=== PATIENT | female | born 1945 | race Caucasian/White ===

== ENCOUNTER → 2017-05-02 | Outpatient (CLI) | payer BC ==
[2015-03-08 14:41] VITALS: BP 107/54
[~2017-05-02] MED LIST: ASCO500C PO; ASPI-630 PO; CALC-42 PO; CARV12.52 PO; CHOL200074 PO; CITA40TA5 PO; CLON1TAB3 PO; DILT60TA3 PO; DOCU100C28 PO; EZET10TA18 PO; FLUT1DIS3 IH; FURO40TA4 PO; HYDR-2758 PO; INSU100V13 SQ; INSU100V8 SQ; LEVO50TA5 PO; LORA5SOL70 PO; METF500T9 PO; OMEG1CAP65 PO; POLY17PO29 PO; POT25TAB PO; POTA20PA21 PO; PROAIR HFA8.5 GM IH; SIMV40TA3 PO; SPIR25TA3 PO
--- NOTE | 2017-05-02 15:57 | RAD ---
Examination: 2 views of the chest. History: History of COPD, sleep apnea. Comparison: 03/05/2015 Findings: Low lung volumes accentuates heart size and pulmonary vascularity. Left-sided cardiac pacer /AICD is identified. Mild cardiomegaly. Linear atelectasis identified in the left lower lobe of the lung. Kyphotic and scoliotic changes of the thoracolumbar spine limits evaluation. Impression: 1. No acute cardiopulmonary findings.
== END | disposition home or self-care (01) ==
LOC: RAD 14:56
PROVIDERS: ATTEND Internal Medicine Pulmonary Disease
DX: J44.9 Chronic obstructive pulmonary disease, unspecified (principal)
CPT/HCPCS: 71020

== ENCOUNTER → 2017-05-28 | Outpatient (CLI) | payer BC ==
[2015-03-08 14:41] VITALS: BP 107/54
--- NOTE | 2017-05-28 17:28 | CARD ---
APPROVED REPORT EXAM: Two-dimensional and M-mode echocardiogram with Doppler and color Doppler. Other Information Quality : Technically Limited Rhythm : PacemakerTechnically limited study due to body habitus and positioning. INDICATION Cardiomyopathy 2D DIMENSIONS RVDd2.6 (2.9-3.5cm)Left Atrium(2D)4.1 (1.6-4.0cm) IVSd1.3 (0.7-1.1cm)Aortic Root(2D)2.9 (2.0-3.7cm) LVDd5.7 (3.9-5.9cm)LVOT Diameter2.3 (1.8-2.4cm) PWd1.3 (0.7-1.1cm)LVDs3.5 (2.5-4.0cm) SV111.5 mlLVEF(%)38.6 (>50%) Aortic Valve AoV Peak Amador.143.0cm/sAoV VTI29.1cm AO Peak GR.8.2mmHgLVOT Peak Amador.103.9cm/s LVOT VTI 20.29cmAO Mean GR.5mmHg GRAHAM (VMAX)3.55ro0ADK (VTI)2.89cm2 Mitral Valve MV E Crfwbzlv79.4cm/sMV DECEL UBWQ486zw MV A Qequmolx429.9cm/sMV E Mean Gr.2mmHg MV TWN83ryU/A Ratio0.8 MV A Kweshptz785ifSQO (PHT)4.26cm2 TDI E/Lateral E'8.9E/Medial E'9.5 Pulmonary Valve PV Peak Llsjpulo94.9cm/sPV Peak Grad.3mmHg RVOT VTI15.4cm Tricuspid Valve TR P. Fpzrynro928pg/sRAP PYBBREKF8ogOr TR Peak Gr.75uvAfUVNS22cpEk Pulmonary Vein S1 Dadedkts16.6cm/sD2 Oiaeqjkt32.8cm/s LEFT VENTRICLE Technically difficult study. The left ventricle is normal size. There is borderline to mild concentri c left ventricular hypertrophy. Left ventricle systolic function is moderately impaired. The Ejection Fraction is 35-40%. There is mild global hypokinesis of the left ventricle. Anterior wall appears mo derately hypokinetic. Tissue Doppler imaging reveals moderate left ventricular diastolic dysfunction. There is no ventricular septal defect visualized. RIGHT VENTRICLE The right ventricle is normal size. The right ventricular systolic function is normal. There is a pac emaker/ICD lead in the right ventricle and atrium. ATRIA The left atrium is borderline dilated. The right atrium size is normal. The interatrial septum is int act with no evidence for an atrial septal defect or patent foramen ovale as noted on 2-D or Doppler i maging. AORTIC VALVE The aortic valve is mildly to moderately sclerotic. Doppler and Color Flow revealed no significant ao rtic regurgitation. There is no significant aortic valvular stenosis. MITRAL VALVE Mitral annular calcification is mild to moderate. The mitral valve leaflets are thickened and calcifi ed. There is no mitral valve stenosis. Doppler and Color Flow revealed trace to mild mitral regurgita tion. TRICUSPID VALVE The tricuspid valve is not well visualized. Doppler and Color Flow revealed trace to mild tricuspid r egurgitation. The PA pressure was estimated at 26 mmHg. There is no tricuspid valve stenosis. PULMONIC VALVE The pulmonic valve is not well visualized. Doppler and Color Flow revealed no pulmonic valvular regur gitation. There is no pulmonic valvular stenosis. GREAT VESSELS The aortic root is normal in size. Normal pulmonary venous flow (Doppler). Due to poor image quality, the IVC could not be assessed. PERICARDIAL EFFUSION There is no evidence of significant pericardial effusion. Critical Notification Critical Value: No <Conclusion> Technically difficult study. The left ventricle is normal size. Left ventricle systolic function is moderately impaired. The Ejection Fraction is 35-40%. There is borderline to mild concentric left ventricular hypertrophy. There is a pacemaker/ICD lead in the right ventricle and atrium. There is no significant aortic valvular stenosis. Doppler and Color Flow revealed no significant aortic regurgitation. Doppler and Color Flow revealed trace to mild mitral regurgitation. Doppler and Color Flow revealed trace to mild tricuspid regurgitation. The PA pressure was estimated at 26 mmHg.
== END | disposition home or self-care (01) ==
LOC: ECHO 13:05
PROVIDERS: ATTEND Internal Medicine Cardiovascular Disease
DX: I42.8 Other cardiomyopathies (principal); Z95.0 Presence of cardiac pacemaker
CPT/HCPCS: 93306

== ENCOUNTER → 2017-07-09 | Outpatient (CLI) | payer BC ==
[2015-03-08 14:41] VITALS: BP 107/54
== END | disposition home or self-care (01) ==
LOC: PMGWOUND 11:33
PROVIDERS: ATTEND Emergency Medicine Undersea and Hyperbaric Medicine
DX: I87.312 Chronic venous hypertension (idiopathic) with ulcer of left lower extremity (principal); E11.622 Type 2 diabetes mellitus with other skin ulcer; L97.222 Non-pressure chronic ulcer of left calf with fat layer exposed; E78.5 Hyperlipidemia, unspecified; E03.9 Hypothyroidism, unspecified; F32.9 Major depressive disorder, single episode, unspecified; F41.9 Anxiety disorder, unspecified; I11.0 Hypertensive heart disease with heart failure; I50.9 Heart failure, unspecified; M19.90 Unspecified osteoarthritis, unspecified site; J44.9 Chronic obstructive pulmonary disease, unspecified; E66.01 Morbid (severe) obesity due to excess calories; Z87.891 Personal history of nicotine dependence; Z95.0 Presence of cardiac pacemaker; Z68.43 Body mass index [BMI] 50.0-59.9, adult
CPT/HCPCS: 97597

== ENCOUNTER → 2017-07-16 | Outpatient (CLI) | payer BC ==
[2015-03-08 14:41] VITALS: BP 107/54
[~2017-07-16] MED LIST changes: +ASCO500T2 PO; +CHOL10003 PO; +LORA1TAB PO; +METO-239 PO
== END | disposition home or self-care (01) ==
LOC: PMGWOUND 12:29
PROVIDERS: ATTEND Emergency Medicine Undersea and Hyperbaric Medicine
DX: I87.312 Chronic venous hypertension (idiopathic) with ulcer of left lower extremity (principal); L97.222 Non-pressure chronic ulcer of left calf with fat layer exposed; F41.9 Anxiety disorder, unspecified; J44.9 Chronic obstructive pulmonary disease, unspecified; E78.5 Hyperlipidemia, unspecified; I11.0 Hypertensive heart disease with heart failure; I50.9 Heart failure, unspecified; F32.9 Major depressive disorder, single episode, unspecified; E66.01 Morbid (severe) obesity due to excess calories; E03.9 Hypothyroidism, unspecified; M19.90 Unspecified osteoarthritis, unspecified site; Z68.43 Body mass index [BMI] 50.0-59.9, adult; Z87.891 Personal history of nicotine dependence; Z95.0 Presence of cardiac pacemaker
CPT/HCPCS: 97597

== ENCOUNTER → 2017-07-23 | Outpatient (CLI) | payer BC ==
[2015-03-08 14:41] VITALS: BP 107/54
[~2017-07-23] MED LIST changes: -ASCO500T2 PO; -CHOL10003 PO; -LORA1TAB PO; -METO-239 PO
== END | disposition home or self-care (01) ==
LOC: PMGWOUND 12:08
PROVIDERS: ATTEND Emergency Medicine Undersea and Hyperbaric Medicine
DX: I87.312 Chronic venous hypertension (idiopathic) with ulcer of left lower extremity (principal); L97.222 Non-pressure chronic ulcer of left calf with fat layer exposed; E78.5 Hyperlipidemia, unspecified; E03.9 Hypothyroidism, unspecified; F32.9 Major depressive disorder, single episode, unspecified; F41.9 Anxiety disorder, unspecified; I11.0 Hypertensive heart disease with heart failure; I50.9 Heart failure, unspecified; E66.01 Morbid (severe) obesity due to excess calories; M19.90 Unspecified osteoarthritis, unspecified site; J44.9 Chronic obstructive pulmonary disease, unspecified; Z87.891 Personal history of nicotine dependence; Z68.43 Body mass index [BMI] 50.0-59.9, adult; Z95.0 Presence of cardiac pacemaker
CPT/HCPCS: 99214

== ENCOUNTER → 2017-07-30 | Outpatient (CLI) | payer BC ==
[2015-03-08 14:41] VITALS: BP 107/54
[~2017-07-30] MED LIST changes: +ASCO500T2 PO; +CHOL10003 PO; +LORA1TAB PO; +METO-239 PO
== END | disposition home or self-care (01) ==
LOC: PMGWOUND 08:29
PROVIDERS: ATTEND Emergency Medicine Undersea and Hyperbaric Medicine
DX: I87.312 Chronic venous hypertension (idiopathic) with ulcer of left lower extremity (principal); E11.622 Type 2 diabetes mellitus with other skin ulcer; L97.222 Non-pressure chronic ulcer of left calf with fat layer exposed; I11.0 Hypertensive heart disease with heart failure; I50.9 Heart failure, unspecified; E78.5 Hyperlipidemia, unspecified; E03.9 Hypothyroidism, unspecified; F41.9 Anxiety disorder, unspecified; M19.90 Unspecified osteoarthritis, unspecified site; F32.9 Major depressive disorder, single episode, unspecified; J44.9 Chronic obstructive pulmonary disease, unspecified; E66.01 Morbid (severe) obesity due to excess calories; Z68.43 Body mass index [BMI] 50.0-59.9, adult; Z87.891 Personal history of nicotine dependence
CPT/HCPCS: 99214

== ENCOUNTER → 2017-08-01 | Day surgery (SDC) | payer BC ==
[~2017-08-01] MED LIST changes: -ASCO500C PO; -ASCO500T2 PO; -ASPI-630 PO; -CALC-42 PO; -CARV12.52 PO; -CHOL10003 PO; -CHOL200074 PO; -CITA40TA5 PO; -CLON1TAB3 PO; -DILT60TA3 PO; -DOCU100C28 PO; -EZET10TA18 PO; -FLUT1DIS3 IH; -FURO40TA4 PO; -HYDR-2758 PO; +HYDROmorphone 2 MG/ML VIAL IV; -INSU100V13 SQ; -INSU100V8 SQ; -LEVO50TA5 PO; +LIDOCAINE 1% PF 2 ML VIAL. ID; +LIDOCAINE 2% PF Vial for OR 5 ML VIAL.; -LORA1TAB PO; -LORA5SOL70 PO; -METF500T9 PO; -METO-239 PO; +MORPHINE SULFATE 2 MG/ML DISP.SYRIN. IV; -OMEG1CAP65 PO; +ONDANSETRON PF 4 MG/2 ML VIAL. IV; -POLY17PO29 PO; -POT25TAB PO; -POTA20PA21 PO; -PROAIR HFA8.5 GM IH; +PROCHLORPERAZINE 10 MG/2 ML VIAL. IV; +PROPOFOL 20 ML IV; -SIMV40TA3 PO; -SPIR25TA3 PO; +fentaNYL PF VIAL 100 MCG/2 ML VIAL IV
[2017-08-01] MEDS: IV RINGERS,LACTATED 1000ML 1,000 ML IV (12:14)
[2017-08-01 12:22] LABS: POC GLUCOSE 120 mg/dL (70-99)
== END | disposition home or self-care (01) ==
LOC: ENDOS 10:00
DX: Z09 Encounter for follow-up examination after completed treatment for conditions other than malignant neoplasm (principal); Z86.010 Personal history of colon polyps; K64.0 First degree hemorrhoids; K57.30 Diverticulosis of large intestine without perforation or abscess without bleeding; I11.0 Hypertensive heart disease with heart failure; I50.9 Heart failure, unspecified; E11.9 Type 2 diabetes mellitus without complications; J44.9 Chronic obstructive pulmonary disease, unspecified; E66.9 Obesity, unspecified; M19.91 Primary osteoarthritis, unspecified site; E03.9 Hypothyroidism, unspecified; F41.9 Anxiety disorder, unspecified; F32.9 Major depressive disorder, single episode, unspecified; F17.200 Nicotine dependence, unspecified, uncomplicated; Z87.01 Personal history of pneumonia (recurrent); Z98.890 Other specified postprocedural states; Z86.39 Personal history of other endocrine, nutritional and metabolic disease; Z88.1 Allergy status to other antibiotic agents; Z88.0 Allergy status to penicillin; Z88.8 Allergy status to other drugs, medicaments and biological substances
CPT/HCPCS: 45378; 82962; J0690; J2704

== ENCOUNTER → 2017-11-07 | Outpatient (CLI) | payer BC | END | disposition home or self-care (01) | LOC: RAD 13:30 | DX: J98.11 Atelectasis (principal); I51.7 Cardiomegaly; M40.294 Other kyphosis, thoracic region; J98.6 Disorders of diaphragm | CPT/HCPCS: 71046 ==

== ENCOUNTER 2018-09-05 09:14 | Observation (INO) | payer OTHER ==
[~2018-09-05] VITALS: Ht 152.4 cm; Wt 135.8 kg
[~2018-09-05 09:14] MED LIST changes: +ALBU2.5V8 IH; +ASCO500C PO; +ASCO500T2 PO; +ASPI-630 PO; +CALC-42 PO; +CARV12.511 PO; +CHOL10003 PO; +CHOL200074 PO; +CITA40TA5 PO; +CLON1TAB11 PO; +DILT60TA3 PO; +DOCU100C28 PO; +EZET10TA18 PO; +FLUT1DIS3 IH; +FURO40TA4 PO; +HYDR-2761 PO; -HYDROmorphone 2 MG/ML VIAL IV; +HYDROmorphone 2 MG/ML VIAL IV PRN; +INSU100V13 SQ; +INSU100V8 SQ; +IV RINGERS,LACTATED 1000ML 1,000 ML IV SCH; +LEVO50TA5 PO; -LIDOCAINE 1% PF 2 ML VIAL. ID; +LIDOCAINE 1% PF 2 ML VIAL. ID PRN; -LIDOCAINE 2% PF Vial for OR 5 ML VIAL.; +LORA1TAB PO; +LORA5SOL70 PO; +METF500T9 PO; +METO-239 PO; -MORPHINE SULFATE 2 MG/ML DISP.SYRIN. IV; +MORPHINE SULFATE 4 MG/ML VIAL. IV PRN; +OMEG1CAP65 PO; -ONDANSETRON PF 4 MG/2 ML VIAL. IV; +ONDANSETRON PF 4 MG/2 ML VIAL. IV PRN; +POLY17PO29 PO; +POT25TAB PO; +POTA20PA21 PO; -PROCHLORPERAZINE 10 MG/2 ML VIAL. IV; +PROCHLORPERAZINE 10 MG/2 ML VIAL. IV PRN; -PROPOFOL 20 ML IV; +SIMV40TA3 PO; +SPIR25TA5 PO; -fentaNYL PF VIAL 100 MCG/2 ML VIAL IV; +fentaNYL PF VIAL 100 MCG/2 ML VIAL IV PRN
[2018-09-05 09:53] VITALS: BP 152/73
[2018-09-05 10:44] LABS: HEMATOCRIT 43.3 % (36.0-47.0); HEMOGLOBIN 15.1 g/dL (12.0-15.5); RED BLOOD COUNT 4.8 x10^6/uL (3.50-5.40); RED CELL DISTRIBUTION WIDTH 13.7 % (11.5-14.5); WHITE BLOOD COUNT 7.3 x10^3/uL (4.0-11.0)
[2018-09-05 10:56] LABS: CALCIUM 9.6 mg/dL (8.5-10.1); CREATININE 1.1 mg/dL (0.6-1.0); POTASSIUM 4.4 mmol/L (3.5-5.1)
[2018-09-05 10:58] LABS: PROTHROMBIN TIME PATIENT 13.7 SEC (11.7-14.0)
[2018-09-05] MEDS ORDERED: BACITRACIN 50,000 UNIT in IV NORMAL SALINE 250ML 250 ML IRR ONE (11:00)
[2018-09-05] MEDS ORDERED: VANCOMYCIN 1GM IVPB FOR OMNI 250 ML IV PRN (11:00)
[2018-09-05] MEDS ORDERED: PROPOFOL 20 ML IV ONE (11:13)
[2018-09-05] MEDS ORDERED: PROPOFOL 50 ML IV ONE (11:13)
[2018-09-05] MEDS ORDERED: MIDAZOLAM HCL/PF 2 MG/2 ML VIAL. ONE ×3 (11:13→12:14)
--- NOTE | 2018-09-05 11:43 | PDOC ---
MODERATE SEDATION ASSESSMENT RISKS/ALTERNATIVES Risks/Alternatives Risks and alternatives of this type of sedation and procedure discussed with: RISK/ALTERNATIVES: Patient H & P ON CHART H & P H & P on chart and reviewed for co-morbid conditions and appropriate labs. H&P ON CHART: Yes STATUS PREG STATUS ASSESSED: N/A MEDS/ALLERGIES REVIEWED Meds/Allergies Reviewed Medications and Allergies including time and route of recently administered narcotics and sedatives. MEDS/ALLERGIES REVIEWED: Yes ASA RATING ASA RATING: III AIRWAY ASSESSMENT Airway Assessment Airway patency, oral function limitations, presence of caps, crowns, dentures, partials, and ability to extend neck assessed. AIRWAY ASSESSMENT: Yes MALLAMPATI SCORE MALLAMPATI SCORE: II PRE-SEDATION ASSESSMENT PRE-SEDATION ASSESSMENT: Yes KIRK BRUSH MD Sep 05, 2018 11:43
[2018-09-05] MEDS ORDERED: VANCOMYCIN 1GM IVPB FOR OMNI 250 ML ONE (11:47)
[2018-09-05] MEDS ORDERED: LIDOCAINE 2%/EPI 1:100,000 20 ML VIAL. ONE (11:50)
[2018-09-05] MEDS ORDERED: LIDOCAINE 2%/EPI 1:100,000 20 ML VIAL. IJ ONE (12:00)
[2018-09-05 13:18] VITALS: BP 121/66
[2018-09-05] MEDS ORDERED: ONDANSETRON PF 4 MG/2 ML VIAL. ONE (13:28)
[2018-09-05] MEDS ORDERED: NO ANTICOAGULANT THERAPY. MC PRN (13:30)
--- NOTE | 2018-09-05 14:37 | CARD ---
MR#: [id number] Date of Study: 09/05/2018 Ordering Physician: KIRK STALLINGS, Referring Physician: KIRK STALLINGS, Tech: APPROVED REPORT EXAM Successful [employer] biventricular ICD/DIGITAL INTERN-D new right ventricular lead insertion with generator bradley nge Defibrillation threshold measurement of the time of implantation INDICATIONS Nonischemic cardiomyopathy and prolonged QRS interval s/p biventricular ICD/DIGITAL INTERN-D implantation in the past presenting with device malfunction from right ventricle lead fracture PROCEDURE After explaining the risks, benefits, and alternative options, informed consent was obtained from the patient. The patient was brought to the cardiac catheterization lab and the left chest and shoulder were prepp ed and draped in the usual fashion. 30 mL of 2% lidocaine was infiltrated into the skin and subcutaneous tissues for local anesthesia. An incision was made over the previous scar and using blunt dissection and cautery the pocket was opene d, capsule exposed and opened and the previously placed generator removed from the pocket. The fractu red right ventricular lead was detached and. Venous access was obtained in the left subclavian vein a nd [address] Croatian [address] A [employer] bipolar active fixation right ventricular lead model 7122Q/ 58, serial number [id number] was advanced under fluoroscopy guidance and the tip was positioned in the right ventricle apex. This lead along with the previously placed right atrial and left ventricular l michelle were attached to a new [employer] biventricular ICD/DIGITAL INTERN-D generator model [id number], serial num mariana [id number]. This was placed in the pocket was subsequently closed in 3 layers. Hemostasis was secure d. Ventricular fibrillation was then induced to check the defibrillation threshold. Patient successfully converted to sinus rhythm with 25 J shock therapy with a shock impedance of 102 ohms. The right vent ricle lead showed sensing amplitude of 13 mV, impedance of 850 ohms and threshold of 0.5 V. Patient t olerated the procedure well. There were no immediate complications. CONCLUSION Successful [employer] biventricular ICD/DIGITAL INTERN-D right ventricular lead insertion with generator change for device malfunction secondary to right ventricle lead fracture. Signed by : Kirk Stallings, Electronically Approved : 09/05/2018 14:35:35
--- NOTE | 2018-09-05 15:16 | RAD ---
Portable chest, 09/05/2018: HISTORY: Check pacemaker placement Comparison is made to a study from 11/07/2017. A left-sided transvenous pacing device is in place there are 2 leads extending into the right ventricle. An additional lead overlying the left side of the heart presumably lies in a cardiac vein. The heart is enlarged. There is calcific plaquing the aorta. The right hemidiaphragm remains moderately elevated. There is mild linear scarring in the left midlung. No acute infiltrate is seen. There is no evidence of pneumothorax or pleural fluid. IMPRESSION: 1. Chronic elevation of the right hemidiaphragm. 2. Left midlung scarring. 3. Cardiomegaly and aortic atherosclerosis. Electronically signed by: Julito Hyatt MD (09/05/2018 3:12 PM) [facility]
[2018-09-05 15:35] VITALS: BP 129/63
[2018-09-05] MEDS: ALBUTEROL SULFATE 2.5 MG/3 ML NEBU. NEB SCH ×2 (17:07→20:26)
[2018-09-05] MEDS: metFORMIN 500 MG TABLET PO SCH (18:37)
[2018-09-05] MEDS: HYDROcodone/APAP 5/325MG 1 TAB TABLET PO PRN (18:38)
[2018-09-05] MEDS: LORazepam 1 MG TABLET PO SCH ×2 (18:41→23:23)
[2018-09-05 19:35] VITALS: BP 124/63
[2018-09-05] MEDS: BUDESONIDE 0.5 MG/2 ML NEBU. NEB SCH (20:26)
[2018-09-05] MEDS ORDERED: NON FORMULARY ITEM (Fluticasone/Salmeterol (Advair 250-50 Diskus) 1 PUFF) IH SCH (21:00)
[2018-09-05] MEDS: DOCUSATE SODIUM 100 MG CAPSULE. PO SCH (21:22)
[2018-09-05] MEDS: SPIRONOLACTONE 25 MG TABLET PO SCH (21:23)
[2018-09-05] MEDS: SIMVASTATIN 40 MG TABLET. PO SCH (21:23)
[2018-09-05] MEDS: INSULIN GLARGINE 300 UNITS/3 ML INSULN.PEN. SQ SCH (21:32)
[2018-09-05 23:00] VITALS: BP 126/52
[2018-09-05] MEDS ORDERED: VANCOMYCIN 1 GM in IV DEXTROSE 5% 250 ML IV ONE (23:30)
[2018-09-06 03:00] VITALS: BP 129/56
[2018-09-06] MEDS: HYDROcodone/APAP 5/325MG 1 TAB TABLET PO PRN ×3 (06:13→22:06)
[2018-09-06] MEDS: LEVOTHYROXINE 50 MCG TABLET PO SCH (06:13)
[2018-09-06 07:00] VITALS: BP 153/74
[2018-09-06] MEDS: METOPROLOL SUCC 24HR ER 50 MG TAB.ER.24H. PO SCH (08:55)
[2018-09-06] MEDS: DOCUSATE SODIUM 100 MG CAPSULE. PO SCH ×2 (08:55→22:06)
[2018-09-06] MEDS: CITALOPRAM 20 MG TABLET. PO SCH (08:55)
[2018-09-06] MEDS: SPIRONOLACTONE 25 MG TABLET PO SCH ×2 (08:55→22:06)
[2018-09-06] MEDS: EZETIMIBE 10 MG TABLET. PO SCH (08:55)
[2018-09-06] MEDS: metFORMIN 500 MG TABLET PO SCH ×2 (08:55→17:54)
[2018-09-06] MEDS: CETIRIZINE HCL 10 MG TABLET. PO SCH (08:56)
[2018-09-06] MEDS: FUROSEMIDE 40 MG TABLET. PO SCH (08:56)
[2018-09-06] MEDS: ASPIRIN CHEWABLE 81 MG TABLET. PO SCH (08:56)
[2018-09-06] MEDS: LORazepam 1 MG TABLET PO SCH ×3 (09:00→22:05)
[2018-09-06] MEDS: BUDESONIDE 0.5 MG/2 ML NEBU. NEB SCH ×2 (09:49→19:57)
[2018-09-06] MEDS: ALBUTEROL SULFATE 2.5 MG/3 ML NEBU. NEB SCH ×4 (09:49→19:58)
[2018-09-06] MEDS: INSULIN GLARGINE 300 UNITS/3 ML INSULN.PEN. SQ SCH ×2 (10:05→22:22)
[2018-09-06 11:00] VITALS: BP 155/70
[2018-09-06 15:00] VITALS: BP 168/72
[2018-09-06] MEDS: NYSTATIN TOPICAL POWDER 15GM BOTTLE. TP SCH ×2 (15:02→22:05)
--- NOTE | 2018-09-06 15:04 | RAD ---
Exam performed one view chest HISTORY: One day post pacemaker placement DATE OF SERVICE: 09/06/2018. COMPARISON: One view chest from 09/05/2018. Single AP upright portable view chest findings: Study somewhat limited due to poor respiratory effort. Heart size and mediastinal silhouette is stable. Pulmonary vascularity is mildly congested. There is a bipolar pacemaker in place. No pneumothorax. Mild linear left basilar opacities probably atelectasis. IMPRESSION: Stable mild cardiomegaly. Left-sided bipolar pacemaker. No pneumothorax seen. Electronically signed by: Jazz Albert MD (09/06/2018 3:00 PM) [facility]
[2018-09-06] MEDS ORDERED: MORPHINE SULFATE 4 MG/ML VIAL. IM ONE (17:30)
[2018-09-06] MEDS ORDERED: MORPHINE SULFATE 4 MG/ML VIAL. IV ONE (18:30)
[2018-09-06 19:47] VITALS: BP 162/56
[2018-09-06] MEDS: SIMVASTATIN 40 MG TABLET. PO SCH (22:06)
[2018-09-06 23:12] VITALS: BP 167/62
[2018-09-07] MEDS: HYDROcodone/APAP 5/325MG 1 TAB TABLET PO PRN ×3 (02:23→17:03)
[2018-09-07 03:07] VITALS: BP 160/70
[2018-09-07] MEDS: LEVOTHYROXINE 50 MCG TABLET PO SCH (06:00)
[2018-09-07 07:00] VITALS: BP 143/63
[2018-09-07] MEDS: BUDESONIDE 0.5 MG/2 ML NEBU. NEB SCH ×2 (08:06→19:18)
[2018-09-07] MEDS: ALBUTEROL SULFATE 2.5 MG/3 ML NEBU. NEB SCH ×4 (08:06→19:19)
[2018-09-07] MEDS: EZETIMIBE 10 MG TABLET. PO SCH (08:36)
[2018-09-07] MEDS: DOCUSATE SODIUM 100 MG CAPSULE. PO SCH ×2 (08:36→21:19)
[2018-09-07] MEDS: SPIRONOLACTONE 25 MG TABLET PO SCH ×2 (08:37→21:20)
[2018-09-07] MEDS: METOPROLOL SUCC 24HR ER 50 MG TAB.ER.24H. PO SCH (08:37)
[2018-09-07] MEDS: CITALOPRAM 20 MG TABLET. PO SCH (08:37)
[2018-09-07] MEDS: metFORMIN 500 MG TABLET PO SCH ×2 (08:37→17:01)
[2018-09-07] MEDS: FUROSEMIDE 40 MG TABLET. PO SCH (08:37)
[2018-09-07] MEDS: CETIRIZINE HCL 10 MG TABLET. PO SCH (08:37)
[2018-09-07] MEDS: ASPIRIN CHEWABLE 81 MG TABLET. PO SCH (08:37)
[2018-09-07] MEDS: NYSTATIN TOPICAL POWDER 15GM BOTTLE. TP SCH ×2 (08:41→21:20)
[2018-09-07] MEDS: INSULIN GLARGINE 300 UNITS/3 ML INSULN.PEN. SQ SCH ×2 (08:41→21:26)
[2018-09-07] MEDS: LORazepam 1 MG TABLET PO SCH ×3 (08:42→21:19)
[2018-09-07 11:00] VITALS: BP 140/61
--- NOTE | 2018-09-07 12:55 | PDOC ---
CARDIOLOGY PROGRESS NOTE SUBJECTIVE: Continued left arm pain from procedure. Doing better today. Denies any dyspnea, chest pain She is very debilitated and even unable to get up discussed/seen with RN at bedside. OBJECTIVE: Vital SIgns: Vital Signs Date Time Temp Pulse Resp B/P (MAP) Pulse Ox O2 Delivery O2 Flow Rate FiO2 09/07/18 12:08 94 Nasal Cannula 2.0 09/07/18 11:00 98.2 84 18 140/61 (87) 98.2 I & O Intake and Output 09/07/18 07:01 Intake Total 950 ml Output Total 910 ml Balance 40 ml Intake Oral 950 ml Output Urine Total 910 ml Objective: Morbidly obese. L pacer site is c/d/i. No edema of the LUE. Trace bilat lower ext edema. Normal heart tones. CURRENT MEDICATIONS: Current Medications Medications (Trade) Dose Ordered Sig/Rubina Start Time Stop Time Status Last Admin Dose Admin Acetaminophen/ Hydrocodone Bitart (Lortab 5/325) 1 tab PRN Q4HRS PRN 09/06/18 18:00 09/07/18 08:37 1 TAB Albuterol Sulfate (Ventolin Neb Soln) 2.5 mg RTQID 09/05/18 16:00 09/07/18 12:08 2.5 MG Aspirin (Children'S Aspirin) 81 mg DAILY 09/06/18 09:00 09/07/18 08:37 81 MG Bacitracin 27280 unit/Sodium Chloride 250 ml @ 250 mls/hr 1X ONCE 09/05/18 11:00 09/05/18 11:59 DC 09/05/18 11:00 250 MLS/HR Budesonide (Pulmicort) 0.5 mg RTBID 09/05/18 20:00 09/07/18 08:06 0.5 MG Cetirizine HCl (ZyrTEC) 10 mg DAILY 09/06/18 09:00 09/07/18 08:37 10 MG Citalopram Hydrobromide (CeleXA) 40 mg DAILY 09/06/18 09:00 09/07/18 08:37 40 MG Docusate Sodium (Colace) 100 mg BID 09/05/18 21:00 09/07/18 08:36 100 MG EZETIMIBE (Zetia) 10 mg DAILY 09/06/18 09:00 09/07/18 08:36 10 MG Fentanyl Citrate (Fentanyl 2ml Vial) 50 mcg PRN Q5MIN PRN 09/05/18 07:00 09/06/18 06:59 DC Furosemide (Lasix) 40 mg DAILY 09/06/18 09:00 09/07/18 08:37 40 MG Hydromorphone HCl (Dilaudid) 0.5 mg PRN Q10MIN PRN 09/05/18 07:00 09/06/18 06:59 DC Info (No Anticoagulant Therapy) 1 ea CONT PRN PRN 09/05/18 13:30 Insulin Glargine (Lantus) 40 units BID 09/05/18 21:00 09/07/18 08:41 40 UNITS Levothyroxine Sodium (Synthroid) 50 mcg DAILY06 09/06/18 06:00 09/07/18 06:00 50 MCG Lidocaine HCl (Xylocaine-Mpf 1% 2ml Vial) 2 ml PRN 1X PRN 09/05/18 07:00 09/06/18 06:59 DC Lidocaine/ Epinephrine (LIDOCAINE 2%-EPI 1:100,000 multi-dose) 30 ml 1X ONCE 09/05/18 12:00 09/05/18 12:01 DC 09/05/18 12:00 30 ML Lorazepam (Ativan) 1 mg TID 09/05/18 16:00 09/06/18 22:05 1 MG Metformin HCl (Glucophage) 500 mg BIDWMEALS 09/05/18 17:00 09/07/18 08:37 500 MG Metoprolol Succinate (Toprol Xl) 50 mg DAILY 09/06/18 09:00 09/07/18 08:37 50 MG Midazolam HCl (Versed) 2 mg STK-MED ONCE 09/05/18 12:14 09/05/18 12:16 DC Morphine Sulfate (Morphine Sulfate) 2 mg 1X ONCE 09/06/18 18:30 09/06/18 18:31 DC 09/06/18 18:14 2 MG Non-Formulary Medication (Fluticasone/ Salmeterol (Advair 250-50 Diskus)) 1 puff BID 09/05/18 21:00 UNV Nystatin (Nystop) 1 tello BID 09/06/18 14:31 09/07/18 08:41 1 TELLO Ondansetron HCl (Zofran) 4 mg STK-MED ONCE 09/05/18 13:28 09/05/18 13:30 DC Prochlorperazine Edisylate (Compazine) 5 mg PACU PRN PRN 09/05/18 07:00 09/06/18 06:59 DC Propofol 50 ml @ As Directed STK-MED ONCE 09/05/18 11:13 09/05/18 11:15 DC Ringer's Solution 1,000 ml @ 30 mls/hr Q24H 09/05/18 07:00 09/05/18 18:43 DC Simvastatin (Zocor) 40 mg QHS 09/05/18 21:00 09/06/18 22:06 40 MG Spironolactone (Aldactone) 25 mg BID 09/05/18 21:00 09/07/18 08:37 25 MG Vancomycin HCl 250 ml @ As Directed STK-MED ONCE 09/05/18 11:47 09/05/18 11:49 DC Vancomycin HCl 1 gm/Dextrose 250 ml @ 250 mls/hr 1X ONCE 09/05/18 23:30 09/06/18 00:29 DC 09/05/18 23:22 250 MLS/HR ASSESSMENT: 1. Debility 2. s/p BiV ICD 3. HTN 4. NICM PLAN: 1 Plan for DC to rehab when bed available. 2. Continue present meds. Consider outpt entresto. DAYAMI NIX MD Sep 07, 2018 12:55
[2018-09-07 15:00] VITALS: BP 120/63
[2018-09-07 19:57] VITALS: BP 107/59
[2018-09-07] MEDS: SIMVASTATIN 40 MG TABLET. PO SCH (21:19)
[2018-09-07 23:26] VITALS: BP 129/72
[2018-09-08] MEDS ORDERED: ACETAMINOPHEN 325 MG TABLET. PO ONE (02:00)
[2018-09-08 02:03] VITALS: BP 154/56
[2018-09-08] MEDS: LEVOTHYROXINE 50 MCG TABLET PO SCH (06:19)
[2018-09-08 07:00] VITALS: BP 134/64
[2018-09-08] MEDS: BUDESONIDE 0.5 MG/2 ML NEBU. NEB SCH (07:49)
[2018-09-08] MEDS: ALBUTEROL SULFATE 2.5 MG/3 ML NEBU. NEB SCH ×3 (07:49→16:35)
[2018-09-08] MEDS ORDERED: HYDROcodone/APAP 5/325MG 1 TAB TABLET PO PRN ×2 (08:45→12:30)
[2018-09-08] MEDS: NYSTATIN TOPICAL POWDER 15GM BOTTLE. TP SCH (09:18)
[2018-09-08] MEDS: CETIRIZINE HCL 10 MG TABLET. PO SCH (09:18)
[2018-09-08] MEDS: EZETIMIBE 10 MG TABLET. PO SCH (09:24)
[2018-09-08] MEDS: LORazepam 1 MG TABLET PO SCH ×2 (09:24→13:25)
[2018-09-08] MEDS: CITALOPRAM 20 MG TABLET. PO SCH (09:24)
[2018-09-08] MEDS: metFORMIN 500 MG TABLET PO SCH (09:25)
[2018-09-08] MEDS: ASPIRIN CHEWABLE 81 MG TABLET. PO SCH (09:26)
[2018-09-08] MEDS: DOCUSATE SODIUM 100 MG CAPSULE. PO SCH (09:26)
[2018-09-08] MEDS: SPIRONOLACTONE 25 MG TABLET PO SCH (09:26)
[2018-09-08] MEDS: FUROSEMIDE 40 MG TABLET. PO SCH (09:26)
[2018-09-08] MEDS: METOPROLOL SUCC 24HR ER 50 MG TAB.ER.24H. PO SCH (09:26)
[2018-09-08] MEDS: INSULIN GLARGINE 300 UNITS/3 ML INSULN.PEN. SQ SCH (09:32)
--- NOTE | 2018-09-08 10:04 | PDOC ---
MILTON HENRY [employer] 09/08/18 1004: CARDIO Progress Notes Date and Time Date of Service 09/08/18 Time of Evaluation 0950 Subjective Subjective: No Chest Pain, No shortness of breath, Other (c/o right lower back pain) Vitals Vitals Vital Signs Date Time Temp Pulse Resp B/P (MAP) Pulse Ox O2 Delivery O2 Flow Rate FiO2 09/08/18 09:26 75 134/64 09/08/18 09:24 18 Room Air 09/08/18 07:49 94 2.0 09/08/18 07:00 98.8 98.8 Weight Weight [ ] Input and Output Intake and Output Intake and Output 09/08/18 07:01 Intake Total 720 ml Output Total 2275 ml Balance -1555 ml Intake Oral 720 ml Output Urine Total 2275 ml Laboratory Labs Laboratory Tests Test 09/07/18 11:11 09/07/18 17:13 09/07/18 21:03 09/08/18 07:41 Glucose (Fingerstick) 203 mg/dL (70-99) 177 mg/dL (70-99) 218 mg/dL (70-99) 166 mg/dL (70-99) Physical Exam HEENT: Neck Supple W Full Motion Chest: Symmetric LUNGS: Clear to Auscultation, Other (left pectoral PPM insertion site; incision well-approximated. No hematoma, erythema) Heart: S1S2, RRR Abdomen: Soft N/T Extremities: No Edema Neurology: alert, oriented, follow commands Assessment Assessment 1. Debility; PT/OT recommend rehab. Awaiting insurance approval/facility acceptance 2. Chronic systolic HF; compensated 3. NICM s/p BiV AICD ([employer]). s/p RV lead insertion with generator change for device malfunction secondary to lead fracture. 4. Hypertension 5. Diabetes,II 6. COPD, MIRIAM Recommendations Ongoing PT/OT Encouraged ambulation Resume home Lortab for pain control Transfer to rehab facility when accepted. SIM SHAW MD 09/08/18 2981: CARDIO Progress Notes Plan Plan Patient seen and examined Feeling better but still weak. Chronic systolic heart failure. Compensated. Continuing present medications. Nonischemic cardiomyopathy. Status post right ventricular lead revision and generator placement. Normal functioning. Continue present treatment. Hypertension. Controlled on present medications. Debility. Patient is unable to care for herself. Awaiting transfer to rehabilitation. MILTON HENRY APRN Sep 08, 2018 10:04 SIM SHAW MD Sep 08, 2018 17:48
[2018-09-08 11:20] VITALS: BP 146/62
[2018-09-08 15:06] VITALS: BP 148/72
== END 2018-09-08 16:45 ==
LOC: CCL 09:14 → 2 NORTH 09:50 → INTOOBSV 09:50
PROVIDERS: ADMIT Internal Medicine Cardiovascular Disease; ATTEND Internal Medicine Cardiovascular Disease
DX: I50.22 Chronic systolic (congestive) heart failure (principal); E78.5 Hyperlipidemia, unspecified; Z95.810 Presence of automatic (implantable) cardiac defibrillator; I11.0 Hypertensive heart disease with heart failure; E11.9 Type 2 diabetes mellitus without complications; F41.9 Anxiety disorder, unspecified; F32.9 Major depressive disorder, single episode, unspecified; C81.70 Other Hodgkin lymphoma, unspecified site; G83.9 Paralytic syndrome, unspecified; K76.0 Fatty (change of) liver, not elsewhere classified; M19.90 Unspecified osteoarthritis, unspecified site; G47.33 Obstructive sleep apnea (adult) (pediatric); M79.7 Fibromyalgia; I11.9 Hypertensive heart disease without heart failure; I43 Cardiomyopathy in diseases classified elsewhere; J44.9 Chronic obstructive pulmonary disease, unspecified; J45.909 Unspecified asthma, uncomplicated; M25.569 Pain in unspecified knee; I27.20 Pulmonary hypertension, unspecified; I25.10 Atherosclerotic heart disease of native coronary artery without angina pectoris; M71.50 Other bursitis, not elsewhere classified, unspecified site; K57.90 Diverticulosis of intestine, part unspecified, without perforation or abscess without bleeding; M25.00 Hemarthrosis, unspecified joint; Z98.890 Other specified postprocedural states
CPT/HCPCS: 33264; 36415; 71045; 80048; 82962; 85027; 85610; 93641; 94640; 94760; 96365; 96372; 96375; 97162; 97166; C1882; C1895; G0378; G0379; G8987; G8988; G8989; J1815; J2250; J2270; J2704; J3010; J3370; J3490; J7050; J7613; J7626; 33249; J7030

== ENCOUNTER 2018-09-22 23:42 | Inpatient (IN) | payer OTHER ==
[~2018-09-22] VITALS: Ht 160 cm; Wt 139.7 kg
[~2018-09-22 23:42] MED LIST changes: -HYDROmorphone 2 MG/ML VIAL IV PRN; -IV RINGERS,LACTATED 1000ML 1,000 ML IV SCH; -LIDOCAINE 1% PF 2 ML VIAL. ID PRN; -MORPHINE SULFATE 4 MG/ML VIAL. IV PRN; -ONDANSETRON PF 4 MG/2 ML VIAL. IV PRN; -PROCHLORPERAZINE 10 MG/2 ML VIAL. IV PRN; -fentaNYL PF VIAL 100 MCG/2 ML VIAL IV PRN
[2018-09-23 01:06] LABS: BILIRUBIN,URINE NEGATIVE (NEG); CLARITY,URINE CLEAR; COLOR,URINE YELLOW; NITRITE,URINE NEGATIVE (NEG); PROTEIN,URINE NEGATIVE (NEG-TRACE); UROBILINOGEN,URINE 0.2 mg/dL (0.2 mg/dL)
[2018-09-23 01:17] LABS: AMORPHOUS SEDIMENT,UR PRESENT /HPF; BACTERIA,URINE FEW /HPF (0-FEW); RBC,URINE 0 /HPF (0-2); SQUAMOUS EPITHELIAL CELL,UR MANY /LPF
--- NOTE | 2018-09-23 01:25 | PHYS DOC ---
Past Medical History Past Medical History: CHF, COPD, Diabetes-Type II, Fibromyalgia, High Cholesterol, Hypertension, Other Additional Past Medical Histor: OSTEOARTHRITIS Past Surgical History: Appendectomy, Pacemaker, Tonsillectomy Alcohol Use: None Drug Use: None Adult General Chief Complaint Chief Complaint: POST-OP PROBLEM HPI HPI Patient is a 72 year old [f__sex] who presents with [] Review of Systems Review of Systems Constitutional: Denies fever or chills [] Eyes: Denies change in visual acuity, redness, or eye pain [] HENT: Denies nasal congestion or sore throat [] Respiratory: Denies cough or shortness of breath [] Cardiovascular: No additional information not addressed in HPI [] GI: Denies abdominal pain, nausea, vomiting, bloody stools or diarrhea [] : Denies dysuria or hematuria [] Musculoskeletal: Denies back pain or joint pain [] Integument: Denies rash or skin lesions [] Neurologic: Denies headache, focal weakness or sensory changes [] Endocrine: Denies polyuria or polydipsia [] All other systems were reviewed and found to be within normal limits, except as documented in this note. Current Medications Current Medications Current Medications Medications (Trade) Dose Ordered Sig/Rubina Start Time Stop Time Status Last Admin Dose Admin Clindamycin Phosphate 50 ml @ 100 mls/hr 1X ONCE 09/23/18 03:00 09/23/18 03:29 Dextrose (Dextrose 50%-Water Syringe) 12.5 gm PRN Q15MIN PRN 09/23/18 02:45 Fentanyl Citrate (Fentanyl 2ml Vial) 25 mcg PRN Q2HRS PRN 09/23/18 02:45 Insulin Human Lispro (HumaLOG) 0-5 UNITS TIDWMEALS 09/23/18 08:00 Magnesium Sulfate 50 ml @ 25 mls/hr 1X ONCE 09/23/18 03:00 09/23/18 04:59 Ondansetron HCl (Zofran) 4 mg PRN Q8HRS PRN 09/23/18 02:45 09/24/18 02:44 Allergies Allergies Allergies Coded Allergies Type Severity Reaction Last Updated Verified YURY Inhibitors Allergy Intermediate 08/01/17 Yes Penicillins Allergy Intermediate 08/01/17 Yes droperidol Allergy Intermediate 08/01/17 Yes nitrofurantoin Allergy Intermediate 08/01/17 Yes Physical Exam Physical Exam Constitutional: Well developed, well nourished, no acute distress, non-toxic appearance. [] HENT: Normocephalic, atraumatic, bilateral external ears normal, oropharynx moist, no oral exudates, nose normal. [] Eyes: PERRLA, EOMI, conjunctiva normal, no discharge. [] Neck: Normal range of motion, no tenderness, supple, no stridor. [] Cardiovascular:Heart rate regular rhythm, no murmur [] Lungs & Thorax: Bilateral breath sounds clear to auscultation [] Abdomen: Bowel sounds normal, soft, no tenderness, no masses, no pulsatile masses. [] Skin: Warm, dry, no erythema, no rash. [] Back: No tenderness, no CVA tenderness. [] Extremities: No tenderness, no cyanosis, no clubbing, ROM intact, no edema. [] Neurologic: Alert and oriented X 3, normal motor function, normal sensory function, no focal deficits noted. [] Psychologic: Affect normal, judgement normal, mood normal. [] Current Patient Data Vital Signs Vital Signs Date Time Temp Pulse Resp B/P (MAP) Pulse Ox O2 Delivery O2 Flow Rate FiO2 09/23/18 01:35 13 95 Room Air 09/23/18 00:05 98.7 56 168/72 (104) 98.7 Lab Values Laboratory Tests Test 09/23/18 00:55 09/23/18 01:15 Urine Collection Type U cath Urine Color Yellow Urine Clarity Clear Urine pH 6.0 Urine Specific Everett 1.010 Urine Protein Negative mg/dL (NEG-TRACE) Urine Glucose (UA) Negative mg/dL (NEG) Urine Ketones (Stick) Negative mg/dL (NEG) Urine Blood Negative (NEG) Urine Nitrite Negative (NEG) Urine Bilirubin Negative (NEG) Urine Urobilinogen Dipstick 0.2 mg/dL (0.2 mg/dL) Urine Leukocyte Esterase Moderate (NEG) Urine RBC 0 /HPF (0-2) Urine WBC 5-10 /HPF (0-4) Urine Squamous Epithelial Cells Many /LPF Urine Transitional Epithelial Cells Occ /LPF Urine Amorphous Sediment Present /HPF Urine Bacteria Few /HPF (0-FEW) Urine Mucus Slight /LPF White Blood Count 9.8 x10^3/uL (4.0-11.0) Red Blood Count 4.34 x10^6/uL (3.50-5.40) Hemoglobin 12.7 g/dL (12.0-15.5) Hematocrit 38.8 % (36.0-47.0) Mean Corpuscular Volume 89 fL (79-100) Mean Corpuscular Hemoglobin 29 pg (25-35) Mean Corpuscular Hemoglobin Concent 33 g/dL (31-37) Red Cell Distribution Width 13.5 % (11.5-14.5) Platelet Count 195 x10^3/uL (140-400) Neutrophils (%) (Auto) 63 % (31-73) Lymphocytes (%) (Auto) 21 % (24-48) L Monocytes (%) (Auto) 13 % (0-9) H Eosinophils (%) (Auto) 2 % (0-3) Basophils (%) (Auto) 1 % (0-3) Neutrophils # (Auto) 6.2 x10^3uL (1.8-7.7) Lymphocytes # (Auto) 2.1 x10^3/uL (1.0-4.8) Monocytes # (Auto) 1.3 x10^3/uL (0.0-1.1) H Eosinophils # (Auto) 0.2 x10^3/uL (0.0-0.7) Basophils # (Auto) 0.1 x10^3/uL (0.0-0.2) Sodium Level 139 mmol/L (136-145) Potassium Level 3.9 mmol/L (3.5-5.1) Chloride Level 99 mmol/L (98-107) Carbon Dioxide Level 31 mmol/L (21-32) Anion Gap 9 (6-14) Blood Urea Nitrogen 17 mg/dL (7-20) Creatinine 0.9 mg/dL (0.6-1.0) Estimated GFR (Cockcroft-Gault) 61.7 BUN/Creatinine Ratio 19 (6-20) Glucose Level 131 mg/dL (70-99) H Lactic Acid Level 1.4 mmol/L (0.4-2.0) Calcium Level 9.7 mg/dL (8.5-10.1) Magnesium Level 1.2 mg/dL (1.8-2.4) L Total Bilirubin 0.5 mg/dL (0.2-1.0) Aspartate Amino Transferase (AST) 17 U/L (15-37) Alanine Aminotransferase (ALT) 29 U/L (14-59) Alkaline Phosphatase 59 U/L (46-116) Creatine Kinase 117 U/L (26-192) Creatine Kinase MB (Mass) 0.9 ng/mL (0.0-3.6) Creatine Kinase MB Relative Index 0.8 % (0-4) Troponin I Quantitative < 0.017 ng/mL (0.000-0.055) GP-Ppu-K-Type Natriuretic Peptide 253 pg/mL (0-124) H Total Protein 6.8 g/dL (6.4-8.2) Albumin 3.2 g/dL (3.4-5.0) L Albumin/Globulin Ratio 0.9 (1.0-1.7) L Laboratory Tests 09/23/18 01:15 Laboratory Tests 09/23/18 01:15 EKG EKG [] Radiology/Procedures Radiology/Procedures Portable CXR (preliminary interpretation by ED physician): Low lung volumes, possible bilateral pleural effusions vs poor effort Course & Med Decision Making Course & Med Decision Making Pertinent Labs and Imaging studies reviewed. (See chart for details) [] Dragon Disclaimer Dragon Disclaimer This electronic medical record was generated, in whole or in part, using a voice recognition dictation system. Departure Departure Impression: Primary Impression: Chest wall pain Additional Impressions: Erythema Hypomagnesemia History of cardiac pacemaker Disposition: ADMITTED INPATIENT Admitting Physician: Other (Dr. Sexton) Condition: STABLE Referrals: GRANT CANCINO MD (PCP) Problem Qualifiers LOS RON DO Sep 23, 2018 01:25
[2018-09-23] MEDS ORDERED: fentaNYL PF VIAL 100 MCG/2 ML VIAL IV ONE (01:30)
[2018-09-23 01:34] LABS: BASO # 0.1 x10^3/uL (0.0-0.2); BASO % 1 % (0-3); EOS # 0.2 x10^3/uL (0.0-0.7); EOS % 2 % (0-3); HEMATOCRIT 38.8 % (36.0-47.0); HEMOGLOBIN 12.7 g/dL (12.0-15.5); LYMPH # 2.1 x10^3/uL (1.0-4.8); LYMPH % 21 % (24-48); MEAN CORPUSCULAR HEMOGLOBIN 29 pg (25-35); MEAN CORPUSCULAR HGB CONC 33 g/dL (31-37); MEAN CORPUSCULAR VOLUME 89 fL (79-100); MONO # 1.3 x10^3/uL (0.0-1.1); MONO % 13 % (0-9); NEUT # 6.2 x10^3uL (1.8-7.7); NEUT % 63 % (31-73); PLATELET COUNT 195 x10^3/uL (140-400); RED BLOOD COUNT 4.34 x10^6/uL (3.50-5.40); RED CELL DISTRIBUTION WIDTH 13.5 % (11.5-14.5); WHITE BLOOD COUNT 9.8 x10^3/uL (4.0-11.0)
[2018-09-23 01:48] LABS: CALCIUM 9.7 mg/dL (8.5-10.1); CREATININE 0.9 mg/dL (0.6-1.0); GFR 61.7; POTASSIUM 3.9 mmol/L (3.5-5.1)
[2018-09-23 01:54] LABS: ALBUMIN 3.2 g/dL (3.4-5.0); ALBUMIN/GLOBULIN RATIO 0.9 (1.0-1.7); MAGNESIUM 1.2 mg/dL (1.8-2.4); TOTAL BILIRUBIN 0.5 mg/dL (0.2-1.0); TOTAL PROTEIN 6.8 g/dL (6.4-8.2)
[2018-09-23] MEDS ORDERED: ONDANSETRON PF 4 MG/2 ML VIAL. IV PRN ×2 (02:45→11:15)
[2018-09-23] MEDS ORDERED: DEXTROSE 50% 25 GM / 50ML DISP.SYRIN. IV PRN (02:45)
[2018-09-23] MEDS ORDERED: fentaNYL PF VIAL 100 MCG/2 ML VIAL IV PRN (02:45)
[2018-09-23] MEDS ORDERED: MAGNESIUM SULFATE 2GM 50 ML IV ONE ×2 (03:00→12:00)
[2018-09-23] MEDS ORDERED: CLINDAMYCIN 600MG PREMIX 50 ML IV ONE (03:00)
[2018-09-23 03:46] VITALS: BP 130/62
--- NOTE | 2018-09-23 04:42 | NUR ---
Received report from Cecille HO in the emergency department. Patient arrived to unit via bed. No family present during admission and patient claimed that no one is involved with her care. She stated she had a son but he has not visited her since she was in the hospital at [facility], and during her stay the last couple of weeks at [facility]. Patient had one green bag of belongings that were secured in the left side of her closet. Patient reports her pain is a 2 out of 10 and located on her left upper anterior chest wall around the surgical incision site of her pacemaker. Patient has been orientated to the unit with her call light placed in reach. Her bed has been set at the lowest position and locked. Will continue to monitor the patient.
[2018-09-23] MEDS ORDERED: CETI10TA16 PO (05:43)
[2018-09-23] MEDS ORDERED: BISA10SU55 RC (05:43)
[2018-09-23] MEDS ORDERED: SALI44.3 MM (05:43)
[2018-09-23] MEDS ORDERED: BUDE0.5A IH (05:43)
[2018-09-23] MEDS ORDERED: GUAI600T79 PO (05:43)
[2018-09-23] MEDS ORDERED: FLUC100T4 PO (05:43)
[2018-09-23] MEDS ORDERED: BENZ200C47 PO (05:43)
[2018-09-23] MEDS ORDERED: AMMO225L8 TP (05:43)
[2018-09-23] MEDS ORDERED: NYST1POW2 PO (05:43)
[2018-09-23 07:00] VITALS: BP 169/78
[2018-09-23] MEDS: INSULIN LISPRO 300 UNITS/3 ML INSULN.PEN. SQ SCH ×3 (08:00→16:57)
--- NOTE | 2018-09-23 08:06 | RAD ---
Examination: CHEST AP ONLY History: difficulty breathing Comparison/Correlation: 09/06/2018 portable upright chest x-ray exam Findings: Portable upright frontal view chest was obtained. Multiple lead left-sided ICD noted. Heart size is within normal limits. Limited pulmonary inflation is present. Elevation right hemidiaphragm is similar to prior exam. No new pleural effusion. Evaluation of the retrocardiac region is limited due to underpenetrated technique and patient body habitus. Left hemidiaphragm is not delineated as on the prior exam. This may represent underlying atelectasis or effusion. Impression: Retrocardiac left basilar aspect is not well delineated. Left hemidiaphragm is not delineated. Correlate for underlying effusion or atelectasis. Consider lateral view for more complete assessment if indicated. Electronically signed by: Handy Childers MD (09/23/2018 8:01 AM) [facility]
--- NOTE | 2018-09-23 10:52 | PDOC2 ---
CARDIAC CONSULT DATE OF CONSULT Date of Consult DATE: 09/23/18 TIME: 10:43 REASON FOR CONSULT Reason for Consult: Chest wall pain, erythema, recent pacer REFERRING PHYSICIAN Referring Physician: [place] SOURCE Source: Chart review, Patient HISTORY OF PRESENT ILLNESS HISTORY OF PRESENT ILLNESS This is a pleasant 72 yo female admitted for complains of chest pain. Reports that she has been having left chest pain in the last few days. This was around her FRONT DESK CLERK-D site. It hurts when pressed around the region and also when she moves her arm. Reports no fever or chills. The incision appears to be approximated with steristrips and no oozing to site and no erythema except around region with mild pink erythema circumscribed around. No hard lesions around site with no significant induration but tender to touch. She verablized that it feels puffy. No nausea. Reports that her legs have been more swollen as well and no significant SOA with her rehab. She does take lasix and has been seen by lymphedema specialist. PAST MEDICAL HISTORY Past Medical History Cardiovascular: CAD (mild non-obstructive on cath 01/2014), CHF (chronic systolic; LVEF 25% by echo 11/2014), HTN, Hyperlipidemia, MR Pulmonary: COPD, Other (MIRIAM with CPAP) GI: GERD, Other (obesity) Psych: Anxiety Musculoskeletal: Osteoarthritis Rheumatologic: Fibromyalgia Endocrine: Diabetes Dermatology: No pertinent hx PAST SURGICAL HISTORY Past Surgical History FRONT DESK CLERK-D with recent Gen change and RV lead replacement due to fracture on 2018, Appendectomy, Tonsillectomy SOCIAL HISTORY Smoke: No ALCOHOL: none Drugs: None Lives: [facility] CURRENT MEDICATIONS CURRENT MEDICATIONS Current Medications Medications (Trade) Dose Ordered Sig/Rubina Route PRN Reason Start Time Stop Time Status Last Admin Dose Admin Fentanyl Citrate (Fentanyl 2ml Vial) 50 mcg 1X ONCE IV 09/23/18 01:30 09/23/18 01:31 DC 09/23/18 01:35 Magnesium Sulfate 50 ml @ 25 mls/hr 1X ONCE IV 09/23/18 03:00 09/23/18 04:59 DC 09/23/18 06:27 Clindamycin Phosphate 50 ml @ 100 mls/hr 1X ONCE IV 09/23/18 03:00 09/23/18 03:29 DC 09/23/18 03:10 ALLERGIES ALLERGIES: Coded Allergies: YURY Inhibitors (Verified Allergy, Intermediate, 08/01/17) Penicillins (Verified Allergy, Intermediate, 08/01/17) droperidol (Verified Allergy, Intermediate, 08/01/17) nitrofurantoin (Verified Allergy, Intermediate, 08/01/17) ROS Review of System 14 point ROS evaluated with pertinent positives noted per HPI PHYSICAL EXAM General: Alert, Oriented X3, Cooperative, No acute distress HEENT: Atraumatic, Mucous membr. moist/pink Lungs: Other (faint upper wheeze, basilar crackles) Heart: Regular rate, Other (distant heart sounds) Abdomen: Soft, Other (obese) Extremities: Other (chronic lymphedema) Skin: No breakdown, No significant lesion, Other (left chest incision appears to be approximated with steristrips and no oozing to site and no erythema except around region with mild pink erythema circumscribed around) Neuro: Normal speech, Sensation intact Psych/Mental Status: Mental status NL, Mood NL MUSCULOSKELETAL: Osteoarthritic changes both hands VITALS VITALS Vital Signs Date Time Temp Pulse Resp B/P (MAP) Pulse Ox O2 Delivery O2 Flow Rate FiO2 09/23/18 07:00 97.6 82 18 169/78 (108) 98 Nasal Cannula 2.0 97.6 LABS Lab: Laboratory Tests Test 09/23/18 00:55 09/23/18 01:15 09/23/18 07:15 Urine Collection Type U cath Urine Color Yellow Urine Clarity Clear Urine pH 6.0 Urine Specific [place] 1.010 Urine Protein Negative mg/dL (NEG-TRACE) Urine Glucose (UA) Negative mg/dL (NEG) Urine Ketones (Stick) Negative mg/dL (NEG) Urine Blood Negative (NEG) Urine Nitrite Negative (NEG) Urine Bilirubin Negative (NEG) Urine Urobilinogen Dipstick 0.2 mg/dL (0.2 mg/dL) Urine Leukocyte Esterase Moderate (NEG) Urine RBC 0 /HPF (0-2) Urine WBC 5-10 /HPF (0-4) Urine Squamous Epithelial Cells Many /LPF Urine Transitional Epithelial Cells Occ /LPF Urine Amorphous Sediment Present /HPF Urine Bacteria Few /HPF (0-FEW) Urine Mucus Slight /LPF White Blood Count 9.8 x10^3/uL (4.0-11.0) Red Blood Count 4.34 x10^6/uL (3.50-5.40) Hemoglobin 12.7 g/dL (12.0-15.5) Hematocrit 38.8 % (36.0-47.0) Mean Corpuscular Volume 89 fL (79-100) Mean Corpuscular Hemoglobin 29 pg (25-35) Mean Corpuscular Hemoglobin Concent 33 g/dL (31-37) Red Cell Distribution Width 13.5 % (11.5-14.5) Platelet Count 195 x10^3/uL (140-400) Neutrophils (%) (Auto) 63 % (31-73) Lymphocytes (%) (Auto) 21 % (24-48) Monocytes (%) (Auto) 13 % (0-9) Eosinophils (%) (Auto) 2 % (0-3) Basophils (%) (Auto) 1 % (0-3) Neutrophils # (Auto) 6.2 x10^3uL (1.8-7.7) Lymphocytes # (Auto) 2.1 x10^3/uL (1.0-4.8) Monocytes # (Auto) 1.3 x10^3/uL (0.0-1.1) Eosinophils # (Auto) 0.2 x10^3/uL (0.0-0.7) Basophils # (Auto) 0.1 x10^3/uL (0.0-0.2) Sodium Level 139 mmol/L (136-145) Potassium Level 3.9 mmol/L (3.5-5.1) Chloride Level 99 mmol/L (98-107) Carbon Dioxide Level 31 mmol/L (21-32) Anion Gap 9 (6-14) Blood Urea Nitrogen 17 mg/dL (7-20) Creatinine 0.9 mg/dL (0.6-1.0) Estimated GFR (Cockcroft-Gault) 61.7 BUN/Creatinine Ratio 19 (6-20) Glucose Level 131 mg/dL (70-99) Lactic Acid Level 1.4 mmol/L (0.4-2.0) Calcium Level 9.7 mg/dL (8.5-10.1) Magnesium Level 1.2 mg/dL (1.8-2.4) Total Bilirubin 0.5 mg/dL (0.2-1.0) Aspartate Amino Transf (AST/SGOT) 17 U/L (15-37) Alanine Aminotransferase (ALT/SGPT) 29 U/L (14-59) Alkaline Phosphatase 59 U/L (46-116) Creatine Kinase 117 U/L (26-192) Creatine Kinase MB (Mass) 0.9 ng/mL (0.0-3.6) Creatine Kinase MB Relative Index 0.8 % (0-4) Troponin I Quantitative < 0.017 ng/mL (0.000-0.055) TG-Qfv-E-Type Natriuretic Peptide 253 pg/mL (0-124) Total Protein 6.8 g/dL (6.4-8.2) Albumin 3.2 g/dL (3.4-5.0) Albumin/Globulin Ratio 0.9 (1.0-1.7) Glucose (Fingerstick) 131 mg/dL (70-99) ECHOCARDIOGRAM ECHOCARDIOGRAM <Conclusion> Technically difficult study. The left ventricle is normal size. Left ventricle systolic function is moderately impaired. The Ejection Fraction is 35-40%. There is borderline to mild concentric left ventricular hypertrophy. There is a pacemaker/ICD lead in the right ventricle and atrium. There is no significant aortic valvular stenosis. Doppler and Color Flow revealed no significant aortic regurgitation. Doppler and Color Flow revealed trace to mild mitral regurgitation. Doppler and Color Flow revealed trace to mild tricuspid regurgitation. The PA pressure was estimated at 26 mmHg. DATE: 05/28/17 1728 HEART CATH HEART CATH CONCLUSION Successful [employer] biventricular ICD/FRONT DESK CLERK-D right ventricular lead insertion with generator change for device malfunction secondary to right ventricle lead fracture. DATE: 09/05/18 1435 ASSESSMENT/PLAN ASSESSMENT/PLAN 1. Atypical chest pain: noted to with FRONT DESK CLERK-D site.No fever/drain/leukocytosis. Noncardiac. 2. NICM/ acute on chronic systolic CHF: last known EF at 35%. NYHA 2 3. Chronic LE lymphedema: no erythema 4. CAD: nonobstructive CAD [facility] in 2013 5. COPD/MIRIAM with CPAP 6. Morbid obesity 7. DM2/HLP 8. HTN: labile episodes 9. FRONT DESK CLERK-D in situ: [facility]. 09/05/2018 gen change and RV lead replacement due to fractured lead. . Recommendations 1. Continue with secondary prevention 2. Clindamycin has been started per PCP. 3. US to device site and rule out any abscess or hematoma. Possible inflammatory irritation intradermally with mobility. Cold/hot pack a consideration depending on sono findings. 4. TTE and reeval EF and MR. EKG 5. Lasix IV therapy, lymphedema consult. Replace Mg. 6. Restart BB, ASA, statin. Pt is allergic to ACEi. Will add norvasc if BP remains elevated. JEANETTE DANIELSON APRN Sep 23, 2018 10:52
[2018-09-23 11:00] VITALS: BP 152/69
[2018-09-23] MEDS ORDERED: MAGNESIUM HYDROXIDE 2,400 MG/30 ML ORAL.SUSP. PO PRN (11:15)
[2018-09-23] MEDS ORDERED: CALCIUM CARBONATE 500 MG TAB.CHEW PO PRN (11:15)
[2018-09-23] MEDS ORDERED: ZOLPIDEM 5 MG TABLET. PO PRN (11:15)
[2018-09-23] MEDS ORDERED: CETIRIZINE HCL 10 MG TABLET. PO PRN (11:15)
[2018-09-23] MEDS ORDERED: ELECTROLYTE (NON-ICU) PROTOCOL MC PRN (11:15)
[2018-09-23] MEDS ORDERED: BISACODYL 10 MG SUPP.RECT. RC PRN (11:15)
[2018-09-23] MEDS ORDERED: PERFLUTREN PROTEIN-A MICROSPHR 0.22 MG/ML 3 ML VIAL. IV ONE ×2 (11:32→12:00)
[2018-09-23] MEDS ORDERED: FUROSEMIDE 40 MG TABLET. PO SCH (12:00)
[2018-09-23] MEDS: DOCUSATE SODIUM 100 MG CAPSULE. PO SCH ×2 (12:00→21:15)
[2018-09-23] MEDS ORDERED: PERFLUTREN PROTEIN-A MICROSPHR 0.22 MG/ML 3 ML VIAL. IV PRN (12:00)
[2018-09-23] MEDS: ALBUTEROL SULFATE 2.5 MG/3 ML NEBU. NEB SCH ×3 (12:00→20:26)
[2018-09-23] MEDS ORDERED: POTASSIUM CHLORIDE 20 MEQ TABLET.ER. PO SCH (12:00)
[2018-09-23] MEDS: POLYETHYLENE GLYCOL 3350 17 GM PACKET. PO SCH (12:00)
[2018-09-23] MEDS: SENNOSIDES/DOCUSATE 8.6/50MG TABLET. PO SCH ×2 (12:00→21:16)
[2018-09-23] MEDS: CITALOPRAM 20 MG TABLET. PO SCH (12:14)
[2018-09-23] MEDS: OMEGA-3 FATTY ACIDS/FISH OIL 1,000 MG CAPSULE. PO SCH (12:14)
[2018-09-23] MEDS: SPIRONOLACTONE 25 MG TABLET PO SCH ×2 (12:15→21:15)
[2018-09-23] MEDS: LEVOTHYROXINE 50 MCG TABLET PO SCH (12:15)
--- NOTE | 2018-09-23 12:15 | EKG ---
[facility] [address] [place] [address] Test Date: 2018-09-23 Test Time: 12:03:28 Pat Name: JO-ANN MORELAND Department: Room: 428 1 Gender: F Work Study Student: [facility] : 1945 Requested By: JEANETTE DANIELSON Order Number: [id number] Reading MD: Akin Hughes MD Measurements Intervals [place] Rate: 79 P: NM: QRS: -156 QRSD: 164 T: -2 QT: 460 QTc: 529 Interpretive Statements SR V-PACED Electronically Signed On 09-23-2018 12:53:37 MINI BAR ATTENDANT by Akin Hughes MD
[2018-09-23] MEDS: ASPIRIN CHEWABLE 81 MG TABLET. PO SCH (12:16)
[2018-09-23] MEDS: METOPROLOL SUCC 24HR ER 50 MG TAB.ER.24H. PO SCH (12:17)
[2018-09-23] MEDS: EZETIMIBE 10 MG TABLET. PO SCH (12:17)
[2018-09-23] MEDS: FUROSEMIDE 40 MG/4 ML VIAL. IVP SCH (12:21)
--- NOTE | 2018-09-23 12:21 | PDOC1 ---
History and Physical Date of Admission Date of Admission DATE: 09/23/18 TIME: 12:09 Identification/Chief Complaint Chief Complaint chest wall pain, tenderness at pacer site Source Source: Patient History of Present Illness History of Present Illness 72 yo female with chest pain around her KNIT TUBING DYER-D site, tender to palpation, no associated fever or chills. incision site looks clean with steristrips, no erythema,. patient has no other complaints. denies chest pain sob, fever nausea vomiting diarrhea Past Medical History Cardiovascular: CAD, CHF, HTN, Hyperlipidemia Pulmonary: COPD, Other GI: GERD, Other Psych: Anxiety Musculoskeletal: Osteoarthritis Rheumatologic: Fibromyalgia Endocrine: Diabetes Past Surgical History Past Surgical History: Appendectomy, Tonsillectomy Family History Family History: Family History Unknown Social History Smoke: No ALCOHOL: none Drugs: None Current Problem List Problem List Problems Medical Problems: (1) History of cardiac pacemaker Status: Acute Current Medications Current Medications Current Medications Fentanyl Citrate (Fentanyl 2ml Vial) 50 mcg 1X ONCE IV Last administered on 09/23/18at 01:35; Start 09/23/18 at 01:30; Stop 09/23/18 at 01:31; Status DC Magnesium Sulfate 50 ml @ 25 mls/hr 1X ONCE IV Last administered on 09/23/18at 06:27; Start 09/23/18 at 03:00; Stop 09/23/18 at 04:59; Status DC Ondansetron HCl (Zofran) 4 mg PRN Q8HRS PRN IV NAUSEA/VOMITING 1ST CHOICE; Start 09/23/18 at 02:45; Stop 09/24/18 at 02:44 Fentanyl Citrate (Fentanyl 2ml Vial) 25 mcg PRN Q2HRS PRN IV SEVERE PAIN; Start 09/23/18 at 02:45 Insulin Human Lispro (HumaLOG) 0-5 UNITS TIDWMEALS SQ ; Start 09/23/18 at 08:00 Dextrose (Dextrose 50%-Water Syringe) 12.5 gm PRN Q15MIN PRN IV SEE COMMENTS; Start 09/23/18 at 02:45 Clindamycin Phosphate 50 ml @ 100 mls/hr 1X ONCE IV Last administered on at 03:10; Start 09/23/18 at 03:00; Stop 09/23/18 at 03:29; Status DC Aspirin (Children'S Aspirin) 81 mg DAILY PO ; Start 09/23/18 at 12:00 Bisacodyl (Dulcolax Supp) 10 mg PRN DAILY PRN RC CONSTIPATION; Start 09/23/18 at 11:15 Budesonide (Pulmicort) 0.5 mg RTBID NEB ; Start 09/23/18 at 12:00 Cetirizine HCl (ZyrTEC) 10 mg PRN DAILY PRN PO ALLERGIES; Start 09/23/18 at 11: 15 Docusate Sodium (Colace) 100 mg BID PO ; Start 09/23/18 at 12:00 EZETIMIBE (Zetia) 10 mg DAILY PO ; Start 09/23/18 at 12:00 Furosemide (Lasix) 40 mg DAILY PO ; Start 09/23/18 at 12:00 Guaifenesin (Mucinex) 600 mg PRN BID PRN PO COUGH; Start 09/23/18 at 11:15 Lorazepam (Ativan) 1 mg TID PO ; Start 09/23/18 at 14:00 Metoprolol Succinate (Toprol Xl) 50 mg DAILY PO ; Start 09/23/18 at 12:00 Benzonatate (Tessalon Perle) 100 mg PRN TID PRN PO COUGH 2ND CHOICE; Start 09/23 at 14:00 Citalopram Hydrobromide (CeleXA) 40 mg DAILY PO ; Start 09/23/18 at 12:00 Non-Formulary Medication (Fluticasone/ Salmeterol (Advair 250-50 Diskus)) 1 puff BID IH ; Start 09/23/18 at 21:00; Status UNV Insulin Glargine (Lantus) 40 units BID SQ ; Start 09/23/18 at 12:00 Levothyroxine Sodium (Synthroid) 50 mcg DAILY06 PO ; Start 09/23/18 at 12:00 Fish Oil (Fish Oil) 1,000 mg DAILY PO ; Start 09/23/18 at 12:00 Polyethylene Glycol (miraLAX PACKET) 17 gm DAILY PO ; Start 09/23/18 at 12:00 Potassium Chloride (Klor-Con) 20 meq DAILYWBKFT PO ; Start 09/23/18 at 12:00 Simvastatin (Zocor) 40 mg QHS PO ; Start 09/23/18 at 21:00 Spironolactone (Aldactone) 25 mg BID PO ; Start 09/23/18 at 12:00 Ondansetron HCl (Zofran) 4 mg PRN Q6HRS PRN IV NAUSEA/VOMITING; Start 09/23/18 at 11:15 Calcium Carbonate/ Glycine (Tums) 500 mg PRN Q3HRS PRN PO UPSET STOMACH; Start 09/23/18 at 11:15 Zolpidem Tartrate (Ambien) 5 mg PRN QHS PRN PO INSOMNIA, MAY REPEAT IN 1HR; Start 09/23/18 at 11:15 Info (Non-Icu Electrolyte Protocol) 1 ea PRN DAILY PRN MC SEE COMMENTS; Start 09/23/18 at 11:15 Senna/Docusate Sodium (Senna Plus) 1 tab BID PO ; Start 09/23/18 at 12:00 Magnesium Hydroxide (Milk Of Magnesia) 2,400 mg PRN Q12HR PRN PO CONSTIPATION; Start 09/23/18 at 11:15 Heparin Sodium (Porcine) (Heparin Sodium) 5,000 unit Q8HRS SQ ; Start 09/23/18 at 14:00 Clindamycin Phosphate 50 ml @ 100 mls/hr Q8HRS IV ; Start 09/23/18 at 14:00 Furosemide (Lasix) 40 mg DAILY IVP ; Start 09/23/18 at 12:00 Magnesium Sulfate 50 ml @ 25 mls/hr 1X ONCE IV ; Start 09/23/18 at 12:00; Stop 09/23/18 at 13:59 Albuterol Sulfate (Ventolin Neb Soln) 2.5 mg RTQID NEB ; Start 09/23/18 at 12:00 Perflutren Protein Type A Microsphe (Optison) 0.66 mg STK-MED ONCE IV ; Start at 11:32; Stop 09/23/18 at 11:34; Status DC Perflutren Protein Type A Microsphe (Optison) 0.66 mg PRN 1X PRN IV SEE COMMENTS; Start 09/23/18 at 12:00; Stop 09/24/18 at 11:59 Active Scripts Active Reported Nystatin 1 Each Powder.ea. 1 Each PO BID PRN Guaifenesin 600 Mg Tablet.er 600 Mg PO BID PRN Fluconazole 100 Mg Tablet 1 Tab PO DAILY PRN Dulcolax (Bisacodyl) 10 Mg Supp.rect 10 Mg RC PRN DAILY PRN Cetirizine Hcl 10 Mg Tablet 1 Tab PO DAILY PRN Budesonide 0.5 Mg/2 Ml Ampul.neb 0.5 Mg IH BID Biotene Moisturizing Mouth (Saliva Stimulant Agents Comb.3) 44.3 Ml [place] 15 Ml MM BID PRN Benzonatate 200 Mg Capsule 1 Cap PO TID PRN Skin Treatment (Ammonium Lactate) 225 Gm Lotion 12 % TP DAILY PRN Metoprolol Succinate ( Xl ) (Metoprolol Succinate) 25 Mg Tab.er.24h 50 Mg PO DAILY Vitamin C (Ascorbic Acid) 500 Mg Tablet 500 Mg PO Vitamin D3 (Cholecalciferol (Vitamin D3)) 1,000 Unit Tablet 1,000 Unit PO Lorazepam 1 Mg Tablet 1 Mg PO TID Zetia (Ezetimibe) 10 Mg Tablet 10 Mg PO DAILY Simvastatin 40 Mg Tablet 40 Mg PO HS Potassium Chloride Packet (Potassium Chloride) 20 Meq Packet 20 Meq PO DAILY Miralax (Polyethylene Glycol 3350) 17 Gm Powd.pack 1 Pkt PO DAILY Loratadine 5 Mg/5 Ml Solution 10 Mg PO DAILY Levothyroxine Sodium 50 Mcg Tablet 50 Mcg PO DAILYAC Levemir (Insulin Detemir) 100 Unit/1 Ml Vial 40 Unit SQ BID Hydrocodone-Apap 5-325 (Hydrocodone Bit/Acetaminophen) 1 Each Tablet 1 Tab PO PRN Q6HRS PRN Fish Oil Ec 1,200 Mg Softgel ([place]-3S/Dha/Epa/Fish Oil) 1 Each Capsule.dr 1 Each PO DAILY Docusate Sodium 100 Mg Capsule 100 Mg PO BID Metformin Hcl Er (Metformin Hcl) 500 Mg Tab.er.24h 1 Tab PO BID Advair 250-50 Diskus (Fluticasone/Salmeterol) 1 Each Disk.w.dev 1 Puff IH BID Proair Hfa Inhaler (Albuterol Sulfate) 8.5 Gm Hfa.aer.ad 2 Puff IH PRN Q4-6HRS Aspirin 81 Mg Tab.chew 81 Mg PO Citalopram Hbr (Citalopram Hydrobromide) 40 Mg Tablet 40 Mg PO DAILY Furosemide 40 Mg Tablet 40 Mg PO DAILY Spironolactone 25 Mg Tablet 25 Mg PO BID Allergies Allergies: Coded Allergies: YURY Inhibitors (Verified Allergy, Intermediate, 08/01/17) Penicillins (Verified Allergy, Intermediate, 08/01/17) droperidol (Verified Allergy, Intermediate, 08/01/17) nitrofurantoin (Verified Allergy, Intermediate, 08/01/17) ROS Review of System CONSTITUTIONAL: No fever or chills EYES: No recent changes SKIN: No rash or itching CARDIOVASCULAR: No chest pain, syncope, palpitations, or edema RESPIRATORY: No SOB or cough GASTROINTESTINAL: No nausea, vomiting or abdominal pain NEUROLOGICAL: No headaches or weakness ENDOCRINE: No cold or heat intolerance GENITOURINARY: No urgency or frequency of urination MUSCULOSKELETAL: No back pain or joint pain LYMPHATICS: No enlarged lymph nodes PSYCHIATRIC: No anxiety or depression Physical Exam Physical Exam GENERAL: No apparent distress. Alert and oriented. HEENT: Head normocephalic, atraumatic. NECK: Supple LUNGS: Clear to auscultation. HEART: RRR, S1, S2 present, pulses intact, PP in place with steristrips. no erythema or tenderness noted ABDOMEN: Soft, positive bowel sounds. EXTREMITIES: No cyanosis or edema. NEUROLOGIC: Normal speech, normal tone PSYCHIATRIC: Normal affect, normal mood. SKIN: No ulceration. Vitals Vitals Vital Signs Date Time Temp Pulse Resp B/P (MAP) Pulse Ox O2 Delivery O2 Flow Rate FiO2 09/23/18 11:00 97.7 77 16 152/69 (96) 92 Nasal Cannula 2.0 97.7 Labs Labs Laboratory Tests Test 09/23/18 00:55 09/23/18 01:15 09/23/18 07:15 Urine Collection Type U cath Urine Color Yellow Urine Clarity Clear Urine pH 6.0 Urine Specific [place] 1.010 Urine Protein Negative mg/dL (NEG-TRACE) Urine Glucose (UA) Negative mg/dL (NEG) Urine Ketones (Stick) Negative mg/dL (NEG) Urine Blood Negative (NEG) Urine Nitrite Negative (NEG) Urine Bilirubin Negative (NEG) Urine Urobilinogen Dipstick 0.2 mg/dL (0.2 mg/dL) Urine Leukocyte Esterase Moderate (NEG) Urine RBC 0 /HPF (0-2) Urine WBC 5-10 /HPF (0-4) Urine Squamous Epithelial Cells Many /LPF Urine Transitional Epithelial Cells Occ /LPF Urine Amorphous Sediment Present /HPF Urine Bacteria Few /HPF (0-FEW) Urine Mucus Slight /LPF White Blood Count 9.8 x10^3/uL (4.0-11.0) Red Blood Count 4.34 x10^6/uL (3.50-5.40) Hemoglobin 12.7 g/dL (12.0-15.5) Hematocrit 38.8 % (36.0-47.0) Mean Corpuscular Volume 89 fL (79-100) Mean Corpuscular Hemoglobin 29 pg (25-35) Mean Corpuscular Hemoglobin Concent 33 g/dL (31-37) Red Cell Distribution Width 13.5 % (11.5-14.5) Platelet Count 195 x10^3/uL (140-400) Neutrophils (%) (Auto) 63 % (31-73) Lymphocytes (%) (Auto) 21 % (24-48) Monocytes (%) (Auto) 13 % (0-9) Eosinophils (%) (Auto) 2 % (0-3) Basophils (%) (Auto) 1 % (0-3) Neutrophils # (Auto) 6.2 x10^3uL (1.8-7.7) Lymphocytes # (Auto) 2.1 x10^3/uL (1.0-4.8) Monocytes # (Auto) 1.3 x10^3/uL (0.0-1.1) Eosinophils # (Auto) 0.2 x10^3/uL (0.0-0.7) Basophils # (Auto) 0.1 x10^3/uL (0.0-0.2) Sodium Level 139 mmol/L (136-145) Potassium Level 3.9 mmol/L (3.5-5.1) Chloride Level 99 mmol/L (98-107) Carbon Dioxide Level 31 mmol/L (21-32) Anion Gap 9 (6-14) Blood Urea Nitrogen 17 mg/dL (7-20) Creatinine 0.9 mg/dL (0.6-1.0) Estimated GFR (Cockcroft-Gault) 61.7 BUN/Creatinine Ratio 19 (6-20) Glucose Level 131 mg/dL (70-99) Lactic Acid Level 1.4 mmol/L (0.4-2.0) Calcium Level 9.7 mg/dL (8.5-10.1) Magnesium Level 1.2 mg/dL (1.8-2.4) Total Bilirubin 0.5 mg/dL (0.2-1.0) Aspartate Amino Transf (AST/SGOT) 17 U/L (15-37) Alanine Aminotransferase (ALT/SGPT) 29 U/L (14-59) Alkaline Phosphatase 59 U/L (46-116) Creatine Kinase 117 U/L (26-192) Creatine Kinase MB (Mass) 0.9 ng/mL (0.0-3.6) Creatine Kinase MB Relative Index 0.8 % (0-4) Troponin I Quantitative < 0.017 ng/mL (0.000-0.055) YS-Wjg-U-Type Natriuretic Peptide 253 pg/mL (0-124) Total Protein 6.8 g/dL (6.4-8.2) Albumin 3.2 g/dL (3.4-5.0) Albumin/Globulin Ratio 0.9 (1.0-1.7) Glucose (Fingerstick) 131 mg/dL (70-99) Laboratory Tests Test 09/23/18 00:55 09/23/18 01:15 09/23/18 07:15 Urine Collection Type U cath Urine Color Yellow Urine Clarity Clear Urine pH 6.0 Urine Specific [place] 1.010 Urine Protein Negative mg/dL (NEG-TRACE) Urine Glucose (UA) Negative mg/dL (NEG) Urine Ketones (Stick) Negative mg/dL (NEG) Urine Blood Negative (NEG) Urine Nitrite Negative (NEG) Urine Bilirubin Negative (NEG) Urine Urobilinogen Dipstick 0.2 mg/dL (0.2 mg/dL) Urine Leukocyte Esterase Moderate (NEG) Urine RBC 0 /HPF (0-2) Urine WBC 5-10 /HPF (0-4) Urine Squamous Epithelial Cells Many /LPF Urine Transitional Epithelial Cells Occ /LPF Urine Amorphous Sediment Present /HPF Urine Bacteria Few /HPF (0-FEW) Urine Mucus Slight /LPF White Blood Count 9.8 x10^3/uL (4.0-11.0) Red Blood Count 4.34 x10^6/uL (3.50-5.40) Hemoglobin 12.7 g/dL (12.0-15.5) Hematocrit 38.8 % (36.0-47.0) Mean Corpuscular Volume 89 fL (79-100) Mean Corpuscular Hemoglobin 29 pg (25-35) Mean Corpuscular Hemoglobin Concent 33 g/dL (31-37) Red Cell Distribution Width 13.5 % (11.5-14.5) Platelet Count 195 x10^3/uL (140-400) Neutrophils (%) (Auto) 63 % (31-73) Lymphocytes (%) (Auto) 21 % (24-48) Monocytes (%) (Auto) 13 % (0-9) Eosinophils (%) (Auto) 2 % (0-3) Basophils (%) (Auto) 1 % (0-3) Neutrophils # (Auto) 6.2 x10^3uL (1.8-7.7) Lymphocytes # (Auto) 2.1 x10^3/uL (1.0-4.8) Monocytes # (Auto) 1.3 x10^3/uL (0.0-1.1) Eosinophils # (Auto) 0.2 x10^3/uL (0.0-0.7) Basophils # (Auto) 0.1 x10^3/uL (0.0-0.2) Sodium Level 139 mmol/L (136-145) Potassium Level 3.9 mmol/L (3.5-5.1) Chloride Level 99 mmol/L (98-107) Carbon Dioxide Level 31 mmol/L (21-32) Anion Gap 9 (6-14) Blood Urea Nitrogen 17 mg/dL (7-20) Creatinine 0.9 mg/dL (0.6-1.0) Estimated GFR (Cockcroft-Gault) 61.7 BUN/Creatinine Ratio 19 (6-20) Glucose Level 131 mg/dL (70-99) Lactic Acid Level 1.4 mmol/L (0.4-2.0) Calcium Level 9.7 mg/dL (8.5-10.1) Magnesium Level 1.2 mg/dL (1.8-2.4) Total Bilirubin 0.5 mg/dL (0.2-1.0) Aspartate Amino Transf (AST/SGOT) 17 U/L (15-37) Alanine Aminotransferase (ALT/SGPT) 29 U/L (14-59) Alkaline Phosphatase 59 U/L (46-116) Creatine Kinase 117 U/L (26-192) Creatine Kinase MB (Mass) 0.9 ng/mL (0.0-3.6) Creatine Kinase MB Relative Index 0.8 % (0-4) Troponin I Quantitative < 0.017 ng/mL (0.000-0.055) EO-Rpj-D-Type Natriuretic Peptide 253 pg/mL (0-124) Total Protein 6.8 g/dL (6.4-8.2) Albumin 3.2 g/dL (3.4-5.0) Albumin/Globulin Ratio 0.9 (1.0-1.7) Glucose (Fingerstick) 131 mg/dL (70-99) VTE Prophylaxis Ordered VTE Prophylaxis Devices: Yes VTE Pharmacological Prophylaxi: Yes Assessment/Plan Assessment/Plan A/P 1. Non-cardiac chest pain: 2. NICM, not in exacerbation 3 LE edema 4 COPD/MIRIAM with CPAP 5. DM2 5. HTN: 9. Hx of KNIT TUBING DYER-D. cards following Plan: suspect chest pain related to KNIT TUBING DYER-D site. does not appear infected. will cover with clinda for now. check US recheck TTE IV lasix for edema continue home cardiac meds including statin, asa, BB continue home insulin therapy med rec completed SUSHIL GRANADO MD Sep 23, 2018 12:21
[2018-09-23] MEDS: INSULIN GLARGINE 300 UNITS/3 ML INSULN.PEN. SQ SCH ×2 (12:25→21:27)
--- NOTE | 2018-09-23 12:57 | NUR ---
RAMÍREZ following for discharge planning. Discussed with RN. RAMÍREZ contacted Margarita at [facility] to determine if pt was still there for SNU. Margarita confirmed pt would have been discharging from [facility] this weekend due to reaching copay days. Pt has 5 more SNU days covered at 100% under insurance before pt would have to pay $167.50 a day. Insurance will need to approve for pt to return to SNU. RN notified. RAMÍREZ will continue to follow.
[2018-09-23] MEDS ORDERED: BENZONATATE 100 MG CAPSULE. PO PRN (14:00)
--- NOTE | 2018-09-23 14:47 | RAD ---
Examination: US CHEST History: swelling/redness at icd site/recent icd implant Comparison/Correlation: None Findings: Limited ultrasound imaging of the left upper chest was performed at the site of the patient's known AICD. Superficial to the AICD within the chest, there is a mildly complex fluid collection measuring 5 cm x 5 cm x 0.9 cm thickness. Fluid is noted to extend along the undersurface of the AICD at one of its margins. Impression: Mildly complex fluid collection superficial to the ICD which also extends along the undersurface of the device. Infectious involvement is not excluded on basis of this exam. Electronically signed by: Handy Childers MD (09/23/2018 2:43 PM) [facility]
[2018-09-23] MEDS: BUDESONIDE 0.5 MG/2 ML NEBU. NEB SCH ×2 (14:51→20:26)
[2018-09-23 15:16] VITALS: BP 146/68
[2018-09-23] MEDS: LORazepam 1 MG TABLET PO SCH ×2 (15:16→21:15)
[2018-09-23] MEDS: CLINDAMYCIN 600MG PREMIX 50 ML IV SCH ×2 (15:16→21:19)
[2018-09-23] MEDS: HEPARIN for SUB-Q USE 5,000 UNIT/ML VIAL. SQ SCH ×2 (15:22→22:02)
--- NOTE | 2018-09-23 16:23 | CARD ---
MR#: [id number] Date of Study: 09/23/2018 Ordering Physician: JEANETTE DANIELSON, Referring Physician: ANGELA ROCHE, Tech: Claudette Clements APPROVED REPORT EXAM: Two-dimensional and M-mode echocardiogram with Doppler and color Doppler. Other Information Quality : FairHR: [id number] Technically limited study due to body habitus and COPD INDICATION Congestive Heart Failure Echo Enhancing Agent Indication: Endocardial border delineation Agent/Amount Used: Optison 8mL Surgery/Intervention Pacemaker: RISK FACTORS Hypertension Hyperlipidemia Diabetes 2D DIMENSIONS RVDd4.6 (2.9-3.5cm)Left Atrium(2D)4.8 (1.6-4.0cm) IVSd3.6 (0.7-1.1cm)Aortic Root(2D)3.1 (2.0-3.7cm) LVDd2.9 (3.9-5.9cm)LVOT Diameter2.3 (1.8-2.4cm) PWd1.1 (0.7-1.1cm)LVDs3.7 (2.5-4.0cm) Aortic Valve AoV Peak Amador.150.8cm/sAoV VTI29.9cm AO Peak GR.9.1mmHgLVOT VTI 16.79cm AO Mean GR.6mmHg Mitral Valve MV E Lhvdknqk771.0cm/sMV DECEL QLYB642sc MV A Vxwajwuu208.0cm/sE/A Ratio1.2 TDI Lateral E' P. V7.98cm/sMedial E' P. V8.37cm/s E/Lateral E'15.5E/Medial E'14.8 Tricuspid Valve TR P. Cziqhwtj622vh/sRAP KGQTHOXL8lvMi TR Peak Gr.86qxRjDIVM17phGl Pulmonary Vein S1 Lbefxhbg84.0cm/sS2 Nvaywpkn52.19cm/s D2 Qsyexcop77.2cm/s LEFT VENTRICLE The left ventricle is normal size. There is mild to moderate concentric left ventricular hypertrophy. The left ventricular systolic function is mildly reduced. EF 45-50%. Technically very difficult stud y. Wall motion not well visualized despite contrast use. Grossly normal wall motion. Transmitral Dopp ler flow pattern is Grade II-pseudonormal filling dynamics. RIGHT VENTRICLE The right ventricle is borderline dilated. There is normal right ventricular wall thickness. The righ t ventricular systolic function is normal. There is a pacemaker lead in the right ventricle. ATRIA Not well visualized. AORTIC VALVE The aortic valve is not well visualized. Doppler and Color Flow revealed no significant aortic regurg itation. There is no significant aortic valvular stenosis. MITRAL VALVE The mitral valve is calcified. There is no evidence of mitral valve prolapse. There is no mitral valv e stenosis. Doppler and Color-flow revealed trace mitral regurgitation. TRICUSPID VALVE The tricuspid valve is not well visualized. Doppler and Color Flow revealed trace tricuspid regurgita tion. There is no tricuspid valve stenosis. PULMONIC VALVE The pulmonic valve is not well visualized. Doppler and Color Flow revealed no pulmonic valvular regur gitation. GREAT VESSELS The aortic root is normal in size. The IVC was not visualized. PERICARDIAL EFFUSION There is no evidence of significant pericardial effusion. Critical Notification Critical Value: No <Conclusion> The left ventricular systolic function is mildly reduced. EF 40-45%. Technically very difficult study . Wall motion not well visualized despite contrast use. Grossly normal wall motion. There is a pacemaker lead in the right ventricle. Signed by : Akin Hughes, Electronically Approved : 09/23/2018 16:21:01
[2018-09-23] MEDS: POTASSIUM CHLORIDE 20 MEQ/15 ML ORAL LIQUID. PO SCH (16:58)
[2018-09-23 19:00] VITALS: BP 157/74
[2018-09-23] MEDS ORDERED: NON FORMULARY ITEM (Fluticasone/Salmeterol (Advair 250-50 Diskus) 1 PUFF) IH SCH (21:00)
[2018-09-23] MEDS: SIMVASTATIN 40 MG TABLET. PO SCH (21:15)
[2018-09-23] MEDS: LACTOBACILLUS RHAMNOSUS GG 1 CAPSULE. PO SCH (21:15)
[2018-09-23 23:00] VITALS: BP 134/62
[2018-09-24 03:00] VITALS: BP 154/72
[2018-09-24] MEDS: HEPARIN for SUB-Q USE 5,000 UNIT/ML VIAL. SQ SCH ×3 (06:00→21:21)
[2018-09-24] MEDS: LEVOTHYROXINE 50 MCG TABLET PO SCH (06:27)
[2018-09-24] MEDS: CLINDAMYCIN 600MG PREMIX 50 ML IV SCH (06:27)
[2018-09-24 07:00] VITALS: BP 123/69
[2018-09-24] MEDS: BUDESONIDE 0.5 MG/2 ML NEBU. NEB SCH ×2 (07:02→19:50)
[2018-09-24] MEDS: ALBUTEROL SULFATE 2.5 MG/3 ML NEBU. NEB SCH ×4 (07:02→19:50)
[2018-09-24 08:05] LABS: BASO # 0.1 x10^3/uL (0.0-0.2); BASO % 1 % (0-3); EOS # 0.2 x10^3/uL (0.0-0.7); EOS % 3 % (0-3); HEMATOCRIT 37.2 % (36.0-47.0); HEMOGLOBIN 12.5 g/dL (12.0-15.5); LYMPH # 1.6 x10^3/uL (1.0-4.8); LYMPH % 22 % (24-48); MEAN CORPUSCULAR HEMOGLOBIN 30 pg (25-35); MEAN CORPUSCULAR HGB CONC 34 g/dL (31-37); MEAN CORPUSCULAR VOLUME 89 fL (79-100); MONO # 0.9 x10^3/uL (0.0-1.1); MONO % 13 % (0-9); NEUT # 4.3 x10^3uL (1.8-7.7); NEUT % 61 % (31-73); PLATELET COUNT 195 x10^3/uL (140-400); RED BLOOD COUNT 4.19 x10^6/uL (3.50-5.40); RED CELL DISTRIBUTION WIDTH 13.5 % (11.5-14.5); WHITE BLOOD COUNT 6.9 x10^3/uL (4.0-11.0)
[2018-09-24 08:08] LABS: CREATININE 0.8 mg/dL (0.6-1.0); GFR 70.7; POTASSIUM 3.9 mmol/L (3.5-5.1)
[2018-09-24] MEDS: POLYETHYLENE GLYCOL 3350 17 GM PACKET. PO SCH ×2 (09:00→09:02)
[2018-09-24] MEDS: OMEGA-3 FATTY ACIDS/FISH OIL 1,000 MG CAPSULE. PO SCH (09:01)
[2018-09-24] MEDS: METOPROLOL SUCC 24HR ER 50 MG TAB.ER.24H. PO SCH (09:01)
[2018-09-24] MEDS: SPIRONOLACTONE 25 MG TABLET PO SCH ×2 (09:01→21:17)
[2018-09-24] MEDS: LORazepam 1 MG TABLET PO SCH ×3 (09:01→21:18)
[2018-09-24] MEDS: SENNOSIDES/DOCUSATE 8.6/50MG TABLET. PO SCH ×2 (09:01→21:17)
[2018-09-24] MEDS: EZETIMIBE 10 MG TABLET. PO SCH (09:01)
[2018-09-24] MEDS: DOCUSATE SODIUM 100 MG CAPSULE. PO SCH ×2 (09:01→21:17)
[2018-09-24] MEDS: LACTOBACILLUS RHAMNOSUS GG 1 CAPSULE. PO SCH ×2 (09:01→21:17)
[2018-09-24] MEDS: ASPIRIN CHEWABLE 81 MG TABLET. PO SCH (09:02)
[2018-09-24] MEDS: POTASSIUM CHLORIDE 20 MEQ/15 ML ORAL LIQUID. PO SCH (09:02)
[2018-09-24] MEDS: CITALOPRAM 20 MG TABLET. PO SCH (09:02)
[2018-09-24] MEDS: INSULIN GLARGINE 300 UNITS/3 ML INSULN.PEN. SQ SCH ×2 (09:07→21:22)
[2018-09-24] MEDS: INSULIN LISPRO 300 UNITS/3 ML INSULN.PEN. SQ SCH ×3 (09:08→17:00)
--- NOTE | 2018-09-24 09:30 | NUR ---
This nurse attempted to call patient's son Carlos, at [phone], left a message for a return call. This nurse will continue to monitor.
--- NOTE | 2018-09-24 10:35 | PDOC ---
Infectious Disease Note Vital Sign Vital Signs Vital Signs Date Time Temp Pulse Resp B/P (MAP) Pulse Ox O2 Delivery O2 Flow Rate FiO2 09/24/18 09:01 73 123/69 09/24/18 07:03 91 BiPAP/CPAP 2.0 09/24/18 07:00 98.5 18 98.5 Labs Lab Laboratory Tests Test 09/23/18 11:46 09/23/18 16:47 09/23/18 21:14 09/24/18 07:40 Glucose (Fingerstick) 182 mg/dL (70-99) 206 mg/dL (70-99) 195 mg/dL (70-99) White Blood Count 6.9 x10^3/uL (4.0-11.0) Red Blood Count 4.19 x10^6/uL (3.50-5.40) Hemoglobin 12.5 g/dL (12.0-15.5) Hematocrit 37.2 % (36.0-47.0) Mean Corpuscular Volume 89 fL (79-100) Mean Corpuscular Hemoglobin 30 pg (25-35) Mean Corpuscular Hemoglobin Concent 34 g/dL (31-37) Red Cell Distribution Width 13.5 % (11.5-14.5) Platelet Count 195 x10^3/uL (140-400) Neutrophils (%) (Auto) 61 % (31-73) Lymphocytes (%) (Auto) 22 % (24-48) Monocytes (%) (Auto) 13 % (0-9) Eosinophils (%) (Auto) 3 % (0-3) Basophils (%) (Auto) 1 % (0-3) Neutrophils # (Auto) 4.3 x10^3uL (1.8-7.7) Lymphocytes # (Auto) 1.6 x10^3/uL (1.0-4.8) Monocytes # (Auto) 0.9 x10^3/uL (0.0-1.1) Eosinophils # (Auto) 0.2 x10^3/uL (0.0-0.7) Basophils # (Auto) 0.1 x10^3/uL (0.0-0.2) Sodium Level 139 mmol/L (136-145) Potassium Level 3.9 mmol/L (3.5-5.1) Chloride Level 99 mmol/L (98-107) Carbon Dioxide Level 31 mmol/L (21-32) Anion Gap 9 (6-14) Blood Urea Nitrogen 14 mg/dL (7-20) Creatinine 0.8 mg/dL (0.6-1.0) Estimated GFR (Cockcroft-Gault) 70.7 Glucose Level 159 mg/dL (70-99) Calcium Level 9.0 mg/dL (8.5-10.1) Magnesium Level 1.8 mg/dL (1.8-2.4) Test 09/24/18 07:44 Glucose (Fingerstick) 196 mg/dL (70-99) Micro Microbiology 09/23/18 Blood Culture - Preliminary, Resulted NO GROWTH AFTER 1 DAY Objective Assessment Pacemaker site swelling, redness and pain, rule out infection/hematoma DM HTN CAD Plan Plan of Care d/w Dr Briseno, aspiration of fluid for culture and cell count bc neg so far d/c clindamycin vanc and cefepime KUSUM EL MD Sep 24, 2018 10:35
[2018-09-24 11:00] VITALS: BP 144/70
[2018-09-24] MEDS: VANCOMYCIN PER PHARMACY MC PRN (11:03)
[2018-09-24] MEDS: FUROSEMIDE 40 MG/4 ML VIAL. IVP SCH (12:13)
[2018-09-24] MEDS: VANCOMYCIN 2 GM in IV NORMAL SALINE 500ML BAG 500 ML IV SCH (12:14)
[2018-09-24] MEDS: CEFEPIME HCL IV Push 2 GM VIAL. IVP SCH ×2 (12:15→21:17)
[2018-09-24] MEDS: HYDROcodone/APAP 5/325MG 1 TAB TABLET PO PRN ×2 (12:48→21:18)
--- NOTE | 2018-09-24 13:05 | NUR ---
Pharmacy Vancomycin Dosing Note S:Consulted to monitor and dose vancomycin started 09/24/18. O:JO-ANN MORELAND is a 72 year old F with HCAP . Height: 5 feet, 3 inches Weight: 138.418388 kg Simms Body Weight: 52.40 Adjusted Body Weight: 87.04 Dosing Weight: Actual Other Antibiotics: CEFEPIME LABS: Last BUN: 14 Last Creatinine: 0.8 Creatinine Clearance: 70 mL/min Last WBC: 6.9 Last Procalcitonin: Tmax (past 24 hours): 99.5 Microbiology: BC NG1D I/O: 950/950 Drug Levels: Last level: on at Last dose given 09/24/18 at 1200 Vancomycin Dosing: Loading Dose: 2000 mg x1 Dosing Weight: Actual Target Trough: 15-20 A: Based on: WEIGHT AND RENAL FUNCTION, 2GM VANCOMYCIN IVBOLUS GIVEN. P: 1. Begin Vancomycin 2000 mg IV q12h TONIGHT 2. Follow up Trough level on 09/25/18 at 2330 3. Pharmacy will continue to monitor, follow and adjust therapy as needed. HILARIO ALVARADO [facility] [place], 09/24/18 [id number]
--- NOTE | 2018-09-24 13:45 | NUR ---
SW attempted to call son as well at [phone] with no answer, this nurse will continue to monitor.
--- NOTE | 2018-09-24 13:51 | NUR ---
This nurse called Arley Diaz for a special chair for this patient, conf. # [phone] received. This nurse will continue to monitor.
--- NOTE | 2018-09-24 14:24 | NUR ---
This nurse called [facility] [phone] to attempt to find another number to contact patient's family. Patient is concerned about cat at home, wanted to let family know about being in hospital, and to check on cat. Patient verified ok to access phone and gave code of [phone] to get Linda MCLEAN number from cell phone at [facility]. This nurse will continue to monitor.
[2018-09-24 15:00] VITALS: BP 146/76
--- NOTE | 2018-09-24 15:39 | PDOC ---
PROGRESS NOTES Chief Complaint Chief Complaint no acute issues overnight. pacer site swelling History of Present Illness History of Present Illness Assessment Pacemaker site swelling concern for infection Non-cardiac chest pain NICM, not in exacerbation LE edema COPD/MIRIAM with CPAP DM2 HTN: Hx of [employer]-D. cards following Plan: suspect chest pain related to [employer]-D site. does not appear infected. will cover with clinda for now. check US rechecking TTE IV lasix for edema continue home cardiac meds including statin, asa, BB continue home insulin therapy aspiration of fluid for culture and cell count bc neg so far d/c clindamycin on 09/24, changed to vanc and cefepime on 09/24 per ID Vitals Vitals Vital Signs Date Time Temp Pulse Resp B/P (MAP) Pulse Ox O2 Delivery O2 Flow Rate FiO2 09/24/18 13:48 Nasal Cannula 2.0 09/24/18 11:00 98.2 78 18 144/70 (94) 96 98.2 Physical Exam General: Alert, Oriented X3, Cooperative, No acute distress Heart: Regular rate, Other (distant heart sounds) Lungs: Other Abdomen: Soft, Other (obese) Extremities: Other (chronic lymphedema) Skin: No breakdown, No significant lesion, Other (left chest incision appears to be approximated with steristrips and no oozing to site and no erythema except around region with mild pink erythema circumscribed around) Labs LABS Laboratory Tests Test 09/23/18 16:47 09/23/18 21:14 09/24/18 07:40 09/24/18 07:44 Glucose (Fingerstick) 206 mg/dL (70-99) 195 mg/dL (70-99) 196 mg/dL (70-99) White Blood Count 6.9 x10^3/uL (4.0-11.0) Red Blood Count 4.19 x10^6/uL (3.50-5.40) Hemoglobin 12.5 g/dL (12.0-15.5) Hematocrit 37.2 % (36.0-47.0) Mean Corpuscular Volume 89 fL (79-100) Mean Corpuscular Hemoglobin 30 pg (25-35) Mean Corpuscular Hemoglobin Concent 34 g/dL (31-37) Red Cell Distribution Width 13.5 % (11.5-14.5) Platelet Count 195 x10^3/uL (140-400) Neutrophils (%) (Auto) 61 % (31-73) Lymphocytes (%) (Auto) 22 % (24-48) Monocytes (%) (Auto) 13 % (0-9) Eosinophils (%) (Auto) 3 % (0-3) Basophils (%) (Auto) 1 % (0-3) Neutrophils # (Auto) 4.3 x10^3uL (1.8-7.7) Lymphocytes # (Auto) 1.6 x10^3/uL (1.0-4.8) Monocytes # (Auto) 0.9 x10^3/uL (0.0-1.1) Eosinophils # (Auto) 0.2 x10^3/uL (0.0-0.7) Basophils # (Auto) 0.1 x10^3/uL (0.0-0.2) Sodium Level 139 mmol/L (136-145) Potassium Level 3.9 mmol/L (3.5-5.1) Chloride Level 99 mmol/L (98-107) Carbon Dioxide Level 31 mmol/L (21-32) Anion Gap 9 (6-14) Blood Urea Nitrogen 14 mg/dL (7-20) Creatinine 0.8 mg/dL (0.6-1.0) Estimated GFR (Cockcroft-Gault) 70.7 Glucose Level 159 mg/dL (70-99) Calcium Level 9.0 mg/dL (8.5-10.1) Magnesium Level 1.8 mg/dL (1.8-2.4) Test 09/24/18 12:02 Glucose (Fingerstick) 173 mg/dL (70-99) Assessment and Plan Assessmemt and Plan Problems Medical Problems: (1) History of cardiac pacemaker Status: Acute Comment Review of Relevant I have reviewed the following items clau (where applicable) has been applied. Labs Laboratory Tests Test 09/23/18 00:55 09/23/18 01:15 09/23/18 07:15 09/23/18 11:46 Urine Collection Type U cath Urine Color Yellow Urine Clarity Clear Urine pH 6.0 Urine Specific [place] 1.010 Urine Protein Negative mg/dL (NEG-TRACE) Urine Glucose (UA) Negative mg/dL (NEG) Urine Ketones (Stick) Negative mg/dL (NEG) Urine Blood Negative (NEG) Urine Nitrite Negative (NEG) Urine Bilirubin Negative (NEG) Urine Urobilinogen Dipstick 0.2 mg/dL (0.2 mg/dL) Urine Leukocyte Esterase Moderate (NEG) Urine RBC 0 /HPF (0-2) Urine WBC 5-10 /HPF (0-4) Urine Squamous Epithelial Cells Many /LPF Urine Transitional Epithelial Cells Occ /LPF Urine Amorphous Sediment Present /HPF Urine Bacteria Few /HPF (0-FEW) Urine Mucus Slight /LPF White Blood Count 9.8 x10^3/uL (4.0-11.0) Red Blood Count 4.34 x10^6/uL (3.50-5.40) Hemoglobin 12.7 g/dL (12.0-15.5) Hematocrit 38.8 % (36.0-47.0) Mean Corpuscular Volume 89 fL (79-100) Mean Corpuscular Hemoglobin 29 pg (25-35) Mean Corpuscular Hemoglobin Concent 33 g/dL (31-37) Red Cell Distribution Width 13.5 % (11.5-14.5) Platelet Count 195 x10^3/uL (140-400) Neutrophils (%) (Auto) 63 % (31-73) Lymphocytes (%) (Auto) 21 % (24-48) Monocytes (%) (Auto) 13 % (0-9) Eosinophils (%) (Auto) 2 % (0-3) Basophils (%) (Auto) 1 % (0-3) Neutrophils # (Auto) 6.2 x10^3uL (1.8-7.7) Lymphocytes # (Auto) 2.1 x10^3/uL (1.0-4.8) Monocytes # (Auto) 1.3 x10^3/uL (0.0-1.1) Eosinophils # (Auto) 0.2 x10^3/uL (0.0-0.7) Basophils # (Auto) 0.1 x10^3/uL (0.0-0.2) Sodium Level 139 mmol/L (136-145) Potassium Level 3.9 mmol/L (3.5-5.1) Chloride Level 99 mmol/L (98-107) Carbon Dioxide Level 31 mmol/L (21-32) Anion Gap 9 (6-14) Blood Urea Nitrogen 17 mg/dL (7-20) Creatinine 0.9 mg/dL (0.6-1.0) Estimated GFR (Cockcroft-Gault) 61.7 BUN/Creatinine Ratio 19 (6-20) Glucose Level 131 mg/dL (70-99) Lactic Acid Level 1.4 mmol/L (0.4-2.0) Calcium Level 9.7 mg/dL (8.5-10.1) Magnesium Level 1.2 mg/dL (1.8-2.4) Total Bilirubin 0.5 mg/dL (0.2-1.0) Aspartate Amino Transf (AST/SGOT) 17 U/L (15-37) Alanine Aminotransferase (ALT/SGPT) 29 U/L (14-59) Alkaline Phosphatase 59 U/L (46-116) Creatine Kinase 117 U/L (26-192) Creatine Kinase MB (Mass) 0.9 ng/mL (0.0-3.6) Creatine Kinase MB Relative Index 0.8 % (0-4) Troponin I Quantitative < 0.017 ng/mL (0.000-0.055) NG-Jto-H-Type Natriuretic Peptide 253 pg/mL (0-124) Total Protein 6.8 g/dL (6.4-8.2) Albumin 3.2 g/dL (3.4-5.0) Albumin/Globulin Ratio 0.9 (1.0-1.7) Glucose (Fingerstick) 131 mg/dL (70-99) 182 mg/dL (70-99) Test 09/23/18 16:47 09/23/18 21:14 09/24/18 07:40 09/24/18 07:44 Glucose (Fingerstick) 206 mg/dL (70-99) 195 mg/dL (70-99) 196 mg/dL (70-99) White Blood Count 6.9 x10^3/uL (4.0-11.0) Red Blood Count 4.19 x10^6/uL (3.50-5.40) Hemoglobin 12.5 g/dL (12.0-15.5) Hematocrit 37.2 % (36.0-47.0) Mean Corpuscular Volume 89 fL (79-100) Mean Corpuscular Hemoglobin 30 pg (25-35) Mean Corpuscular Hemoglobin Concent 34 g/dL (31-37) Red Cell Distribution Width 13.5 % (11.5-14.5) Platelet Count 195 x10^3/uL (140-400) Neutrophils (%) (Auto) 61 % (31-73) Lymphocytes (%) (Auto) 22 % (24-48) Monocytes (%) (Auto) 13 % (0-9) Eosinophils (%) (Auto) 3 % (0-3) Basophils (%) (Auto) 1 % (0-3) Neutrophils # (Auto) 4.3 x10^3uL (1.8-7.7) Lymphocytes # (Auto) 1.6 x10^3/uL (1.0-4.8) Monocytes # (Auto) 0.9 x10^3/uL (0.0-1.1) Eosinophils # (Auto) 0.2 x10^3/uL (0.0-0.7) Basophils # (Auto) 0.1 x10^3/uL (0.0-0.2) Sodium Level 139 mmol/L (136-145) Potassium Level 3.9 mmol/L (3.5-5.1) Chloride Level 99 mmol/L (98-107) Carbon Dioxide Level 31 mmol/L (21-32) Anion Gap 9 (6-14) Blood Urea Nitrogen 14 mg/dL (7-20) Creatinine 0.8 mg/dL (0.6-1.0) Estimated GFR (Cockcroft-Gault) 70.7 Glucose Level 159 mg/dL (70-99) Calcium Level 9.0 mg/dL (8.5-10.1) Magnesium Level 1.8 mg/dL (1.8-2.4) Test 09/24/18 12:02 Glucose (Fingerstick) 173 mg/dL (70-99) Laboratory Tests Test 09/23/18 16:47 09/23/18 21:14 09/24/18 07:40 09/24/18 07:44 Glucose (Fingerstick) 206 mg/dL (70-99) 195 mg/dL (70-99) 196 mg/dL (70-99) White Blood Count 6.9 x10^3/uL (4.0-11.0) Red Blood Count 4.19 x10^6/uL (3.50-5.40) Hemoglobin 12.5 g/dL (12.0-15.5) Hematocrit 37.2 % (36.0-47.0) Mean Corpuscular Volume 89 fL (79-100) Mean Corpuscular Hemoglobin 30 pg (25-35) Mean Corpuscular Hemoglobin Concent 34 g/dL (31-37) Red Cell Distribution Width 13.5 % (11.5-14.5) Platelet Count 195 x10^3/uL (140-400) Neutrophils (%) (Auto) 61 % (31-73) Lymphocytes (%) (Auto) 22 % (24-48) Monocytes (%) (Auto) 13 % (0-9) Eosinophils (%) (Auto) 3 % (0-3) Basophils (%) (Auto) 1 % (0-3) Neutrophils # (Auto) 4.3 x10^3uL (1.8-7.7) Lymphocytes # (Auto) 1.6 x10^3/uL (1.0-4.8) Monocytes # (Auto) 0.9 x10^3/uL (0.0-1.1) Eosinophils # (Auto) 0.2 x10^3/uL (0.0-0.7) Basophils # (Auto) 0.1 x10^3/uL (0.0-0.2) Sodium Level 139 mmol/L (136-145) Potassium Level 3.9 mmol/L (3.5-5.1) Chloride Level 99 mmol/L (98-107) Carbon Dioxide Level 31 mmol/L (21-32) Anion Gap 9 (6-14) Blood Urea Nitrogen 14 mg/dL (7-20) Creatinine 0.8 mg/dL (0.6-1.0) Estimated GFR (Cockcroft-Gault) 70.7 Glucose Level 159 mg/dL (70-99) Calcium Level 9.0 mg/dL (8.5-10.1) Magnesium Level 1.8 mg/dL (1.8-2.4) Test 09/24/18 12:02 Glucose (Fingerstick) 173 mg/dL (70-99) Microbiology 09/23/18 Blood Culture - Preliminary, Resulted NO GROWTH AFTER 1 DAY Medications Current Medications Fentanyl Citrate (Fentanyl 2ml Vial) 50 mcg 1X ONCE IV Last administered on 09/23/18at 01:35; Start 09/23/18 at 01:30; Stop 09/23/18 at 01:31; Status DC Magnesium Sulfate 50 ml @ 25 mls/hr 1X ONCE IV Last administered on 09/23/18at 06:27; Start 09/23/18 at 03:00; Stop 09/23/18 at 04:59; Status DC Ondansetron HCl (Zofran) 4 mg PRN Q8HRS PRN IV NAUSEA/VOMITING 1ST CHOICE; Start 09/23/18 at 02:45; Stop 09/24/18 at 02:44; Status DC Fentanyl Citrate (Fentanyl 2ml Vial) 25 mcg PRN Q2HRS PRN IV SEVERE PAIN; Start 09/23/18 at 02:45 Insulin Human Lispro (HumaLOG) 0-5 UNITS TIDWMEALS SQ Last administered on at 12:51; Start 09/23/18 at 08:00 Dextrose (Dextrose 50%-Water Syringe) 12.5 gm PRN Q15MIN PRN IV SEE COMMENTS; Start 09/23/18 at 02:45 Clindamycin Phosphate 50 ml @ 100 mls/hr 1X ONCE IV Last administered on at 03:10; Start 09/23/18 at 03:00; Stop 09/23/18 at 03:29; Status DC Aspirin (Children'S Aspirin) 81 mg DAILY PO Last administered on 09/24/18 09:02 ; Start 09/23/18 at 12:00 Bisacodyl (Dulcolax Supp) 10 mg PRN DAILY PRN RC CONSTIPATION; Start 09/23/18 at 11:15 Budesonide (Pulmicort) 0.5 mg RTBID NEB Last administered on 09/24/18 07:02; Start 09/23/18 at 12:00 Cetirizine HCl (ZyrTEC) 10 mg PRN DAILY PRN PO ALLERGIES; Start 09/23/18 at 11: 15 Docusate Sodium (Colace) 100 mg BID PO Last administered on 09/24/18at 09:01; Start 09/23/18 at 12:00 EZETIMIBE (Zetia) 10 mg DAILY PO Last administered on 09/24/18 09:01; Start 09/23/18 at 12:00 Furosemide (Lasix) 40 mg DAILY PO Last administered on 09/23/18at 12:00; Start at 12:00; Stop 09/24/18 at 07:25; Status DC Guaifenesin (Mucinex) 600 mg PRN BID PRN PO COUGH; Start 09/23/18 at 11:15 Lorazepam (Ativan) 1 mg TID PO Last administered on 09/24/18 09:01; Start at 14:00 Metoprolol Succinate (Toprol Xl) 50 mg DAILY PO Last administered on 09/24/18 09:01; Start 09/23/18 at 12:00 Benzonatate (Tessalon Perle) 100 mg PRN TID PRN PO COUGH 2ND CHOICE; Start 09/23 at 14:00 Citalopram Hydrobromide (CeleXA) 40 mg DAILY PO Last administered on 09/24/18 09:02; Start 09/23/18 at 12:00 Non-Formulary Medication (Fluticasone/ Salmeterol (Advair 250-50 Diskus)) 1 puff BID IH ; Start 09/23/18 at 21:00; Status UNV Insulin Glargine (Lantus) 40 units BID SQ Last administered on 09/24/18 09:07; Start 09/23/18 at 12:00 Levothyroxine Sodium (Synthroid) 50 mcg DAILY06 PO Last administered on 06:27; Start 09/23/18 at 12:00 Fish Oil (Fish Oil) 1,000 mg DAILY PO Last administered on 09/24/18 09:01; Start 09/23/18 at 12:00 Polyethylene Glycol (miraLAX PACKET) 17 gm DAILY PO Last administered on 09:02; Start 09/23/18 at 12:00 Potassium Chloride (Klor-Con) 20 meq DAILYWBKFT PO ; Start 09/23/18 at 12:00; Stop 09/23/18 at 16:21; Status DC Simvastatin (Zocor) 40 mg QHS PO Last administered on 09/23/18 21:15; Start 09/23/18 at 21:00 Spironolactone (Aldactone) 25 mg BID PO Last administered on 2/6/19at 09:01; Start 09/23/18 at 12:00 Ondansetron HCl (Zofran) 4 mg PRN Q6HRS PRN IV NAUSEA/VOMITING; Start 09/23/18 at 11:15 Calcium Carbonate/ Glycine (Tums) 500 mg PRN Q3HRS PRN PO UPSET STOMACH; Start 09/23/18 at 11:15 Zolpidem Tartrate (Ambien) 5 mg PRN QHS PRN PO INSOMNIA, MAY REPEAT IN 1HR; Start 09/23/18 at 11:15 Info (Non-Icu Electrolyte Protocol) 1 ea PRN DAILY PRN MC SEE COMMENTS; Start 09/23/18 at 11:15 Senna/Docusate Sodium (Senna Plus) 1 tab BID PO Last administered on 09/24/18at 09:01; Start 09/23/18 at 12:00 Magnesium Hydroxide (Milk Of Magnesia) 2,400 mg PRN Q12HR PRN PO CONSTIPATION; Start 09/23/18 at 11:15 Heparin Sodium (Porcine) (Heparin Sodium) 5,000 unit Q8HRS SQ Last administered on 09/24/18at 06:00; Start 09/23/18 at 14:00 Clindamycin Phosphate 50 ml @ 100 mls/hr Q8HRS IV Last administered on at 06:27; Start 09/23/18 at 14:00; Stop 09/24/18 at 10:42; Status DC Furosemide (Lasix) 40 mg DAILY IVP Last administered on 09/24/18at 12:13; Start 09/23/18 at 12:00 Magnesium Sulfate 50 ml @ 25 mls/hr 1X ONCE IV Last administered on 09/23/18at 12:19; Start 09/23/18 at 12:00; Stop 09/23/18 at 13:59; Status DC Albuterol Sulfate (Ventolin Neb Soln) 2.5 mg RTQID NEB Last administered on 09/24at 10:41; Start 09/23/18 at 12:00 Perflutren Protein Type A Microsphe (Optison) 0.66 mg STK-MED ONCE IV ; Start at 11:32; Stop 09/23/18 at 11:34; Status DC Perflutren Protein Type A Microsphe (Optison) 0.66 mg PRN 1X PRN IV SEE COMMENTS; Start 09/23/18 at 12:00; Stop 09/24/18 at 11:59; Status DC Lactobacillus Rhamnosus (Culturelle) 1 cap BID PO Last administered on at 09:01; Start 09/23/18 at 21:00 Potassium Chloride (KCl Oral Soln) 20 meq DAILYWBKFT PO Last administered on 09/24/18at 09:02; Start 09/23/18 at 16:30 Perflutren Protein Type A Microsphe (Optison) 0.66 mg STK-MED ONCE IV ; Start at 12:00; Stop 09/24/18 at 08:48; Status DC Vancomycin HCl (Vanco Per Pharmacy) 1 each PRN DAILY PRN MC SEE COMMENTS Last administered on 09/24/18at 11:03; Start 09/24/18 at 10:45 Cefepime HCl (Maxipime) 2 gm Q12HR IVP Last administered on 09/24/18at 12:15; Start 09/24/18 at 11:00 Vancomycin HCl 2 gm/Sodium Chloride 500 ml @ 250 mls/hr Q12H IV Last administered on 09/24/18at 12:14; Start 09/24/18 at 12:00 Vancomycin HCl (Vancomycin Trough Level) 1 each 1X ONCE MC ; Start 09/25/18 at 23:30; Stop 09/25/18 at 23:31 Acetaminophen/ Hydrocodone Bitart (Lortab 5/325) 1 tab PRN Q4HRS PRN PO PAIN Last administered on 09/24/18at 12:48; Start 09/24/18 at 12:30 Active Scripts Active Reported Nystatin 1 Each Powder.ea. 1 Each PO BID PRN Guaifenesin 600 Mg Tablet.er 600 Mg PO BID PRN Fluconazole 100 Mg Tablet 1 Tab PO DAILY PRN Dulcolax (Bisacodyl) 10 Mg Supp.rect 10 Mg RC PRN DAILY PRN Cetirizine Hcl 10 Mg Tablet 1 Tab PO DAILY PRN Budesonide 0.5 Mg/2 Ml Ampul.neb 0.5 Mg IH BID Biotene Moisturizing Mouth (Saliva Stimulant Agents Comb.3) 44.3 Ml [place] 15 Ml MM BID PRN Benzonatate 200 Mg Capsule 1 Cap PO TID PRN Skin Treatment (Ammonium Lactate) 225 Gm Lotion 12 % TP DAILY PRN Metoprolol Succinate ( Xl ) (Metoprolol Succinate) 25 Mg Tab.er.24h 50 Mg PO DAILY Vitamin C (Ascorbic Acid) 500 Mg Tablet 500 Mg PO Vitamin D3 (Cholecalciferol (Vitamin D3)) 1,000 Unit Tablet 1,000 Unit PO Lorazepam 1 Mg Tablet 1 Mg PO TID Zetia (Ezetimibe) 10 Mg Tablet 10 Mg PO DAILY Simvastatin 40 Mg Tablet 40 Mg PO HS Potassium Chloride Packet (Potassium Chloride) 20 Meq Packet 20 Meq PO DAILY Miralax (Polyethylene Glycol 3350) 17 Gm Powd.pack 1 Pkt PO DAILY Loratadine 5 Mg/5 Ml Solution 10 Mg PO DAILY Levothyroxine Sodium 50 Mcg Tablet 50 Mcg PO DAILYAC Levemir (Insulin Detemir) 100 Unit/1 Ml Vial 40 Unit SQ BID Hydrocodone-Apap 5-325 (Hydrocodone Bit/Acetaminophen) 1 Each Tablet 1 Tab PO PRN Q6HRS PRN Fish Oil Ec 1,200 Mg Softgel ([place]-3S/Dha/Epa/Fish Oil) 1 Each Capsule.dr 1 Each PO DAILY Docusate Sodium 100 Mg Capsule 100 Mg PO BID Metformin Hcl Er (Metformin Hcl) 500 Mg Tab.er.24h 1 Tab PO BID Advair 250-50 Diskus (Fluticasone/Salmeterol) 1 Each Disk.w.dev 1 Puff IH BID Proair Hfa Inhaler (Albuterol Sulfate) 8.5 Gm Hfa.aer.ad 2 Puff IH PRN Q4-6HRS Aspirin 81 Mg Tab.chew 81 Mg PO Citalopram Hbr (Citalopram Hydrobromide) 40 Mg Tablet 40 Mg PO DAILY Furosemide 40 Mg Tablet 40 Mg PO DAILY Spironolactone 25 Mg Tablet 25 Mg PO BID Vitals/I & O Vital Sign - Last 24 Hours 09/23/18 09/23/18 09/23/18 09/23/18 19:00 20:00 20:26 23:00 Temp 99.5 99.0 99.5 99.0 Pulse 81 74 Resp 18 18 B/P (MAP) 157/74 (101) 134/62 (86) Pulse Ox 93 94 91 O2 Delivery Nasal Cannula Nasal Cannula Nasal Cannula BiPAP/CPAP O2 Flow Rate 2.0 2.0 2.0 26/19 2/6/19 2/6/19 2/6/19 03:00 07:00 07:03 09:01 Temp 98.0 98.5 98.0 98.5 Pulse 75 73 73 Resp 18 18 B/P (MAP) 154/72 (99) 123/69 (87) 123/69 Pulse Ox 90 92 91 O2 Delivery BiPAP/CPAP Nasal Cannula BiPAP/CPAP O2 Flow Rate 2.0 2.0 09/24/18 09/24/18 09/24/18 09/24/18 10:41 11:00 12:48 13:48 Temp 98.2 98.2 Pulse 78 Resp 18 B/P (MAP) 144/70 (94) Pulse Ox 96 O2 Delivery Nasal Cannula Nasal Cannula Nasal Cannula Nasal Cannula O2 Flow Rate 2.0 2.0 2.0 2.0 Intake and Output 09/23/18 09/23/18 09/24/18 15:01 23:01 07:01 Intake Total 700 ml 250 ml Output Total 950 ml Balance 700 ml -700 ml SUSHIL GRANADO MD Sep 24, 2018 15:39
[2018-09-24] MEDS ORDERED: LIDOCAINE 2% PF Vial for OR 5 ML VIAL. IJ ONE (16:00)
--- NOTE | 2018-09-24 16:00 | NUR ---
Edward performed a sterile fluid aspiration at the bedside for this patient, and used the lidocaine at this time. This nurse sent the fluid specimen down to lab, and will continue to monitor.
--- NOTE | 2018-09-24 16:21 | PDOC ---
CARDIO Progress Notes Date and Time Date of Service 09/24/2018 Time of Evaluation 1530 Subjective Subjective: No Chest Pain, No shortness of breath, No Palpitations, Other ( still has tenderness to left chest AICD region) Vitals Vitals Vital Signs Date Time Temp Pulse Resp B/P (MAP) Pulse Ox O2 Delivery O2 Flow Rate FiO2 09/24/18 13:48 Nasal Cannula 2.0 09/24/18 11:00 98.2 78 18 144/70 (94) 96 98.2 Weight Weight [ ] Input and Output Intake and Output Intake and Output 09/24/18 07:01 Intake Total 950 ml Output Total 950 ml Balance 0 ml Intake Oral 950 ml Output Urine Total 950 ml # Voids 3 Laboratory Labs Laboratory Tests Test 09/23/18 16:47 09/23/18 21:14 09/24/18 07:40 09/24/18 07:44 Glucose (Fingerstick) 206 mg/dL (70-99) 195 mg/dL (70-99) 196 mg/dL (70-99) White Blood Count 6.9 x10^3/uL (4.0-11.0) Red Blood Count 4.19 x10^6/uL (3.50-5.40) Hemoglobin 12.5 g/dL (12.0-15.5) Hematocrit 37.2 % (36.0-47.0) Mean Corpuscular Volume 89 fL (79-100) Mean Corpuscular Hemoglobin 30 pg (25-35) Mean Corpuscular Hemoglobin Concent 34 g/dL (31-37) Red Cell Distribution Width 13.5 % (11.5-14.5) Platelet Count 195 x10^3/uL (140-400) Neutrophils (%) (Auto) 61 % (31-73) Lymphocytes (%) (Auto) 22 % (24-48) Monocytes (%) (Auto) 13 % (0-9) Eosinophils (%) (Auto) 3 % (0-3) Basophils (%) (Auto) 1 % (0-3) Neutrophils # (Auto) 4.3 x10^3uL (1.8-7.7) Lymphocytes # (Auto) 1.6 x10^3/uL (1.0-4.8) Monocytes # (Auto) 0.9 x10^3/uL (0.0-1.1) Eosinophils # (Auto) 0.2 x10^3/uL (0.0-0.7) Basophils # (Auto) 0.1 x10^3/uL (0.0-0.2) Sodium Level 139 mmol/L (136-145) Potassium Level 3.9 mmol/L (3.5-5.1) Chloride Level 99 mmol/L (98-107) Carbon Dioxide Level 31 mmol/L (21-32) Anion Gap 9 (6-14) Blood Urea Nitrogen 14 mg/dL (7-20) Creatinine 0.8 mg/dL (0.6-1.0) Estimated GFR (Cockcroft-Gault) 70.7 Glucose Level 159 mg/dL (70-99) Calcium Level 9.0 mg/dL (8.5-10.1) Magnesium Level 1.8 mg/dL (1.8-2.4) Test 09/24/18 12:02 Glucose (Fingerstick) 173 mg/dL (70-99) Microbiology Micro Microbiology 09/23/18 Blood Culture - Preliminary, Resulted NO GROWTH AFTER 1 DAY Physical Exam HEENT: Neck Supple W Full Motion Chest: Symmetric LUNGS: Other (diminished bases) Heart: RRR Abdomen: Soft N/T, Other (obese) Extremities: No Calf Tenderness, Other (LE lymphedema, no erythema, leg wraps on) Neurology: alert, oriented, follow commands Other Exams Left chest incision well approximated with steristrips. No oozing, [place] erythema but no redness. head still operator to touch but no notable induration around borders. Assessment Assessment 1. Atypical chest pain: noted to with GRAPHICS ARTIST-D site.No fever/drain/leukocytosis. Noncardiac. 2. NICM/ acute on chronic systolic CHF: EF at 45%. NYHA 2, compensated. 3. Chronic LE lymphedema: no erythema 4. CAD: nonobstructive CAD [facility] in 2013 5. COPD/MIRIAM with CPAP 6. Morbid obesity 7. DM2/HLP 8. HTN: controlled 9. GRAPHICS ARTIST-D in situ: [employer]. 09/05/2018 gen change and RV lead replacement due to fractured lead. . Recommendations 1. Continue with secondary prevention 2. Antibiotics per ID. AICD site fluid aspiration due today with noted complex fluid accumulation superficial to AICD. Wait cultures. 3. Lasix therapy, lymphedema specialist following. 4. Continue BB, ASA, statin. Pt is allergic to ACEi. Will add norvasc if BP remains elevated. JEANETTE DANIELSON APRN Sep 24, 2018 16:21
[2018-09-24 19:00] VITALS: BP 154/81
[2018-09-24 19:54] LABS: BF CLARITY TURBID; BF COLOR RED; BF MON % 4 %; BF PMN % 96 %; BF RBC COUNT 55000 /cmm (Not Established)
[2018-09-24 19:55] LABS: BF WBC COUNT 4000 /cmm (Not Established)
--- NOTE | 2018-09-24 20:47 | CONS ---
DATE OF CONSULTATION: 09/24/2018 REQUESTING PHYSICIAN: Dr. Guadarrama REASON FOR CONSULTATION: Possible pacemaker infection. HISTORY OF PRESENT ILLNESS: This is a 72-year-old female who was transferred from [facility]. The patient had defibrillator placement done on 09/05 and the patient had been then sent to [facility] where she started noticing pain, redness and swelling of the pacemaker site. Hence, the patient was transferred to the hospital. The patient denied any fever, denied any nausea, vomiting, diarrhea, chest pain, she did have shortness of breath, abdominal pain, urinary symptoms or bowel symptoms. PAST MEDICAL HISTORY: Positive for CHF, COPD, diabetes, fibromyalgia, hyperlipidemia, hypertension, osteoarthritis and has AICD placement done on 09/05. Also has had appendicectomy. SOCIAL HISTORY: Negative for smoking, alcohol or illicit drug use. ALLERGIES: LISTED ALLERGIC TO PENICILLIN AND NITROFURANTOIN. REVIEW OF SYSTEMS: As per the HPI, all other systems reviewed and are negative. CURRENT MEDICATIONS: The patient is on clindamycin. PHYSICAL EXAMINATION: GENERAL: Alert, oriented female, not in distress. VITAL SIGNS: Stable with a T-max of 99.5. HEENT: NAD. NECK: Supple, no JVP, no lymphadenopathy. LUNGS: Clear. HEART: S1 and S2 regular. ABDOMEN: Benign. EXTREMITIES: No edema or cyanosis. SKIN: Unremarkable except the left upper chest where the AICD is in place. The incision is intact with the Steri-Strip in place. There is no open wound or drainage. The patient does have swelling of the surrounding area with fluid consistency as well as erythema and tenderness. NEUROLOGIC: The patient neurologically alert, awake and appropriate. No focal neurologic deficit. LABORATORY DATA: White count is 6.9, hemoglobin 12.5 and platelets are normal. BUN and creatinine is normal. Lactic acid is normal. Urinalysis is unremarkable. Blood culture is so far negative. Ultrasound of the area done, AICD area where it is showing complex fluid collection around the ICD. The chest x-ray was no acute change. IMPRESSION: 1. Left upper chest AICD site swelling, redness and pain, rule out infection, hematoma is another possibility. 2. Congestive heart failure. 3. Chronic obstructive pulmonary disease. 4. Diabetes. 5. Hyperlipidemia. 6. Hypertension. 7. Obesity. 8. Fibromyalgia. RECOMMENDATIONS: I would discontinue clindamycin. I did discuss with Dr. Stallings. He is going to put a needle to get fluid for culture as well as cell count and we will initiate vancomycin and cefepime. Supportive care and we will continue to follow. Thank you very much, Dr. Guadarrama for giving me the opportunity to participate in this patient's care. KUSUM EL MD DR: ARON/mili JOB#: [id number] / [id number]
[2018-09-24] MEDS: SIMVASTATIN 40 MG TABLET. PO SCH (21:17)
[2018-09-24 23:00] VITALS: BP 174/75
[2018-09-25] MEDS: VANCOMYCIN 2 GM in IV NORMAL SALINE 500ML BAG 500 ML IV SCH ×2 (00:07→12:12)
[2018-09-25 03:00] VITALS: BP 149/84
[2018-09-25] MEDS: LEVOTHYROXINE 50 MCG TABLET PO SCH (05:46)
[2018-09-25] MEDS: HEPARIN for SUB-Q USE 5,000 UNIT/ML VIAL. SQ SCH ×3 (05:51→21:43)
[2018-09-25 07:00] VITALS: BP 132/52
[2018-09-25] MEDS: BUDESONIDE 0.5 MG/2 ML NEBU. NEB SCH ×2 (07:27→19:51)
[2018-09-25] MEDS: ALBUTEROL SULFATE 2.5 MG/3 ML NEBU. NEB SCH ×4 (07:28→19:51)
[2018-09-25] MEDS: HYDROcodone/APAP 5/325MG 1 TAB TABLET PO PRN ×3 (08:31→21:41)
[2018-09-25] MEDS: EZETIMIBE 10 MG TABLET. PO SCH (08:32)
[2018-09-25] MEDS: LACTOBACILLUS RHAMNOSUS GG 1 CAPSULE. PO SCH ×2 (08:32→21:39)
[2018-09-25] MEDS: DOCUSATE SODIUM 100 MG CAPSULE. PO SCH ×2 (08:32→21:40)
[2018-09-25] MEDS: ASPIRIN CHEWABLE 81 MG TABLET. PO SCH (08:32)
[2018-09-25] MEDS: SPIRONOLACTONE 25 MG TABLET PO SCH ×2 (08:32→21:39)
[2018-09-25] MEDS: FUROSEMIDE 40 MG/4 ML VIAL. IVP SCH (08:32)
[2018-09-25] MEDS: METOPROLOL SUCC 24HR ER 50 MG TAB.ER.24H. PO SCH (08:33)
[2018-09-25] MEDS: CITALOPRAM 20 MG TABLET. PO SCH (08:33)
[2018-09-25] MEDS: OMEGA-3 FATTY ACIDS/FISH OIL 1,000 MG CAPSULE. PO SCH (08:33)
[2018-09-25] MEDS: LORazepam 1 MG TABLET PO SCH ×3 (08:33→21:40)
[2018-09-25] MEDS: POTASSIUM CHLORIDE 20 MEQ/15 ML ORAL LIQUID. PO SCH (08:33)
[2018-09-25] MEDS: SENNOSIDES/DOCUSATE 8.6/50MG TABLET. PO SCH ×2 (08:33→21:39)
[2018-09-25] MEDS: INSULIN GLARGINE 300 UNITS/3 ML INSULN.PEN. SQ SCH ×2 (08:37→21:43)
[2018-09-25] MEDS: INSULIN LISPRO 300 UNITS/3 ML INSULN.PEN. SQ SCH ×3 (08:40→17:51)
[2018-09-25] MEDS: CEFEPIME HCL IV Push 2 GM VIAL. IVP SCH ×2 (08:44→21:41)
--- NOTE | 2018-09-25 09:25 | NUR ---
RAMÍREZ following. Discussed with RN. RAMÍREZ met with pt, pt would like to go back to [facility]. RAMÍREZ faxed referral. SW left voicemail for pt's son, Carlos ([phone]). RN notified.
--- NOTE | 2018-09-25 09:42 | PDOC ---
Infectious Disease Note Subjective Subjective pt is feeling ok ROS ROS no n/v/d/sob Vital Sign Vital Signs Vital Signs Date Time Temp Pulse Resp B/P (MAP) Pulse Ox O2 Delivery O2 Flow Rate FiO2 09/25/18 08:33 70 132/52 09/25/18 08:31 Nasal Cannula 2.0 09/25/18 07:28 94 09/25/18 07:00 97.9 18 97.9 Physical Exam PHYSICAL EXAM GENERAL: Alert, oriented female, not in distress. VITAL SIGNS: Stable HEENT: NAD. NECK: Supple, no JVP, no lymphadenopathy. LUNGS: Clear. HEART: S1 and S2 regular. ABDOMEN: Benign. EXTREMITIES: No edema or cyanosis. SKIN: Unremarkable except the left upper chest where the AICD is in place. The incision is intact with the Steri-Strip in place. There is no open wound or drainage. The patient does have swelling of the surrounding area with fluid consistency as well as erythema and tenderness. NEUROLOGIC: The patient neurologically alert, awake and appropriate. No focal neurologic deficit. Labs Lab Laboratory Tests Test 09/24/18 12:02 09/24/18 16:00 09/24/18 16:51 09/24/18 20:44 Glucose (Fingerstick) 173 mg/dL (70-99) 194 mg/dL (70-99) 222 mg/dL (70-99) Body Fluid Source Thoracentesis Body Fluid Color Red Body Fluid Clarity Turbid Body Fluid Nucleated Cells 4000 /cmm (Not Established) Body Fluid Mononuclear WBCs (%) 4 % Body Fluid Polymorphonuclear Cells 96 % Body Fluid Total RBCs Counted 11888 /cmm (Not Test 09/25/18 06:00 Procalcitonin < 0.10 ng/mL (0.00-0.10) Micro Microbiology 09/23/18 Blood Culture - Preliminary, Resulted NO GROWTH AFTER 1 DAY Objective Assessment Pacemaker site swelling, redness and pain, rule out infection/hematoma DM HTN CAD Plan Plan of Care aspiration, cell count favors hematoma G stain pending vanc and cefepime KUSUM EL MD Sep 25, 2018 09:42
--- NOTE | 2018-09-25 10:47 | PDOC ---
CARDIO Progress Notes Date and Time Date of Service 09/25/2018 Time of Evaluation 1020 Subjective Subjective: No Chest Pain, No shortness of breath, No Palpitations, Other ( sitting, feels better today) Vitals Vitals Vital Signs Date Time Temp Pulse Resp B/P (MAP) Pulse Ox O2 Delivery O2 Flow Rate FiO2 09/25/18 08:33 70 132/52 09/25/18 08:31 Nasal Cannula 2.0 09/25/18 07:28 94 09/25/18 07:00 97.9 18 97.9 Weight Weight [ ] Input and Output Intake and Output Intake and Output 09/25/18 07:01 Intake Total 1270 ml Output Total 800 ml Balance 470 ml Intake Oral 720 ml IV Total 550 ml Output Urine Total 800 ml # Voids 6 # Bowel Movements 1 Laboratory Labs Laboratory Tests Test 09/24/18 12:02 09/24/18 16:00 09/24/18 16:51 09/24/18 20:44 Glucose (Fingerstick) 173 mg/dL (70-99) 194 mg/dL (70-99) 222 mg/dL (70-99) Body Fluid Source Thoracentesis Body Fluid Color Red Body Fluid Clarity Turbid Body Fluid Nucleated Cells 4000 /cmm (Not Established) Body Fluid Mononuclear WBCs (%) 4 % Body Fluid Polymorphonuclear Cells 96 % Body Fluid Total RBCs Counted 36734 /cmm (Not Test 09/25/18 06:00 Procalcitonin < 0.10 ng/mL (0.00-0.10) Microbiology Micro Microbiology 09/23/18 Blood Culture - Preliminary, Resulted NO GROWTH AFTER 2 DAYS 09/23/18 Urine Culture - Preliminary, Resulted 09/23/18 Urine Culture Result 1 (PIOTR) - Preliminary, Resulted 09/23/18 Urine Culture Result 2 (PIOTR) - Preliminary, Resulted Physical Exam HEENT: Neck Supple W Full Motion Chest: Symmetric LUNGS: Other (diminished bases) Heart: RRR Abdomen: Soft N/T, Other (obese) Extremities: No Calf Tenderness, Other (LE lymphedema, no erythema, leg wraps on) Neurology: alert, oriented, follow commands Other Exams Left chest incision, well approximated and scabbed with steristrips, no oozing, no redness but with tenderness to touch. Assessment Assessment 1. Atypical chest pain: Noncardiac. 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 US noted with fluid collection likely hematoma/serous 2. NICM/ acute on chronic systolic CHF: EF at 45%. NYHA 2, compensated. 3. Chronic LE lymphedema: no erythema, followed by OT specialist 4. CAD: nonobstructive CAD [facility] in 2013 5. COPD/MIRIAM with CPAP 6. Morbid obesity 7. DM2/HLP 8. HTN: controlled 9. 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 09/05/2018 gen change and RV lead replacement due to fractured lead. . Recommendations 1. Continue with secondary prevention. 2. S/P fluid aspiration to device region yesterday and obtain approx 4 ml of serosanguinous fluid with no significant sediments noted to sample. Site remains normal but tender. Discussed with RN, Steristrips could be removed. 3. Awaiting cultures. Antibiotics per ID. Anticpate DC tomorrow. 4. Lasix therapy, lymphedema specialist following. 5. Continue BB, ASA, statin. Pt is allergic to ACEi. Will add norvasc if BP remains elevated. JEANETTE DANIELSON CONSTRUCTION TECH Sep 25, 2018 10:47
[2018-09-25 11:00] VITALS: BP 132/59
[2018-09-25] MEDS: VANCOMYCIN PER PHARMACY MC PRN (13:31)
[2018-09-25 15:00] VITALS: BP 154/60
[2018-09-25] MEDS: POLYETHYLENE GLYCOL 3350 17 GM PACKET. PO SCH (15:54)
--- NOTE | 2018-09-25 16:13 | PDOC ---
PROGRESS NOTES Chief Complaint Chief Complaint no acute issues overnight. 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 continue IV abx per ID TTE ok IV lasix for edema continue home cardiac meds including statin, asa, BB continue home insulin therapy aspiration of fluid for culture and cell count. culturs pending bc neg so far d/c'd clindamycin on 09/24, changed to vanc and cefepime on 09/24 per ID anticipate dc melany pending culture results. Vitals Vitals Vital Signs Date Time Temp Pulse Resp B/P (MAP) Pulse Ox O2 Delivery O2 Flow Rate FiO2 09/25/18 15:36 Nasal Cannula 2.0 09/25/18 15:00 97.5 82 18 154/60 (91) 92 97.5 Physical Exam Physical Exam GENERAL: Alert, oriented female, not in distress. VITAL SIGNS: Stable HEENT: NAD. NECK: Supple, no JVP, no lymphadenopathy. LUNGS: Clear. HEART: S1 and S2 regular. ABDOMEN: Benign. EXTREMITIES: No edema or cyanosis. SKIN: Unremarkable except the left upper chest where the AICD is in place. The incision is intact with the Steri-Strip in place. There is no open wound or drainage. The patient does have swelling of the surrounding area with fluid consistency as well as erythema and tenderness. NEUROLOGIC: The patient neurologically alert, awake and appropriate. No focal neurologic deficit. General: Alert, Oriented X3, Cooperative, No acute distress Heart: Regular rate, Other (distant heart sounds) Lungs: Other Abdomen: Soft, Other (obese) Extremities: Other (chronic lymphedema) Skin: No breakdown, No significant lesion, Other (left chest incision appears to be approximated with steristrips and no oozing to site and no erythema except around region with mild pink erythema circumscribed around) Labs LABS Laboratory Tests Test 09/24/18 16:51 09/24/18 20:44 09/25/18 06:00 Glucose (Fingerstick) 194 mg/dL (70-99) 222 mg/dL (70-99) Procalcitonin < 0.10 ng/mL (0.00-0.10) Assessment and Plan Assessmemt and Plan Problems Medical Problems: (1) History of cardiac pacemaker Status: Acute Comment Review of Relevant I have reviewed the following items clau (where applicable) has been applied. Labs Laboratory Tests Test 09/23/18 16:47 09/23/18 21:14 09/24/18 07:40 09/24/18 07:44 Glucose (Fingerstick) 206 mg/dL (70-99) 195 mg/dL (70-99) 196 mg/dL (70-99) White Blood Count 6.9 x10^3/uL (4.0-11.0) Red Blood Count 4.19 x10^6/uL (3.50-5.40) Hemoglobin 12.5 g/dL (12.0-15.5) Hematocrit 37.2 % (36.0-47.0) Mean Corpuscular Volume 89 fL (79-100) Mean Corpuscular Hemoglobin 30 pg (25-35) Mean Corpuscular Hemoglobin Concent 34 g/dL (31-37) Red Cell Distribution Width 13.5 % (11.5-14.5) Platelet Count 195 x10^3/uL (140-400) Neutrophils (%) (Auto) 61 % (31-73) Lymphocytes (%) (Auto) 22 % (24-48) Monocytes (%) (Auto) 13 % (0-9) Eosinophils (%) (Auto) 3 % (0-3) Basophils (%) (Auto) 1 % (0-3) Neutrophils # (Auto) 4.3 x10^3uL (1.8-7.7) Lymphocytes # (Auto) 1.6 x10^3/uL (1.0-4.8) Monocytes # (Auto) 0.9 x10^3/uL (0.0-1.1) Eosinophils # (Auto) 0.2 x10^3/uL (0.0-0.7) Basophils # (Auto) 0.1 x10^3/uL (0.0-0.2) Sodium Level 139 mmol/L (136-145) Potassium Level 3.9 mmol/L (3.5-5.1) Chloride Level 99 mmol/L (98-107) Carbon Dioxide Level 31 mmol/L (21-32) Anion Gap 9 (6-14) Blood Urea Nitrogen 14 mg/dL (7-20) Creatinine 0.8 mg/dL (0.6-1.0) Estimated GFR (Cockcroft-Gault) 70.7 Glucose Level 159 mg/dL (70-99) Calcium Level 9.0 mg/dL (8.5-10.1) Magnesium Level 1.8 mg/dL (1.8-2.4) Test 09/24/18 12:02 09/24/18 16:00 09/24/18 16:51 09/24/18 20:44 Glucose (Fingerstick) 173 mg/dL (70-99) 194 mg/dL (70-99) 222 mg/dL (70-99) Body Fluid Source Thoracentesis Body Fluid Color Red Body Fluid Clarity Turbid Body Fluid Nucleated Cells 4000 /cmm (Not Established) Body Fluid Mononuclear WBCs (%) 4 % Body Fluid Polymorphonuclear Cells 96 % Body Fluid Total RBCs Counted 11229 /cmm (Not Test 09/25/18 06:00 Procalcitonin < 0.10 ng/mL (0.00-0.10) Laboratory Tests Test 09/24/18 16:51 09/24/18 20:44 09/25/18 06:00 Glucose (Fingerstick) 194 mg/dL (70-99) 222 mg/dL (70-99) Procalcitonin < 0.10 ng/mL (0.00-0.10) Microbiology 09/23/18 Blood Culture - Preliminary, Resulted NO GROWTH AFTER 2 DAYS 09/23/18 Urine Culture - Final, Complete 09/23/18 Urine Culture Result 1 (PIOTR) - Final, Complete 09/23/18 Urine Culture Result 2 (PIOTR) - Final, Complete 09/23/18 Antimicrobic Susceptibility - Final, Complete Medications Current Medications Fentanyl Citrate (Fentanyl 2ml Vial) 50 mcg 1X ONCE IV Last administered on 09/23/18at 01:35; Start 09/23/18 at 01:30; Stop 09/23/18 at 01:31; Status DC Magnesium Sulfate 50 ml @ 25 mls/hr 1X ONCE IV Last administered on 09/23/18at 06:27; Start 09/23/18 at 03:00; Stop 09/23/18 at 04:59; Status DC Ondansetron HCl (Zofran) 4 mg PRN Q8HRS PRN IV NAUSEA/VOMITING 1ST CHOICE; Start 09/23/18 at 02:45; Stop 09/24/18 at 02:44; Status DC Fentanyl Citrate (Fentanyl 2ml Vial) 25 mcg PRN Q2HRS PRN IV SEVERE PAIN; Start 09/23/18 at 02:45 Insulin Human Lispro (HumaLOG) 0-5 UNITS TIDWMEALS SQ Last administered on at 12:22; Start 09/23/18 at 08:00 Dextrose (Dextrose 50%-Water Syringe) 12.5 gm PRN Q15MIN PRN IV SEE COMMENTS; Start 09/23/18 at 02:45 Clindamycin Phosphate 50 ml @ 100 mls/hr 1X ONCE IV Last administered on at 03:10; Start 09/23/18 at 03:00; Stop 09/23/18 at 03:29; Status DC Aspirin (Children'S Aspirin) 81 mg DAILY PO Last administered on 09/25/18 08:32 ; Start 09/23/18 at 12:00 Bisacodyl (Dulcolax Supp) 10 mg PRN DAILY PRN RC CONSTIPATION; Start 09/23/18 at 11:15 Budesonide (Pulmicort) 0.5 mg RTBID NEB Last administered on 09/25/18 07:27; Start 09/23/18 at 12:00 Cetirizine HCl (ZyrTEC) 10 mg PRN DAILY PRN PO ALLERGIES; Start 09/23/18 at 11: 15 Docusate Sodium (Colace) 100 mg BID PO Last administered on 09/25/18at 08:32; Start 09/23/18 at 12:00 EZETIMIBE (Zetia) 10 mg DAILY PO Last administered on 09/25/18 08:32; Start 09/23/18 at 12:00 Furosemide (Lasix) 40 mg DAILY PO Last administered on 09/23/18at 12:00; Start at 12:00; Stop 09/24/18 at 07:25; Status DC Guaifenesin (Mucinex) 600 mg PRN BID PRN PO COUGH; Start 09/23/18 at 11:15 Lorazepam (Ativan) 1 mg TID PO Last administered on 09/25/18at 15:56; Start at 14:00 Metoprolol Succinate (Toprol Xl) 50 mg DAILY PO Last administered on 09/25/18 08:33; Start 09/23/18 at 12:00 Benzonatate (Tessalon Perle) 100 mg PRN TID PRN PO COUGH 2ND CHOICE; Start 09/23 at 14:00 Citalopram Hydrobromide (CeleXA) 40 mg DAILY PO Last administered on 09/25/18 08:33; Start 09/23/18 at 12:00 Non-Formulary Medication (Fluticasone/ Salmeterol (Advair 250-50 Diskus)) 1 puff BID IH ; Start 09/23/18 at 21:00; Status UNV Insulin Glargine (Lantus) 40 units BID SQ Last administered on 09/25/18 08:37; Start 09/23/18 at 12:00 Levothyroxine Sodium (Synthroid) 50 mcg DAILY06 PO Last administered on 05:46; Start 09/23/18 at 12:00 Fish Oil (Fish Oil) 1,000 mg DAILY PO Last administered on 09/25/18 08:33; Start 09/23/18 at 12:00 Polyethylene Glycol (miraLAX PACKET) 17 gm DAILY PO Last administered on 15:54; Start 09/23/18 at 12:00 Potassium Chloride (Klor-Con) 20 meq DAILYWBKFT PO ; Start 09/23/18 at 12:00; Stop 09/23/18 at 16:21; Status DC Simvastatin (Zocor) 40 mg QHS PO Last administered on 09/24/18 21:17; Start 09/23/18 at 21:00 Spironolactone (Aldactone) 25 mg BID PO Last administered on 09/25/18 08:32; Start 09/23/18 at 12:00 Ondansetron HCl (Zofran) 4 mg PRN Q6HRS PRN IV NAUSEA/VOMITING; Start 09/23/18 at 11:15 Calcium Carbonate/ Glycine (Tums) 500 mg PRN Q3HRS PRN PO UPSET STOMACH; Start 09/23/18 at 11:15 Zolpidem Tartrate (Ambien) 5 mg PRN QHS PRN PO INSOMNIA, MAY REPEAT IN 1HR; Start 09/23/18 at 11:15 Info (Non-Icu Electrolyte Protocol) 1 ea PRN DAILY PRN MC SEE COMMENTS; Start 09/23/18 at 11:15 Senna/Docusate Sodium (Senna Plus) 1 tab BID PO Last administered on 09/25/18 08:33; Start 09/23/18 at 12:00 Magnesium Hydroxide (Milk Of Magnesia) 2,400 mg PRN Q12HR PRN PO CONSTIPATION; Start 09/23/18 at 11:15 Heparin Sodium (Porcine) (Heparin Sodium) 5,000 unit Q8HRS SQ Last administered on 09/25/18at 15:58; Start 09/23/18 at 14:00 Clindamycin Phosphate 50 ml @ 100 mls/hr Q8HRS IV Last administered on at 06:27; Start 09/23/18 at 14:00; Stop 09/24/18 at 10:42; Status DC Furosemide (Lasix) 40 mg DAILY IVP Last administered on 09/25/18 08:32; Start 09/23/18 at 12:00 Magnesium Sulfate 50 ml @ 25 mls/hr 1X ONCE IV Last administered on 09/23/18at 12:19; Start 09/23/18 at 12:00; Stop 09/23/18 at 13:59; Status DC Albuterol Sulfate (Ventolin Neb Soln) 2.5 mg RTQID NEB Last administered on 09/25at 15:36; Start 09/23/18 at 12:00 Perflutren Protein Type A Microsphe (Optison) 0.66 mg STK-MED ONCE IV ; Start at 11:32; Stop 09/23/18 at 11:34; Status DC Perflutren Protein Type A Microsphe (Optison) 0.66 mg PRN 1X PRN IV SEE COMMENTS; Start 09/23/18 at 12:00; Stop 09/24/18 at 11:59; Status DC Lactobacillus Rhamnosus (Culturelle) 1 cap BID PO Last administered on at 08:32; Start 09/23/18 at 21:00 Potassium Chloride (KCl Oral Soln) 20 meq DAILYWBKFT PO Last administered on 2/ 7/19at 08:33; Start 09/23/18 at 16:30 Perflutren Protein Type A Microsphe (Optison) 0.66 mg STK-MED ONCE IV ; Start at 12:00; Stop 09/24/18 at 08:48; Status DC Vancomycin HCl (Vanco Per Pharmacy) 1 each PRN DAILY PRN MC SEE COMMENTS Last administered on 09/25/18at 13:31; Start 09/24/18 at 10:45 Cefepime HCl (Maxipime) 2 gm Q12HR IVP Last administered on 09/25/18at 08:44; Start 09/24/18 at 11:00 Vancomycin HCl 2 gm/Sodium Chloride 500 ml @ 250 mls/hr Q12H IV Last administered on 09/25/18at 12:12; Start 09/24/18 at 12:00 Vancomycin HCl (Vancomycin Trough Level) 1 each 1X ONCE MC ; Start 09/25/18 at 23:30; Stop 09/25/18 at 23:31 Acetaminophen/ Hydrocodone Bitart (Lortab 5/325) 1 tab PRN Q4HRS PRN PO PAIN Last administered on 09/25/18at 08:31; Start 09/24/18 at 12:30 Lidocaine HCl (Lidocaine Pf 2% Vial) 5 ml 1X ONCE IJ ; Start 09/24/18 at 16:00; Stop 09/24/18 at 16:01; Status DC Active Scripts Active Reported Nystatin 1 Each Powder.ea. 1 Each PO BID PRN Guaifenesin 600 Mg Tablet.er 600 Mg PO BID PRN Fluconazole 100 Mg Tablet 1 Tab PO DAILY PRN Dulcolax (Bisacodyl) 10 Mg Supp.rect 10 Mg RC PRN DAILY PRN Cetirizine Hcl 10 Mg Tablet 1 Tab PO DAILY PRN Budesonide 0.5 Mg/2 Ml Ampul.neb 0.5 Mg IH BID Biotene Moisturizing Mouth (Saliva Stimulant Agents Comb.3) 44.3 Ml [place] 15 Ml MM BID PRN Benzonatate 200 Mg Capsule 1 Cap PO TID PRN Skin Treatment (Ammonium Lactate) 225 Gm Lotion 12 % TP DAILY PRN Metoprolol Succinate ( Xl ) (Metoprolol Succinate) 25 Mg Tab.er.24h 50 Mg PO DAILY Vitamin C (Ascorbic Acid) 500 Mg Tablet 500 Mg PO Vitamin D3 (Cholecalciferol (Vitamin D3)) 1,000 Unit Tablet 1,000 Unit PO Lorazepam 1 Mg Tablet 1 Mg PO TID Zetia (Ezetimibe) 10 Mg Tablet 10 Mg PO DAILY Simvastatin 40 Mg Tablet 40 Mg PO HS Potassium Chloride Packet (Potassium Chloride) 20 Meq Packet 20 Meq PO DAILY Miralax (Polyethylene Glycol 3350) 17 Gm Powd.pack 1 Pkt PO DAILY Loratadine 5 Mg/5 Ml Solution 10 Mg PO DAILY Levothyroxine Sodium 50 Mcg Tablet 50 Mcg PO DAILYAC Levemir (Insulin Detemir) 100 Unit/1 Ml Vial 40 Unit SQ BID Hydrocodone-Apap 5-325 (Hydrocodone Bit/Acetaminophen) 1 Each Tablet 1 Tab PO PRN Q6HRS PRN Fish Oil Ec 1,200 Mg Softgel ([place]-3S/Dha/Epa/Fish Oil) 1 Each Capsule.dr 1 Each PO DAILY Docusate Sodium 100 Mg Capsule 100 Mg PO BID Metformin Hcl Er (Metformin Hcl) 500 Mg Tab.er.24h 1 Tab PO BID Advair 250-50 Diskus (Fluticasone/Salmeterol) 1 Each Disk.w.dev 1 Puff IH BID Proair Hfa Inhaler (Albuterol Sulfate) 8.5 Gm Hfa.aer.ad 2 Puff IH PRN Q4-6HRS Aspirin 81 Mg Tab.chew 81 Mg PO Citalopram Hbr (Citalopram Hydrobromide) 40 Mg Tablet 40 Mg PO DAILY Furosemide 40 Mg Tablet 40 Mg PO DAILY Spironolactone 25 Mg Tablet 25 Mg PO BID Vitals/I & O Vital Sign - Last 24 Hours 09/24/18 09/24/18 09/24/18 09/24/18 16:23 19:00 19:30 19:40 Temp 98.1 98.1 Pulse 82 Resp 18 B/P (MAP) 154/81 (105) Pulse Ox 94 92 O2 Delivery Nasal Cannula Nasal Cannula Nasal Cannula Nasal Cannula O2 Flow Rate 2.0 2.0 2.0 2.0 09/24/18 09/24/18 09/24/18 09/25/18 21:18 22:18 23:00 03:00 Temp 99.1 98.6 99.1 98.6 Pulse 74 70 Resp 18 18 18 18 B/P (MAP) 174/75 (108) 149/84 (105) Pulse Ox 92 96 96 O2 Delivery Nasal Cannula Nasal Cannula Nasal Cannula O2 Flow Rate 2.0 2.0 2.0 09/25/18 09/25/18 09/25/18 09/25/18 07:00 07:28 07:45 08:31 Temp 97.9 97.9 Pulse 70 Resp 18 B/P (MAP) 132/52 (78) Pulse Ox 95 94 O2 Delivery Nasal Cannula Nasal Cannula Nasal Cannula Nasal Cannula O2 Flow Rate 2.0 2.0 2.0 2.0 09/25/18 09/25/18 09/25/18 09/25/18 08:33 09:35 11:00 11:23 Temp 98.3 98.3 Pulse 70 71 Resp 18 B/P (MAP) 132/52 132/59 (83) Pulse Ox 92 93 O2 Delivery Nasal Cannula Nasal Cannula Nasal Cannula O2 Flow Rate 2.0 2.0 2.0 09/25/18 09/25/18 15:00 15:36 Temp 97.5 97.5 Pulse 82 Resp 18 B/P (MAP) 154/60 (91) Pulse Ox 92 O2 Delivery Nasal Cannula Nasal Cannula O2 Flow Rate 2.0 2.0 Intake and Output 09/24/18 09/24/18 09/25/18 15:01 23:01 07:01 Intake Total 470 ml 250 ml 550 ml Output Total 800 ml Balance 470 ml -550 ml 550 ml SUSHIL GRANADO MD Sep 25, 2018 16:13
[2018-09-25 19:00] VITALS: BP 167/69
[2018-09-25] MEDS: SIMVASTATIN 40 MG TABLET. PO SCH (21:40)
[2018-09-25 23:00] VITALS: BP 151/65
[2018-09-26] MEDS: VANCOMYCIN 2 GM in IV NORMAL SALINE 500ML BAG 500 ML IV SCH ×2
--- NOTE | 2018-09-26 00:24 | NUR ---
vanco trough received at 0020 of 23.0, pharmacy notified, stated that they were dosing the vanco for pt, order received to hold the 2gm 0000 dose, medication not administered.
[2018-09-26] MEDS: VANCOMYCIN PER PHARMACY MC PRN (01:16)
--- NOTE | 2018-09-26 01:18 | NUR ---
Pharmacy Vancomycin Dosing Note S: Consulted to monitor and dose vancomycin started 09/24/18. O: JO-ANN MORELAND is a 72 year old F with Cellulitis .(LEFT UPPER CHEST AICD SITE SWELLING) W/POSS HEMATOMA Other Antibiotics: CEFEPIME 2/ - LABS: Last BUN: 14 Last Creatinine: 0.8 Creatinine Clearance: 70 mL/min Last WBC: 6.9 Last Platelets: Tmax (past 24 hours): 99.1 Microbiology: BC NG1D, UCX STREP COLONIZATION + GNR I/O: 1270/800 Drug Levels: Last Trough level: 23.0 on 09/25/18 at 2330 Last dose given 09/25/18 at 1212 Vancomycin Dosing: Dosing Weight: Actual Target Trough: 10-20 A: Based on: Trough(H) P: 1. 09/26/18 0000 Vancomycin 2000mg IV dose HELD. 2. Follow up Trough level on 09/26/18 at 1200 3. Pharmacy will continue to monitor, follow and adjust therapy as needed. ARTURO SONG RPH, 09/26/18 0118 Signed: 09/26/18 at 0129 by ARTURO SONG RPH PHA Signed: 09/26/18 at 0136 by ARTURO SONG RPH PHA
[2018-09-26 03:00] VITALS: BP 149/62
[2018-09-26] MEDS: LEVOTHYROXINE 50 MCG TABLET PO SCH (05:36)
[2018-09-26] MEDS: HEPARIN for SUB-Q USE 5,000 UNIT/ML VIAL. SQ SCH ×2 (05:39→14:36)
[2018-09-26 07:00] VITALS: BP 149/77
[2018-09-26] MEDS: ALBUTEROL SULFATE 2.5 MG/3 ML NEBU. NEB SCH ×2 (07:16→11:21)
[2018-09-26] MEDS: BUDESONIDE 0.5 MG/2 ML NEBU. NEB SCH (07:16)
[2018-09-26] MEDS: POTASSIUM CHLORIDE 20 MEQ/15 ML ORAL LIQUID. PO SCH (08:45)
[2018-09-26] MEDS: OMEGA-3 FATTY ACIDS/FISH OIL 1,000 MG CAPSULE. PO SCH (08:46)
[2018-09-26] MEDS: ASPIRIN CHEWABLE 81 MG TABLET. PO SCH (08:46)
[2018-09-26] MEDS: SENNOSIDES/DOCUSATE 8.6/50MG TABLET. PO SCH (08:46)
[2018-09-26] MEDS: CITALOPRAM 20 MG TABLET. PO SCH (08:46)
[2018-09-26] MEDS: POLYETHYLENE GLYCOL 3350 17 GM PACKET. PO SCH (08:46)
[2018-09-26] MEDS: LACTOBACILLUS RHAMNOSUS GG 1 CAPSULE. PO SCH (08:46)
[2018-09-26] MEDS: LORazepam 1 MG TABLET PO SCH ×2 (08:47→14:33)
[2018-09-26] MEDS: EZETIMIBE 10 MG TABLET. PO SCH (08:47)
[2018-09-26] MEDS: SPIRONOLACTONE 25 MG TABLET PO SCH (08:47)
[2018-09-26] MEDS: FUROSEMIDE 40 MG/4 ML VIAL. IVP SCH (08:47)
[2018-09-26] MEDS: DOCUSATE SODIUM 100 MG CAPSULE. PO SCH (08:47)
[2018-09-26] MEDS: METOPROLOL SUCC 24HR ER 50 MG TAB.ER.24H. PO SCH (08:48)
[2018-09-26] MEDS: CEFEPIME HCL IV Push 2 GM VIAL. IVP SCH (08:49)
[2018-09-26] MEDS: INSULIN GLARGINE 300 UNITS/3 ML INSULN.PEN. SQ SCH (09:18)
[2018-09-26] MEDS: INSULIN LISPRO 300 UNITS/3 ML INSULN.PEN. SQ SCH ×2 (09:18→13:00)
--- NOTE | 2018-09-26 10:48 | PDOC ---
Infectious Disease Note Subjective Subjective pt is feeling good, walked ROS ROS no n/v/d/sob Vital Sign Vital Signs Vital Signs Date Time Temp Pulse Resp B/P (MAP) Pulse Ox O2 Delivery O2 Flow Rate FiO2 09/26/18 08:48 74 149/77 09/26/18 07:17 93 HOME CPAP 2.0 09/26/18 07:00 97.6 20 97.6 Physical Exam PHYSICAL EXAM GENERAL: Alert, oriented female, not in distress. VITAL SIGNS: Stable HEENT: NAD. NECK: Supple, no JVP, no lymphadenopathy. LUNGS: Clear. HEART: S1 and S2 regular. ABDOMEN: Benign. EXTREMITIES: No edema or cyanosis. SKIN: Unremarkable except the left upper chest where the AICD is in place. The incision is intact with the Steri-Strip in place. There is no open wound or drainage. The patient does have swelling of the surrounding area with fluid consistency as well as erythema and tenderness. NEUROLOGIC: The patient neurologically alert, awake and appropriate. No focal neurologic deficit. Labs Lab Laboratory Tests Test 09/25/18 16:45 09/25/18 20:56 09/25/18 23:30 09/26/18 07:55 Glucose (Fingerstick) 186 mg/dL (70-99) 235 mg/dL (70-99) 157 mg/dL (70-99) Vancomycin Level Trough 23.0 mcg/mL (10.0-20.0) Vancomycin Last Dose Date Vancomycin Last Dose Time Micro Microbiology 09/23/18 Blood Culture - Preliminary, Resulted NO GROWTH AFTER 1 DAY Objective Assessment Pacemaker site swelling, redness and pain, rule out infection/hematoma DM HTN CAD Plan Plan of Care aspiration, cell count favors hematoma culture is neg so far ok to d/c on po doxy f/u with us in 10 days KUSUM EL MD Sep 26, 2018 10:48
[2018-09-26 11:00] VITALS: BP 134/65
[2018-09-26] MEDS ORDERED: LORA1TAB PO (11:27)
[2018-09-26] MEDS ORDERED: DOXY100T PO (11:27)
[2018-09-26] MEDS ORDERED: HYDR-2761 PO (11:27)
--- NOTE | 2018-09-26 11:28 | DISCH ---
DISCHARGE DISCHARGE INFORMATION: FINAL DIAGNOSIS Problems Medical Problems: (1) History of cardiac pacemaker Status: Acute CONDITION ON DISCHARGE: Stable CODE STATUS: Code Status: Full CARE HOME: SNF STAY <30 DAYS: Yes POST DISCHARGE ORDERS: ACTIVITY ORDERS: Resume previous activity, Activity as tolerated WEIGHT BEARING STATUS: Other, see below DIET AFTER DISCHARGE: ADA WOUND/INCISION CARE: Ice to area for comfort CHECKS AFTER DISCHARGE: CHECKS AFTER DISCHARGE: Check blood press - daily, Check blood sugar, ac/hs, Weigh Yourself Daily FOLLOW-UP: LAB ORDERS FOR FOLLOW-UP: BMP in one week TREATMENT/EQUIPMENT ORDERS: ADAPTIVE EQUIPMENT NEEDED: Brace/splint, Commode, Residential Treatment Specialist, Walker RESPIRATORY EQUIPMENT NEEDED: Oxygen Physical Therapy For: Evalulation/Treatment Occupational Therapy For: Evaluation/Treatment DISCHARGE MEDICATIONS: Home Meds Active Scripts Doxycycline Hyclate (DOXYCYCLINE HYCLATE) 100 Mg Tablet, 100 MG PO BID for skin infection for 10 Days, #20 TAB Prov:SUSHIL GRANADO MD 09/26/18 Lorazepam (LORAZEPAM) 1 Mg Tablet, 1 MG PO TID for anxiety for 5 Days, #15 TAB Prov:SUSHIL GRANADO MD 09/26/18 Hydrocodone Bit/Acetaminophen (HYDROCODONE-APAP 5-325 ) 1 Each Tablet, 1 TAB PO PRN Q6HRS PRN for PAIN for 5 Days, #20 TAB 0 Refills Prov:SUSHIL GRANADO MD 09/26/18 Reported Medications Nystatin (NYSTATIN) 1 Each Powder.ea., 1 EACH PO BID PRN for SKIN CLEANSING, EACH 09/23/18 Guaifenesin (GUAIFENESIN) 600 Mg Tablet.er, 600 MG PO BID PRN for COUGH, TAB.SR 09/23/18 Bisacodyl (DULCOLAX) 10 Mg Supp.rect, 10 MG RC PRN DAILY PRN for CONSTIPATION, SUPP.RECT 0 Refills 09/23/18 Cetirizine Hcl (CETIRIZINE HCL) 10 Mg Tablet, 1 TAB PO DAILY PRN for ALLERGIES, #30 TAB 5 Refills 09/23/18 Budesonide (BUDESONIDE) 0.5 Mg/2 Ml Ampul.neb, 0.5 MG IH BID for SOA, EACH 09/23/18 Saliva Stimulant Agents Comb.3 (BIOTENE MOISTURIZING MOUTH) 44.3 Ml [place], 15 ML MM BID PRN for dry mouth, SPRAY 09/23/18 Benzonatate (BENZONATATE) 200 Mg Capsule, 1 CAP PO TID PRN for COUGH, #30 CAP 09/23/18 Ammonium Lactate (SKIN TREATMENT) 225 Gm Lotion, 12 % TP DAILY PRN for Bilaterally to lower extremiti, MISC 09/23/18 Metoprolol Succinate (METOPROLOL SUCCINATE ( XL )) 25 Mg Tab.er.24h, 50 MG PO DAILY for FOR HYPERTENSION, #30 TAB 0 Refills 07/31/17 Ascorbic Acid (VITAMIN C) 500 Mg Tablet, 500 MG PO, TAB 07/31/17 Cholecalciferol (Vitamin D3) (VITAMIN D3) 1,000 Unit Tablet, 1000 UNIT PO, TAB 07/31/17 Ezetimibe (ZETIA) 10 Mg Tablet, 10 MG PO DAILY, TAB 03/04/15 Simvastatin (SIMVASTATIN) 40 Mg Tablet, 40 MG PO HS for FOR CHOLESTEROL, #30 TAB 0 Refills 03/04/15 Potassium Chloride (POTASSIUM CHLORIDE PACKET) 20 Meq Packet, 20 MEQ PO DAILY, PACKET 03/04/15 Polyethylene Glycol 3350 (MIRALAX) 17 Gm Powd.pack, 1 PKT PO DAILY, PKT 03/04/15 Loratadine (Loratadine) 5 Mg/5 Ml Solution, 10 MG PO DAILY 03/04/15 Levothyroxine Sodium (LEVOTHYROXINE SODIUM) 50 Mcg Tablet, 50 MCG PO DAILYAC for THYROID SUPPLEMENT, #30 TAB 0 Refills 03/04/15 Insulin Detemir (LEVEMIR) 100 Unit/1 Ml Vial, 40 UNIT SQ BID, VIAL 03/04/15 [place]-3S/Dha/Epa/Fish Oil (FISH OIL EC 1,200 MG SOFTGEL) 1 Each Capsule.dr, 1 EACH PO DAILY 03/04/15 Docusate Sodium (DOCUSATE SODIUM) 100 Mg Capsule, 100 MG PO BID 03/04/15 Metformin Hcl (METFORMIN HCL ER) 500 Mg Tab.er.24h, 1 TAB PO BID, #180 TAB 3 Refills 08/16/14 Fluticasone/Salmeterol (ADVAIR 250-50 DISKUS) 1 Each Disk.w.dev, 1 PUFF IH BID, #3 INHALER 3 Refills 08/16/14 Albuterol Sulfate (PROAIR HFA INHALER) 8.5 Gm Hfa.aer.ad, 2 PUFF IH PRN Q4-6HRS , #1 INHALER 08/16/14 Aspirin (ASPIRIN) 81 Mg Tab.chew, 81 MG PO, TAB.CHEW 01/25/14 Citalopram Hydrobromide (CITALOPRAM HBR) 40 Mg Tablet, 40 MG PO DAILY, TAB 01/25/14 Furosemide (FUROSEMIDE) 40 Mg Tablet, 40 MG PO DAILY, TAB 01/25/14 Spironolactone (SPIRONOLACTONE) 25 Mg Tablet, 25 MG PO BID, TAB 01/25/14 Discontinued Reported Medications Fluconazole (FLUCONAZOLE) 100 Mg Tablet, 1 TAB PO DAILY PRN for candidiasis, # 10 TAB 09/23/18 SUSHIL GRANADO MD Sep 26, 2018 11:28
--- NOTE | 2018-09-26 11:55 | PDOC3 ---
Discharge Summary Visit Information Date of Admission: Sep 23, 2018 Date of Discharge: Sep 26, 2018 Final Diagnosis Problems Medical Problems: (1) History of cardiac pacemaker Status: Acute Brief Hospital Course Allergies Allergies Coded Allergies Type Severity Reaction Last Updated Verified YURY Inhibitors Allergy Intermediate 08/01/17 Yes Penicillins Allergy Intermediate 09/25/18 Yes droperidol Allergy Intermediate 08/01/17 Yes nitrofurantoin Allergy Intermediate 08/01/17 Yes Vital Signs Vital Signs Date Time Temp Pulse Resp B/P (MAP) Pulse Ox O2 Delivery O2 Flow Rate FiO2 09/26/18 11:22 94 HOME CPAP 2.0 09/26/18 11:00 98.1 72 16 134/65 (88) 98.1 Lab Results Laboratory Tests Test 09/24/18 12:02 09/24/18 16:00 09/24/18 16:51 09/24/18 20:44 Glucose (Fingerstick) 173 mg/dL (70-99) 194 mg/dL (70-99) 222 mg/dL (70-99) Body Fluid Source Body Fluid Color Red Body Fluid Clarity Turbid Body Fluid Nucleated Cells 4000 /cmm (Not Established) Body Fluid Mononuclear WBCs (%) 4 % Body Fluid Polymorphonuclear Cells 96 % Body Fluid Total RBCs Counted 02135 /cmm (Not Test 09/25/18 06:00 09/25/18 16:45 09/25/18 20:56 09/25/18 23:30 Procalcitonin < 0.10 ng/mL (0.00-0.10) Glucose (Fingerstick) 186 mg/dL (70-99) 235 mg/dL (70-99) Vancomycin Level Trough 23.0 mcg/mL (10.0-20.0) Vancomycin Last Dose Date Vancomycin Last Dose Time Test 09/26/18 07:55 Glucose (Fingerstick) 157 mg/dL (70-99) Laboratory Tests Test 09/25/18 16:45 09/25/18 20:56 09/25/18 23:30 09/26/18 07:55 Glucose (Fingerstick) 186 mg/dL (70-99) 235 mg/dL (70-99) 157 mg/dL (70-99) Vancomycin Level Trough 23.0 mcg/mL (10.0-20.0) Vancomycin Last Dose Date Vancomycin Last Dose Time Brief Hospital Course 72-year-old female who was transferred from [facility] s/p defibrillator placement done on 09/05 and the patient had been then sent to [facility] where she started noticing pain, redness and swelling of the pacemaker site. Hence, the patient was transferred to the hospital. The patient denied any fever, nausea, vomiting, diarrhea, chest pain, she did have shortness of breath, abdominal pain, urinary symptoms or bowel symptoms. hospitalist called for admission. there was concern for pacer site infection. US done and possible hematoma vs abscess. sx consulted for aspiration of fluid. patient initially placed on clinda but switched to vanc and maxipime. cultures from fluid aspirate negative. likely hematoma. will plan to dc on doxy. apprec ID. cards also consulted as well. TTE checked and WNL. she was continued on her home lasix and remaining meds. she will need continued PT and will be discharged to facility in stable condition. Discharge Information Condition at Discharge: Stable Disposition/Orders: D/C to Another Facility Scheduled Albuterol Sulfate (Proair Hfa Inhaler) 8.5 Gm Hfa.aer.ad, 2 PUFF IH PRN Q4-6HRS , #1 (Reported) Entered as Reported by: MAX GRACE on 08/16/14 0952 Last Action: Reviewed on 09/23/18542 by ARDEN ALEXANDRA RN Budesonide (Budesonide) 0.5 Mg/2 Ml Ampul.neb, 0.5 MG IH BID for SOA, (Reported) Entered as Reported by: ARDEN ALEXANDRA RN on 09/23/18542 Last Action: Continued on 09/23/181106 by SUSHIL GRANADO MD Citalopram Hydrobromide (Citalopram Hbr) 40 Mg Tablet, 40 MG PO DAILY, (Reported ) Entered as Reported by: REMY LOPEZ on 01/25/14 1146 Last Action: Converted on 09/23/181106 by SUSHIL GRANADO MD Docusate Sodium (Docusate Sodium) 100 Mg Capsule, 100 MG PO BID, (Reported) Entered as Reported by: SG BINGHAM on 03/04/15 1159 Last Action: Continued on 09/23/181106 by SUSHIL GRANADO MD Doxycycline Hyclate (Doxycycline Hyclate) 100 Mg Tablet, 100 MG PO BID for skin infection for 10 Days, #20 Prescribed by: SUSHIL GRANADO MD on 09/26/181126 Ezetimibe (Zetia) 10 Mg Tablet, 10 MG PO DAILY, (Reported) Entered as Reported by: SG BINGHAM on 03/04/151158 Last Action: Continued on 09/23/181106 by SUSHIL GRANADO MD Fluticasone/Salmeterol (Advair 250-50 Diskus) 1 Each Disk.w.dev, 1 PUFF IH BID, #3 Ref 3 (Reported) Entered as Reported by: MAX GRACE on 08/16/14 0952 Last Action: Converted on 09/23/181106 by SUSHIL GRANADO MD Furosemide (Furosemide) 40 Mg Tablet, 40 MG PO DAILY, (Reported) Entered as Reported by: REMY LOPEZ on 01/25/14 1146 Last Action: Continued on 09/23/181106 by SUSHIL GRANADO MD Insulin Detemir (Levemir) 100 Unit/1 Ml Vial, 40 UNIT SQ BID, (Reported) Entered as Reported by: SG BINGHAM on 03/04/151158 Last Action: Converted on 09/23/181106 by SUSHIL GRANADO MD Levothyroxine Sodium (Levothyroxine Sodium) 50 Mcg Tablet, 50 MCG PO DAILYAC for THYROID SUPPLEMENT, #30 Ref 0 (Reported) Entered as Reported by: SG BINGHAM on 03/04/151158 Last Action: Converted on 09/23/181106 by SUSHIL GRANADO MD Loratadine (Loratadine) 5 Mg/5 Ml Solution, 10 MG PO DAILY, (Reported) Entered as Reported by: SG BINGHAM on 03/04/15 115 Lorazepam (Lorazepam) 1 Mg Tablet, 1 MG PO TID for anxiety for 5 Days, #15 Prescribed by: SUSHIL GRANADO MD on 09/26/181126 Metformin Hcl (Metformin Hcl Er) 500 Mg Tab.er.24h, 1 TAB PO BID, #180 Ref 3 ( Reported) Entered as Reported by: MAX GRACE on 08/16/14 0953 Last Action: Reviewed on 09/23/18 542 by ARDEN ALEXANDRA RN Metoprolol Succinate (Metoprolol Succinate ( Xl )) 25 Mg Tab.er.24h, 50 MG PO DAILY for FOR HYPERTENSION, #30 Ref 0 (Reported) Entered as Reported by: KONSTANTIN HERRERA on 07/31/17 1602 Last Action: Continued on 09/23/181106 by SUSHIL GRANADO MD [place]ckley-3S/Dha/Epa/Fish Oil (Fish Oil Ec 1,200 Mg Softgel) 1 Each Capsule.dr, 1 EACH PO DAILY, (Reported) Entered as Reported by: SG BINGHAM on 03/04/151158 Last Action: Converted on 09/23/181106 by SUSHIL GRANADO MD Polyethylene Glycol 3350 (Miralax) 17 Gm Powd.pack, 1 PKT PO DAILY, (Reported) Entered as Reported by: SG BINGHAM on 03/04/151158 Last Action: Converted on 09/23/181106 by SUSHIL GRANADO MD Potassium Chloride (Potassium Chloride Packet) 20 Meq Packet, 20 MEQ PO DAILY, ( Reported) Entered as Reported by: SG BINGHAM on 03/04/15 115 Last Action: Converted on 09/23/181106 by SUSHIL GRANADO MD Simvastatin (Simvastatin) 40 Mg Tablet, 40 MG PO HS for FOR CHOLESTEROL, #30 Ref 0 (Reported) Entered as Reported by: SG BINGHAM on 03/04/151158 Last Action: Converted on 09/23/181106 by SUSHIL GRANADO MD Spironolactone (Spironolactone) 25 Mg Tablet, 25 MG PO BID, (Reported) Entered as Reported by: REMY LOPEZ on 01/25/14 1146 Last Action: Converted on 09/23/181106 by SUSHIL GRANADO MD Scheduled PRN Ammonium Lactate (Skin Treatment) 225 Gm Lotion, 12 % TP DAILY PRN for Bilaterally to lower extremiti, (Reported) Entered as Reported by: ARDEN ALEXANDRA RN on 09/23/18542 Last Action: Reviewed on 09/23/18543 by ARDEN ALEXANDRA RN Benzonatate (Benzonatate) 200 Mg Capsule, 1 CAP PO TID PRN for COUGH, #30 ( Reported) Entered as Reported by: ARDEN ALEXANDRA RN on 09/23/18542 Last Action: Converted on 09/23/181106 by SUSHIL GRANADO MD Bisacodyl (Dulcolax) 10 Mg Supp.rect, 10 MG RC PRN DAILY PRN for CONSTIPATION, Ref 0 (Reported) Entered as Reported by: ARDEN ALEXANDRA RN on 09/23/18542 Last Action: Continued on 09/23/181106 by SUSHIL GRANADO MD Cetirizine Hcl (Cetirizine Hcl) 10 Mg Tablet, 1 TAB PO DAILY PRN for ALLERGIES, #30 Ref 5 (Reported) Entered as Reported by: ARDEN ALEXANDRA RN on 09/23/18542 Last Action: Continued on 09/23/181106 by SUSHIL GRANADO MD Guaifenesin (Guaifenesin) 600 Mg Tablet.er, 600 MG PO BID PRN for COUGH, ( Reported) Entered as Reported by: ARDEN ALEXANDRA RN on 09/23/18542 Last Action: Continued on 09/23/181106 by SUSHIL GRANADO MD Hydrocodone Bit/Acetaminophen (Hydrocodone-Apap 5-325 ) 1 Each Tablet, 1 TAB PO PRN Q6HRS PRN for PAIN for 5 Days, #20 Ref 0 Prescribed by: SUSHIL GRANADO MD on 09/26/181126 Nystatin (Nystatin) 1 Each Powder.ea., 1 EACH PO BID PRN for SKIN CLEANSING, ( Reported) Entered as Reported by: ARDEN ALEXANDRA RN on 09/23/18542 Last Action: Reviewed on 09/23/18543 by ARDEN ALEXANDRA RN Saliva Stimulant Agents Comb.3 (Biotene Moisturizing Mouth) 44.3 Ml [place], 15 ML MM BID PRN for dry mouth, (Reported) Entered as Reported by: ARDEN ALEXANDRA RN on 09/23/18542 Last Action: Reviewed on 09/23/18543 by ARDEN ALEXANDRA RN Miscellaneous Medications Ascorbic Acid (Vitamin C) 500 Mg Tablet, 500 MG PO, (Reported) Entered as Reported by: KONSTANTIN HERRERA on 07/31/17 1600 Last Action: Reviewed on 09/23/18542 by ARDEN ALEXANDRA RN Aspirin (Aspirin) 81 Mg Tab.chew, 81 MG PO, (Reported) Entered as Reported by: Sammy Lopez on 01/25/14 1922 Last Action: Continued on 09/23/181106 by SUSHIL GRANADO MD Cholecalciferol (Vitamin D3) (Vitamin D3) 1,000 Unit Tablet, 1,000 UNIT PO, ( Reported) Entered as Reported by: KONSTANTIN HERRERA on 07/31/17 1559 Last Action: Reviewed on 09/23/18542 by ARDEN ALEXANDRA RN Discontinued Medications Fluconazole (Fluconazole) 100 Mg Tablet, 1 TAB PO DAILY PRN for candidiasis, #10 (Reported) Entered as Reported by: ARDEN ALEXANDRA RN on 09/23/18542 Last Action: Reviewed on 09/23/18543 by GEORGIA YING MANEESH MD Sep 26, 2018 11:55
[2018-09-26 13:37] LABS: CREATININE 0.9 mg/dL (0.6-1.0); GFR 61.7; MAGNESIUM 1.7 mg/dL (1.8-2.4); POTASSIUM 4.5 mmol/L (3.5-5.1)
--- NOTE | 2018-09-26 14:45 | NUR ---
RAMÍREZ following. [facility] received insurance auth for pt to return to [facility]. Pt will be transported at 1530. RN contacted SW to advise pt was stating she doesn't want to go back to [facility]. RAMÍREZ met with pt to discuss next level of care and that pt had originally said she wanted to return to [facility]. Pt is worried about her cat and why her son has not answered her phone calls or [facility]'s phone calls. Pt wanted to contact her daughter in law, Linda but her phone number is in pt's phone in her room at [facility]. An RN earlier in the week had contacted [facility] to determine if they could get pt's phone, [facility] stated they could not do this. RAMÍREZ contacted Margarita at [facility] whilst with pt, Margarita advised if pt gave permission she could go to her room and get the phone to get pt's DIL's phone number. RAMÍREZ contacted Linda in pt's room, Linda reported she and her had been on a cruise and got back last night so they did not have any service. RAMÍREZ queried whether Linda and Carlos would be able to check on pt's cat as pt is worried about this. RAMÍREZ discussed with pt reasons for not wanting to return to [facility], pt stated "I guess I should go back" and advised pt a social services designee there was going to help with giving pt information about finding an independent living solution for pt as pt is interested in this. RAMÍREZ strongly advised pt to request to speak with social work when she gets back to [facility] and let them know pt is needing help with this and would also like home health at discharge from [facility]. Pt in agreement to go to [facility] and signed pt choice and rights letter - letters were placed on pt chart. RN notified. Addendum: 09/26/18 at 1540 by COLTON ELMORE ---Pt's daughter in Linda barker's phone number *cell: [phone], work: [phone].
--- NOTE | 2018-09-26 15:24 | NUR ---
Pt discharged back to the [facility] by w/jessica higgins. Report given to nurse Dang. No changes from previous assessment. Pacemaker incision site with incision well approximated and three small steri strips; fading bruises and no redness or swelling.
--- NOTE | 2018-09-26 17:18 | PDOC ---
PROGRESS NOTES Subjective Subjective Patient seen and examined The patient looks and feels better today. Objective Objective Vital Signs Date Time Temp Pulse Resp B/P (MAP) Pulse Ox O2 Delivery O2 Flow Rate FiO2 09/26/18 11:22 94 HOME CPAP 2.0 09/26/18 11:00 98.1 72 16 134/65 (88) 98.1 Intake and Output 09/26/18 07:01 Intake Total 120 ml Balance 120 ml Intake Oral 120 ml # Voids 8 # Bowel Movements 1 Physical Exam Abdomen: Normal bowel sounds Heart: Regular rate General: No acute distress Lungs: Clear to auscultation Assessment Assessment Problems Medical Problems: (1) History of cardiac pacemaker Status: Acute The patient is feeling better today. Swelling and inflammation at the site of ICD placement. Continued improvement today. Continuing antibiotics as per ID. Compensated heart failure. Continue present treatment. Chronic lower extremity lymphedema. Nonobstructive coronary artery disease. 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 Controlled hypertension. Diabetes mellitus as per the primary service. Comment Review of Relevant I have reviewed the following items clau (where applicable) has been applied. Labs Laboratory Tests Test 09/24/18 20:44 09/25/18 06:00 09/25/18 16:45 09/25/18 20:56 Glucose (Fingerstick) 222 mg/dL (70-99) 186 mg/dL (70-99) 235 mg/dL (70-99) Procalcitonin < 0.10 ng/mL (0.00-0.10) Test 09/25/18 23:30 09/26/18 07:55 09/26/18 12:21 09/26/18 13:10 Vancomycin Level Trough 23.0 mcg/mL (10.0-20.0) Vancomycin Last Dose Date Vancomycin Last Dose Time Glucose (Fingerstick) 157 mg/dL (70-99) 197 mg/dL (70-99) Sodium Level 136 mmol/L (136-145) Potassium Level 4.5 mmol/L (3.5-5.1) Chloride Level 96 mmol/L (98-107) Carbon Dioxide Level 29 mmol/L (21-32) Anion Gap 11 (6-14) Blood Urea Nitrogen 14 mg/dL (7-20) Creatinine 0.9 mg/dL (0.6-1.0) Estimated GFR (Cockcroft-Gault) 61.7 Glucose Level 207 mg/dL (70-99) Calcium Level 10.0 mg/dL (8.5-10.1) Magnesium Level 1.7 mg/dL (1.8-2.4) Procalcitonin < 0.10 ng/mL (0.00-0.10) Laboratory Tests Test 09/25/18 20:56 09/25/18 23:30 09/26/18 07:55 09/26/18 12:21 Glucose (Fingerstick) 235 mg/dL (70-99) 157 mg/dL (70-99) 197 mg/dL (70-99) Vancomycin Level Trough 23.0 mcg/mL (10.0-20.0) Vancomycin Last Dose Date Vancomycin Last Dose Time Test 09/26/18 13:10 Sodium Level 136 mmol/L (136-145) Potassium Level 4.5 mmol/L (3.5-5.1) Chloride Level 96 mmol/L (98-107) Carbon Dioxide Level 29 mmol/L (21-32) Anion Gap 11 (6-14) Blood Urea Nitrogen 14 mg/dL (7-20) Creatinine 0.9 mg/dL (0.6-1.0) Estimated GFR (Cockcroft-Gault) 61.7 Glucose Level 207 mg/dL (70-99) Calcium Level 10.0 mg/dL (8.5-10.1) Magnesium Level 1.7 mg/dL (1.8-2.4) Procalcitonin < 0.10 ng/mL (0.00-0.10) Microbiology 09/23/18 Blood Culture - Preliminary, Resulted NO GROWTH AFTER 3 DAYS 09/23/18 Urine Culture - Final, Complete 09/23/18 Urine Culture Result 1 (PIOTR) - Final, Complete 09/23/18 Urine Culture Result 2 (PIOTR) - Final, Complete 09/23/18 Antimicrobic Susceptibility - Final, Complete 09/24/18 Anaerobic/Aerobic Culture, Resulted Pending 09/24/18 Anaerobic Culture Result 1 (PIOTR), Resulted Pending 09/24/18 Aerobic Culture, Resulted Pending 09/24/18 Aerobic Culture Result 1 (PIOTR), Resulted Pending 09/24/18 Gram Stain - Final, Resulted 09/24/18 Gram Stain Result 1 (PIOTR) - Final, Resulted 09/24/18 Gram Stain Result 2 (PIOTR) - Final, Resulted Medications Current Medications Fentanyl Citrate (Fentanyl 2ml Vial) 50 mcg 1X ONCE IV Last administered on 09/23/18at 01:35; Start 09/23/18 at 01:30; Stop 09/23/18 at 01:31; Status DC Magnesium Sulfate 50 ml @ 25 mls/hr 1X ONCE IV Last administered on 09/23/18at 06:27; Start 09/23/18 at 03:00; Stop 09/23/18 at 04:59; Status DC Ondansetron HCl (Zofran) 4 mg PRN Q8HRS PRN IV NAUSEA/VOMITING 1ST CHOICE; Start 09/23/18 at 02:45; Stop 09/24/18 at 02:44; Status DC Fentanyl Citrate (Fentanyl 2ml Vial) 25 mcg PRN Q2HRS PRN IV SEVERE PAIN; Start 09/23/18 at 02:45 Insulin Human Lispro (HumaLOG) 0-5 UNITS TIDWMEALS SQ Last administered on at 13:00; Start 09/23/18 at 08:00 Dextrose (Dextrose 50%-Water Syringe) 12.5 gm PRN Q15MIN PRN IV SEE COMMENTS; Start 09/23/18 at 02:45 Clindamycin Phosphate 50 ml @ 100 mls/hr 1X ONCE IV Last administered on at 03:10; Start 09/23/18 at 03:00; Stop 09/23/18 at 03:29; Status DC Aspirin (Children'S Aspirin) 81 mg DAILY PO Last administered on 09/26/18at 08:46 ; Start 09/23/18 at 12:00 Bisacodyl (Dulcolax Supp) 10 mg PRN DAILY PRN RC CONSTIPATION; Start 09/23/18 at 11:15 Budesonide (Pulmicort) 0.5 mg RTBID NEB Last administered on 09/26/18at 07:16; Start 09/23/18 at 12:00 Cetirizine HCl (ZyrTEC) 10 mg PRN DAILY PRN PO ALLERGIES; Start 09/23/18 at 11: 15 Docusate Sodium (Colace) 100 mg BID PO Last administered on 09/26/18at 08:47; Start 09/23/18 at 12:00 EZETIMIBE (Zetia) 10 mg DAILY PO Last administered on 09/26/18 08:47; Start 09/23/18 at 12:00 Furosemide (Lasix) 40 mg DAILY PO Last administered on 09/23/18 12:00; Start at 12:00; Stop 09/24/18 at 07:25; Status DC Guaifenesin (Mucinex) 600 mg PRN BID PRN PO COUGH; Start 09/23/18 at 11:15 Lorazepam (Ativan) 1 mg TID PO Last administered on 09/26/18 14:33; Start at 14:00 Metoprolol Succinate (Toprol Xl) 50 mg DAILY PO Last administered on 09/26/18 08:48; Start 09/23/18 at 12:00 Benzonatate (Tessalon Perle) 100 mg PRN TID PRN PO COUGH 2ND CHOICE; Start 09/23 at 14:00 Citalopram Hydrobromide (CeleXA) 40 mg DAILY PO Last administered on 09/26/18 08:46; Start 09/23/18 at 12:00 Non-Formulary Medication (Fluticasone/ Salmeterol (Advair 250-50 Diskus)) 1 puff BID IH ; Start 09/23/18 at 21:00; Status UNV Insulin Glargine (Lantus) 40 units BID SQ Last administered on 09/26/18 09:18; Start 09/23/18 at 12:00 Levothyroxine Sodium (Synthroid) 50 mcg DAILY06 PO Last administered on 05:36; Start 09/23/18 at 12:00 Fish Oil (Fish Oil) 1,000 mg DAILY PO Last administered on 09/26/18 08:46; Start 09/23/18 at 12:00 Polyethylene Glycol (miraLAX PACKET) 17 gm DAILY PO Last administered on 08:46; Start 09/23/18 at 12:00 Potassium Chloride (Klor-Con) 20 meq DAILYWBKFT PO ; Start 09/23/18 at 12:00; Stop 09/23/18 at 16:21; Status DC Simvastatin (Zocor) 40 mg QHS PO Last administered on 2/7/19at 21:40; Start 09/23/18 at 21:00 Spironolactone (Aldactone) 25 mg BID PO Last administered on 09/26/18 08:47; Start 09/23/18 at 12:00 Ondansetron HCl (Zofran) 4 mg PRN Q6HRS PRN IV NAUSEA/VOMITING; Start 09/23/18 at 11:15 Calcium Carbonate/ Glycine (Tums) 500 mg PRN Q3HRS PRN PO UPSET STOMACH; Start 09/23/18 at 11:15 Zolpidem Tartrate (Ambien) 5 mg PRN QHS PRN PO INSOMNIA, MAY REPEAT IN 1HR; Start 09/23/18 at 11:15 Info (Non-Icu Electrolyte Protocol) 1 ea PRN DAILY PRN MC SEE COMMENTS; Start 09/23/18 at 11:15 Senna/Docusate Sodium (Senna Plus) 1 tab BID PO Last administered on 09/26/18at 08:46; Start 09/23/18 at 12:00 Magnesium Hydroxide (Milk Of Magnesia) 2,400 mg PRN Q12HR PRN PO CONSTIPATION; Start 09/23/18 at 11:15 Heparin Sodium (Porcine) (Heparin Sodium) 5,000 unit Q8HRS SQ Last administered on 09/26/18 14:36; Start 09/23/18 at 14:00 Clindamycin Phosphate 50 ml @ 100 mls/hr Q8HRS IV Last administered on 06:27; Start 09/23/18 at 14:00; Stop 09/24/18 at 10:42; Status DC Furosemide (Lasix) 40 mg DAILY IVP Last administered on 09/26/18 08:47; Start 09/23/18 at 12:00 Magnesium Sulfate 50 ml @ 25 mls/hr 1X ONCE IV Last administered on 09/23/18at 12:19; Start 09/23/18 at 12:00; Stop 09/23/18 at 13:59; Status DC Albuterol Sulfate (Ventolin Neb Soln) 2.5 mg RTQID NEB Last administered on 09/26 11:21; Start 09/23/18 at 12:00 Perflutren Protein Type A Microsphe (Optison) 0.66 mg STK-MED ONCE IV ; Start at 11:32; Stop 09/23/18 at 11:34; Status DC Perflutren Protein Type A Microsphe (Optison) 0.66 mg PRN 1X PRN IV SEE COMMENTS; Start 09/23/18 at 12:00; Stop 09/24/18 at 11:59; Status DC Lactobacillus Rhamnosus (Culturelle) 1 cap BID PO Last administered on at 08:46; Start 09/23/18 at 21:00 Potassium Chloride (KCl Oral Soln) 20 meq DAILYWBKFT PO Last administered on 09/26/18at 08:45; Start 09/23/18 at 16:30 Perflutren Protein Type A Microsphe (Optison) 0.66 mg STK-MED ONCE IV ; Start at 12:00; Stop 09/24/18 at 08:48; Status DC Vancomycin HCl (Vanco Per Pharmacy) 1 each PRN DAILY PRN MC SEE COMMENTS Last administered on 09/26/18at 01:16; Start 09/24/18 at 10:45; Stop 09/26/18 at 12:31; Status DC Cefepime HCl (Maxipime) 2 gm Q12HR IVP Last administered on 09/26/18 08:49; Start 09/24/18 at 11:00; Stop 09/26/18 at 10:49; Status DC Vancomycin HCl 2 gm/Sodium Chloride 500 ml @ 250 mls/hr Q12H IV Last administered on 09/25/18at 12:12; Start 09/24/18 at 12:00; Stop 09/26/18 at 01:02; Status DC Vancomycin HCl (Vancomycin Trough Level) 1 each 1X ONCE MC Last administered on 09/25/18at 23:30; Start 09/25/18 at 23:30; Stop 09/26/18 at 12:31; Status DC Acetaminophen/ Hydrocodone Bitart (Lortab 5/325) 1 tab PRN Q4HRS PRN PO PAIN Last administered on 09/25/18at 21:41; Start 09/24/18 at 12:30 Lidocaine HCl (Lidocaine Pf 2% Vial) 5 ml 1X ONCE IJ ; Start 09/24/18 at 16:00; Stop 09/24/18 at 16:01; Status DC Vancomycin HCl (Vancomycin Trough Level) 1 each 1X ONCE MC ; Start 09/26/18 at 12:00; Stop 09/26/18 at 12:31; Status DC Doxycycline Hyclate (Vibra-Tab) 100 mg BID PO ; Start 09/26/18 at 21:00 Active Scripts Active Doxycycline Hyclate 100 Mg Tablet 100 Mg PO BID 10 Days Lorazepam 1 Mg Tablet 1 Mg PO TID 5 Days Hydrocodone-Apap 5-325 (Hydrocodone Bit/Acetaminophen) 1 Each Tablet 1 Tab PO PRN Q6HRS PRN 5 Days Reported Nystatin 1 Each Powder.ea. 1 Each PO BID PRN Guaifenesin 600 Mg Tablet.er 600 Mg PO BID PRN Dulcolax (Bisacodyl) 10 Mg Supp.rect 10 Mg RC PRN DAILY PRN Cetirizine Hcl 10 Mg Tablet 1 Tab PO DAILY PRN Budesonide 0.5 Mg/2 Ml Ampul.neb 0.5 Mg IH BID Biotene Moisturizing Mouth (Saliva Stimulant Agents Comb.3) 44.3 Ml [place] 15 Ml MM BID PRN Benzonatate 200 Mg Capsule 1 Cap PO TID PRN Skin Treatment (Ammonium Lactate) 225 Gm Lotion 12 % TP DAILY PRN Metoprolol Succinate ( Xl ) (Metoprolol Succinate) 25 Mg Tab.er.24h 50 Mg PO DAILY Vitamin C (Ascorbic Acid) 500 Mg Tablet 500 Mg PO Vitamin D3 (Cholecalciferol (Vitamin D3)) 1,000 Unit Tablet 1,000 Unit PO Zetia (Ezetimibe) 10 Mg Tablet 10 Mg PO DAILY Simvastatin 40 Mg Tablet 40 Mg PO HS Potassium Chloride Packet (Potassium Chloride) 20 Meq Packet 20 Meq PO DAILY Miralax (Polyethylene Glycol 3350) 17 Gm Powd.pack 1 Pkt PO DAILY Loratadine 5 Mg/5 Ml Solution 10 Mg PO DAILY Levothyroxine Sodium 50 Mcg Tablet 50 Mcg PO DAILYAC Levemir (Insulin Detemir) 100 Unit/1 Ml Vial 40 Unit SQ BID Fish Oil Ec 1,200 Mg Softgel ([place]-3S/Dha/Epa/Fish Oil) 1 Each Capsule.dr 1 Each PO DAILY Docusate Sodium 100 Mg Capsule 100 Mg PO BID Metformin Hcl Er (Metformin Hcl) 500 Mg Tab.er.24h 1 Tab PO BID Advair 250-50 Diskus (Fluticasone/Salmeterol) 1 Each Disk.w.dev 1 Puff IH BID Proair Hfa Inhaler (Albuterol Sulfate) 8.5 Gm Hfa.aer.ad 2 Puff IH PRN Q4-6HRS Aspirin 81 Mg Tab.chew 81 Mg PO Citalopram Hbr (Citalopram Hydrobromide) 40 Mg Tablet 40 Mg PO DAILY Furosemide 40 Mg Tablet 40 Mg PO DAILY Spironolactone 25 Mg Tablet 25 Mg PO BID Vitals/I & O Vital Sign - Last 24 Hours 09/25/18 09/25/18 09/25/18 09/25/18 17:46 19:00 19:05 19:52 Temp 98.3 98.3 Pulse 79 Resp 18 B/P (MAP) 167/69 (101) Pulse Ox 92 92 92 98 O2 Delivery Nasal Cannula Nasal Cannula Nasal Cannula O2 Flow Rate 2.0 2.0 2.0 09/25/18 09/25/18 09/25/18 09/25/18 19:55 20:00 21:41 22:43 Pulse Ox 98 O2 Delivery Nasal Cannula Nasal Cannula Nasal Cannula Nasal Cannula O2 Flow Rate 2.0 3.0 3.0 3.0 09/25/18 09/26/18 09/26/18 09/26/18 23:00 03:00 07:00 07:17 Temp 98.3 97.9 97.6 98.3 97.9 97.6 Pulse 76 75 74 Resp 18 18 20 B/P (MAP) 151/65 (93) 149/62 (91) 149/77 (101) Pulse Ox 91 91 92 93 O2 Delivery Nasal Cannula BiPAP/CPAP Nasal Cannula HOME CPAP O2 Flow Rate 2.0 2.0 2.0 09/26/18 09/26/18 09/26/18 09/26/18 07:55 08:48 11:00 11:22 Temp 98.1 98.1 Pulse 74 72 Resp 16 B/P (MAP) 149/77 134/65 (88) Pulse Ox 93 94 O2 Delivery Nasal Cannula Room Air HOME CPAP O2 Flow Rate 2.0 2.0 Intake and Output 09/25/18 09/25/18 09/26/18 15:01 23:01 07:01 Intake Total 120 ml Balance 120 ml SIM SHAW MD Sep 26, 2018 17:18
[2018-09-26] MEDS ORDERED: DOXYCYCLINE HYCLATE 100 MG TABLET PO SCH (21:00)
== END 2018-09-26 15:40 | disposition home or self-care (01) | DRG 314 ==
LOC: ER 23:42 → 4 NORTH 09-23 02:40
PROVIDERS: ADMIT Internal Medicine; ATTEND Internal Medicine
PROC: 5A09357 Assistance with Respiratory Ventilation, Less than 24 Consecutive Hours, Continuous Positive Airway Pressure (ICD-10-PCS; principal; 2018-09-23)
PROC: 5A09357 Assistance with Respiratory Ventilation, Less than 24 Consecutive Hours, Continuous Positive Airway Pressure (ICD-10-PCS; 2018-09-24)
PROC: 5A09357 Assistance with Respiratory Ventilation, Less than 24 Consecutive Hours, Continuous Positive Airway Pressure (ICD-10-PCS; 2018-09-26)
DX: T82.7XXA Infection and inflammatory reaction due to other cardiac and vascular devices, implants and grafts, initial encounter (principal); I50.23 Acute on chronic systolic (congestive) heart failure; I42.9 Cardiomyopathy, unspecified; Z68.43 Body mass index [BMI] 50.0-59.9, adult; I25.10 Atherosclerotic heart disease of native coronary artery without angina pectoris; L53.9 Erythematous condition, unspecified; E83.42 Hypomagnesemia; Z95.0 Presence of cardiac pacemaker; I11.0 Hypertensive heart disease with heart failure; E78.5 Hyperlipidemia, unspecified; E11.9 Type 2 diabetes mellitus without complications; F41.9 Anxiety disorder, unspecified; J44.9 Chronic obstructive pulmonary disease, unspecified; M19.90 Unspecified osteoarthritis, unspecified site; R07.89 Other chest pain; G47.33 Obstructive sleep apnea (adult) (pediatric); I89.0 Lymphedema, not elsewhere classified; E66.01 Morbid (severe) obesity due to excess calories; M79.7 Fibromyalgia; B37.9 Candidiasis, unspecified; E78.00 Pure hypercholesterolemia, unspecified; K21.9 Gastro-esophageal reflux disease without esophagitis; Z79.4 Long term (current) use of insulin; Z79.51 Long term (current) use of inhaled steroids; Z79.899 Other long term (current) drug therapy; Z90.49 Acquired absence of other specified parts of digestive tract; Z95.810 Presence of automatic (implantable) cardiac defibrillator; Z88.0 Allergy status to penicillin; Z88.8 Allergy status to other drugs, medicaments and biological substances
CPT/HCPCS: 51701; 99285; C8929; 36415; 71045; 76604; 80048; 80053; 80202; 81001; 82553; 82962; 83605; 83735; 83880; 84145; 84484; 85025; 87040; 87071; 87075; 87086; 87186; 89050; 93005; 94640; 94760; 96365; 96375; J0692; J1644; J1815; J1940; J3010; J3370; J3475; J3490; J7040; J7613; J7626; Q9956; 97116; 97530; 97535

== ENCOUNTER → 2019-03-23 | Outpatient (CLI) | payer OTHER ==
[~2019-03-23] MED LIST changes: +AMMO225L8 TP; +BENZ200C47 PO; +BISA10SU55 RC; +BUDE0.5A IH; +CETI10TA16 PO; -CLON1TAB11 PO; +CLONAZEPAM1 MG PO; +DOXY100T PO; +FLUC100T4 PO; +GUAI600T79 PO; +IOHEXOL 240 MG/ML 50ML VIAL. PO ONE; +IOHEXOL 300 MG/ML 100ML VIAL. IV ONE; +NYST1POW2 PO; +SALI44.3 MM
--- NOTE | 2019-03-23 17:05 | KCIC ---
Examination: CT ABD PELV W/ORAL IV CONTRAST History: Ventral hernia without gangrene or obstruction Comparison/Correlation: 11/19/2014 CT abdomen and pelvis with contrast Findings: Axial images of the abdomen and pelvis were obtained following oral and IV contrast. Sagittal and coronal reformatted images provided. ICD leads are present. Visualized lung bases are unremarkable. Fatty infiltration of the liver is present. At the hepatic dome, there is a 1.3 cm diameter cyst. At the right hepatic dome posteriorly, there is a 2.1 cm diameter cyst. Calcified granuloma involve the spleen. Renal cysts are present. No hydronephrosis. Pancreas is unremarkable. Gallbladder fossa is unremarkable. Diverticulosis of the colon is present. Moderate quantity of stool in the colon. No ascites or pelvic free fluid. No extraluminal gas. Mildly high density of the mesentery is present similar to prior exam. Abdominal wall mesh material is noted at the supraumbilical level. No suspicious focal hernia defect. Distal duodenal diverticulum measuring up to 3.5 cm diameter is present. Exaggerated lordosis of the lumbar spine is evident. Urinary bladder is unremarkable. Impression: Fatty infiltration liver. Duodenal diverticulum diverticulosis of the colon. No bowel obstruction. Abdominal wall mesh material is noted in the supraumbilical level. No focal hernia defect identified PQRS Compliance Statement: One or more of the following individualized dose reduction techniques were utilized for this examination: 1. Automated exposure control 2. Adjustment of the mA and/or kV according to patient size 3. Use of iterative reconstruction technique Electronically signed by: Handy Childers MD (03/23/2019 5:02 PM) [facility]
== END | disposition home or self-care (01) ==
LOC: KCIC CT 12:57
PROVIDERS: ATTEND Family Medicine
DX: K57.30 Diverticulosis of large intestine without perforation or abscess without bleeding (principal); K57.10 Diverticulosis of small intestine without perforation or abscess without bleeding; K76.0 Fatty (change of) liver, not elsewhere classified; K76.89 Other specified diseases of liver; D73.89 Other diseases of spleen; N28.1 Cyst of kidney, acquired; J44.9 Chronic obstructive pulmonary disease, unspecified; I10 Essential (primary) hypertension; E11.9 Type 2 diabetes mellitus without complications; F17.200 Nicotine dependence, unspecified, uncomplicated; Z95.0 Presence of cardiac pacemaker; Z79.01 Long term (current) use of anticoagulants
CPT/HCPCS: 74177; Q9966; Q9967

== ENCOUNTER → 2019-07-15 | Outpatient (CLI) | payer OTHER ==
[~2019-07-15] MED LIST changes: -EZET10TA18 PO; +EZET10TA20 PO; -IOHEXOL 240 MG/ML 50ML VIAL. PO ONE; -IOHEXOL 300 MG/ML 100ML VIAL. IV ONE; +METF500T11 PO; -METF500T9 PO; +SIMV40TA18 PO; -SIMV40TA3 PO
--- NOTE | 2019-07-15 11:32 | RAD ---
MR#: [id number] Date of Study: 07/15/2019 Ordering Physician: SIM SHAW, Referring Physician: SIM SHAW, Tech: ZORA Juan, RDMS, RTR APPROVED REPORT Patient Location: OUT-PATIENT Indications Claudication: Rest Pain: Edema Risk Factors Hypertension Obesity Diabetes Medications Aspirin VELOCITY AND DOPPLER WAVEFORM ANALYSIS RIGHT cm/secWaveformSeverity LEFT cm/secWaveform Severity pCFA 115.7BiphasicpCFA 134.6Biphasic Prof Fem Art. 54.4Prof Fem Art. 66.4 Fem Art Prox. 87.6BiphasicFem Art Prox. 76.5Biphasic Fem Art Mid. 83.3BiphasicFem Art Mid. 81.4Biphasic Fem Art Dist. 83.9BiphasicFem Art Dist. 66.7Biphasic Pop Art(Fossa) Pop Art(AK) 48.3Triphasic RE[employer] WORKER Dist. 73.5BiphasicPTA Dist. 75.8Biphasic VICKY Dist. 51.5BiphasicATA Dist. 71.3Biphasic DPA 18BiphasicDPA 82Biphasic Findings Grayscale images of the bilateral lower extremity arterial vessels reveals mild diffuse plaque. Spectral waveforms and color Doppler are mostly biphasic throughout the lower extremity arteries bila terally. Normal velocities are noted. Bilateral peroneal arteries are not visualized. There is likely diffuse disease distal to the ankle on the right side. Otherwise no focal stenosis identified. Critical Notification Critical Value: No <Conclusion> 1. No focal high-grade stenosis identified in the bilateral lower extremities. 2. Probable small vessel disease at the level of the ankle involving the right foot. Signed by : Akin Hughes, Electronically Approved : 07/15/2019 11:31:45
--- NOTE | 2019-07-15 11:33 | RAD ---
MR#: [id number] Date of Study: 07/15/2019 Ordering Physician: SIM SHAW, Referring Physician: SIM SHAW, Tech: ZORA Juan, RDWI, RTR APPROVED REPORT Bilateral Lower Extremity Venous Study for Venous Competence, DVT Patient Location: OUT-PATIENT Indications Lower Extremity Pain: Lower Extremity Edema: Shortness of breath Risk Factors Obesity Medications Aspirin Findings The bilateral lower extremity deep veins were evaluated for thrombus with color Doppler, spectral and grayscale images. On the right the grayscale images of the common femoral, superficial femoral and popliteal veins do n ot demonstrate any evidence of thrombus and these veins appear to be compressible. The below-knee vei ns were not well visualized but grossly appear to be compressible. Spectral imaging and color Doppler do not reveal any evidence of obstruction to flow with normal respirophasic variation above the knee . Below the knee there is spontaneous flow noted. On the left, the grayscale images of the common femoral, superficial femoral and popliteal veins do n ot demonstrate any evidence of thrombus and these veins appear to be compressible. The below-knee vei ns again were not well visualized but grossly appear to be compressible. Spectral imaging and color D oppler do not reveal any evidence of obstruction to flow with normal respirophasic variation above th e knee. The below-knee veins demonstrate spontaneous flow. Critical Notification Critical Value: No <Conclusion> No evidence of DVT in the BLE. Signed by : Akin Hughes, Electronically Approved : 07/15/2019 11:33:33
--- NOTE | 2019-07-15 11:48 | RAD ---
MR#: [id number] Date of Study: 07/15/2019 Ordering Physician: SIM SHAW, Referring Physician: SIM SHAW, Tech: ZORA Juan, RDAZ, RTR APPROVED REPORT Patient Location : OUT-PATIENT Indications Lower Extremity Pain : Lower Extremity Edema : Risk Factors Obesity Past History Compression Stockings : Medications Aspirin Findings The right great saphenous vein measures 7.6 mm and the left great saphenous vein measures 5.4 mm. No evidence of reflux is identified bilaterally. Bilateral lesser saphenous veins also do not show any e vidence of reflux. Critical Notification Critical Value: No <Conclusion> Negative for reflux in the bilateral greater and lesser saphenous veins. Signed by : Akin Hughes, Electronically Approved : 07/15/2019 11:47:36
== END | disposition home or self-care (01) ==
LOC: US 09:33
PROVIDERS: ATTEND Internal Medicine Cardiovascular Disease
DX: E11.51 Type 2 diabetes mellitus with diabetic peripheral angiopathy without gangrene (principal); I70.293 Other atherosclerosis of native arteries of extremities, bilateral legs; M79.662 Pain in left lower leg; M79.661 Pain in right lower leg; I10 Essential (primary) hypertension; E66.9 Obesity, unspecified; Z79.82 Long term (current) use of aspirin
CPT/HCPCS: 93925; 93970

== ENCOUNTER → 2021-01-23 | Outpatient (CLI) | payer OTHER ==
[~2021-01-23] MED LIST changes: -ASCO500T2 PO; +ASCO500T4 PO; +METF-658 PO; -METF500T11 PO
--- NOTE | 2021-01-23 15:13 | CARD ---
MR#: [id number] Date of Study: 01/23/2021 Ordering Physician: SIM SHAW, Referring Physician: SIM SHAW, Tech: Alexander Moreno CORI APPROVED REPORT EXAM: Two-dimensional and M-mode echocardiogram with Doppler and color Doppler. Other Information Quality : FairHR: 72bpm Rhythm : Pacemaker INDICATION Dyspnea CAD RISK FACTORS Hypertension Obesity 2D DIMENSIONS Left Atrium(2D)4.7 (1.6-4.0cm)IVSd1.0 (0.7-1.1cm) Aortic Root(2D)3.0 (2.0-3.7cm)LVDd5.1 (3.9-5.9cm) LVOT Diameter2.0 (1.8-2.4cm)PWd1.1 (0.7-1.1cm) LVDs3.9 (2.5-4.0cm)FS (%) 24.9 % SV61.9 mlLVEF(%)49.0 (>50%) Aortic Valve AoV Peak Amador.160.3cm/sAoV VTI33.9cm AO Peak GR.10.3mmHgLVOT Peak Amador.89.8cm/s AO Mean GR.6mmHgAVA (VMAX)1.84cm2 Mitral Valve MV E Xuggfnyn14.8cm/sMV E Peak Gr.4mmHg MV DECEL [id number] A Qfmpkjlv94.9cm/s MV E Mean Gr.2mmHgE/A Ratio0.6 Pulmonary Valve PV Peak Rukdaqwv41.2cm/s Tricuspid Valve TR P. Fgkrkozq843hh/sTR Peak Gr.25mmHg LEFT VENTRICLE The left ventricle is normal size. There is borderline to mild concentric left ventricular hypertroph y. The left ventricular systolic function is mildly impaired. Estimated ejection fraction 40-45%. Th ere is global hypokinesis of the left ventricle. Transmitral Doppler flow pattern is Grade I-abnormal relaxation pattern. RIGHT VENTRICLE The right ventricle is normal size. There is normal right ventricular wall thickness. The right ventr icular systolic function is normal. ATRIA The left atrium is mildly dilated. The right atrium size is normal. The interatrial septum is intact with no evidence for an atrial septal defect or patent foramen ovale as noted on 2-D or Doppler imagi ng. AORTIC VALVE The aortic valve is calcified but opens well. Doppler and Color Flow revealed no significant aortic r egurgitation. There is no significant aortic valvular stenosis. MITRAL VALVE The mitral valve is calcified but opens well. There is no evidence of mitral valve prolapse. There is no mitral valve stenosis. Doppler and Color-flow revealed trace mitral regurgitation. TRICUSPID VALVE The tricuspid valve is normal in structure and function. Doppler and Color Flow revealed trace tricus pid regurgitation. Normal PAP. There is no tricuspid valve stenosis. PULMONIC VALVE The pulmonic valve is not well visualized. GREAT VESSELS The aortic root is normal in size. The ascending aorta is normal in size. The IVC was not visualized. PERICARDIAL EFFUSION There is no evidence of significant pericardial effusion. Critical Notification Critical Value: No <Conclusion> The left ventricular systolic function is mildly impaired. Estimated ejection fraction 40-45%. Transmitral Doppler flow pattern is Grade I-abnormal relaxation pattern. Trace mitral regurgitation. Trace tricuspid regurgitation. There is no evidence of significant pericardial effusion. Signed by : Jeff Stallings, Electronically Approved : 01/23/2021 15:12:49
== END ==
LOC: ECHO 11:31
PROVIDERS: ATTEND Internal Medicine Cardiovascular Disease
DX: I08.0 Rheumatic disorders of both mitral and aortic valves (principal); I50.22 Chronic systolic (congestive) heart failure
CPT/HCPCS: 93306